=== PATIENT | female | born 1985 ===

== ENCOUNTER 2020-12-23 21:55 | Emergency (ER) | payer SELFPAY ==
[2020-12-23] MEDS ORDERED: Sodium Chloride 0.9% 10 ML Syringe FLUSH PRN (23:23)
[2020-12-23] MEDS ORDERED: Lactated Ringers 1,000 ML IV ONE (23:23)
[2020-12-23] MEDS ORDERED: Benzonatate 100 MG Cap PO ONE (23:23)
[2020-12-23] MEDS ORDERED: Ketorolac 15 MG/ML SDV IVPUSH ONE (23:23)
[2020-12-23] MEDS ORDERED: Ondansetron 4 MG/2 ML SDV IVPUSH ONE (23:24)
--- NOTE | 2020-12-23 23:30 | EDM.PDOC ---
ED HPI GENERAL MEDICAL PROBLEM - General Chief Complaint: Respiratory Problem Stated Complaint: COVID+/DIARRHEA/CHILLS/BODY ACHE/FEVER/DEHYDRATION Time Seen by Provider: 12/23/20 23:01 - History of Present Illness INITIAL COMMENTS - FREE TEXT/NARRATIVE: Patient arrived to ED by private vehicle Symptoms began 12/17/2020 with diagnosis of COVID-19 later that day Reports onset of nausea, vomiting, diarrhea, body aches, headaches, fever Developed cough on second or third day, for which she has been prescribed promethazine/codeine Cough has progressed despite use of that medication Endorses shortness of breath Past 2 days has developed vomiting Estimates "30" episodes of vomiting today Has not been able to tolerate oral intake Endorses persistence of other symptoms since onset Overall pain severity is rated 10/10 Abdomen Pain Score (Numeric/FACES): 10 - Related Data Allergies Allergy/AdvReac Type Severity Reaction Status Date / Time No Known Allergies Allergy Verified 12/23/20 22:44 Home Meds: Home Meds Codeine/Promethazine HCl [Promethazine-Codeine Syrup] 0 ml PO ASDIRECTED PRN 12/23/20 [History] Benzonatate 100 mg PO TID PRN #12 capsule 12/24/20 [Rx] ondansetron HCL [Ondansetron HCl] 4 mg PO Q6H PRN #15 tablet 12/24/20 [Rx] Past Medical History - Past Health History Medical/Surgical History: Denies Medical/Surgical History Social & Family History - Tobacco Use Tobacco Use Status *Q: Never Tobacco User ED ROS GENERAL - Review of Systems Review Of Systems: See Below Free Text/Narrative/Comment: Constitutional -; malaise/fatigue fever Eyes - no eye pain; no visual disturbance ENT - no rhinorrhea; no congestion; no epistaxis Cardiovascular - no chest pain Respiratory - shortness of breath; cough Gastrointestinal - abdominal pain; nausea; vomiting; diarrhea Genitourinary - no dysuria Musculoskeletal - no neck pain; no back pain; no extremity injury; myalgias Neurological - headache; no speech disturbance; no weakness ED EXAM, GENERAL - Physical Exam Exam: See Below Free Text/Narrative:: Constitutional - awake; alert; moderate pain in general distress Head - no facial swelling or weakness Eyes - extra ocular motion intact; conjunctiva normal ENT - no nasal deformity; no epistaxis; normal phonation Neck - no swelling Respiratory - normal respiratory effort; mild, bibasilar crackles; no wheezing; no stridor Cardiovascular - regular rhythm; tachycardia; S1; S2; grade 1/6 systolic murmur GI/Abdomen - normal bowel sounds; soft; mild tenderness right mid and lower abdomen; no rebound; no guarding; no mass Musculoskeletal - grossly normal strength and motion; no swelling or deformity Skin - warm; dry Neurologic - normal speech; no weakness Psychiatric - normal mood and affect; memory and attention normal Course - Vital Signs Text/Narrative:: . Considered etiologies included: COVID-19, pneumonia, dehydration, metabolic derangement Symptoms and examination were discussed Investigations were initiated Treatment was initiated with IV fluid infusion, benzonatate, ketorolac, and ondansetron At reevaluation there was improvement in nausea and discomfort and tachycardia There was no significant change in cough Results were discussed, with findings for pneumonia consistent with COVID-19 Pulse oximetry remained adequate Patient tolerated oral fluid intake without further vomiting Symptomatic treatment and self-isolation was reviewed Albuterol inhaler with spacer was provided for treatment of cough Patient was felt to be stable for outpatient follow-up Return precautions were provided Last Recorded V/S: Last Vital Signs Temp 36.4 C 12/23/20 22:45 Pulse 111 H 12/23/20 22:45 Resp 20 12/23/20 22:45 BP 90/59 L 12/23/20 22:45 Pulse Ox 95 12/24/20 01:34 - Orders/Labs/Meds Orders: Active Orders 24 hr Category Date Time Status Chest 1V Frontal [CR] Stat Exams 12/23/20 23:23 Taken Peripheral IV Insertion Adult [OM.PC] Stat Oth 12/23/20 23:23 Ordered Labs: Laboratory Tests 12/24/20 12/24/20 Range/Units 00:28 00:28 WBC 4.97 (3.98-10.04) K/mm3 RBC 5.29 H (3.98-5.22) M/mm3 Hgb 15.0 (11.2-15.7) gm/dl Hct 44.4 (34.1-44.9) % MCV 83.9 (79.4-94.8) fl MCH 28.4 (25.6-32.2) pg MCHC 33.8 (32.2-35.5) g/dl RDW Std Deviation 39.6 (36.4-46.3) fL Plt Count 174 L (182-369) K/mm3 MPV 9.9 (9.4-12.3) fl Neut % (Auto) 65.1 (34.0-71.1) % Lymph % (Auto) 25.2 (19.3-51.7) % [place] % (Auto) 9.1 (4.7-12.5) % Eos % (Auto) 0 L (0.7-5.8) Baso % (Auto) 0.4 (0.1-1.2) % Neut # (Auto) 3.24 (1.56-6.13) K/mm3 Lymph # (Auto) 1.25 (1.18-3.74) K/mm3 [place] # (Auto) 0.45 H (0.24-0.36) K/mm3 Eos # (Auto) 0.00 L (0.04-0.36) K/mm3 Baso # (Auto) 0.02 (0.01-0.08) K/mm3 Manual Slide Review Normal smear Sodium 135 L (136-145) mEq/L Potassium 3.9 (3.5-5.1) mEq/L Chloride 98 (98-107) mEq/L Carbon Dioxide 28 (21-32) mEq/L Anion Gap 12.9 (5-15) BUN 10 (7-18) mg/dL Creatinine 0.9 (0.55-1.02) mg/dL Est Cr Clr Drug Dosing 73.90 mL/min Estimated GFR (MDRD) > 60 (>60) mL/min BUN/Creatinine Ratio 11.1 L (14-18) Glucose 117 H (70-99) mg/dL Calcium 7.5 L (8.5-10.1) mg/dL Total Bilirubin 0.3 (0.2-1.0) mg/dL AST 48 H (15-37) U/L ALT 29 (14-59) U/L Alkaline Phosphatase 70 (46-116) U/L Total Protein 7.0 (6.4-8.2) g/dl Albumin 2.9 L (3.4-5.0) g/dl Globulin 4.1 gm/dL Albumin/Globulin Ratio 0.7 L (1-2) Meds: Medications Discontinued Medications Generic Name Dose Route Start Last Admin Trade Name Freq PRN Reason Stop Dose Admin Albuterol 0 gm 12/24/20 01:23 12/24/20 01:33 Albuterol 6.7 Gm Inhaler INH 2 inhalation Q4H PRN Administration Cough Benzonatate 200 mg 12/23/20 23:23 12/23/20 23:54 Benzonatate 100 Mg Cap PO 12/23/20 23:24 200 mg ONETIME ONE Administration Lactated Ringer's 1,000 mls @ 999 mls/hr 12/23/20 23:23 12/23/20 23:54 Ringers, Lactated IV 12/24/20 00:23 999 mls/hr .BOLUS ONE Administration Ketorolac Tromethamine 15 mg 12/23/20 23:23 12/23/20 23:53 Ketorolac 15 Mg/Ml Sdv IVPUSH 12/23/20 23:24 15 mg ONETIME ONE Administration Ondansetron HCl 4 mg 12/23/20 23:24 12/23/20 23:53 Ondansetron 4 Mg/2 Ml Sdv IVPUSH 12/23/20 23:25 4 mg ONETIME ONE Administration Sodium Chloride 10 ml 12/23/20 23:23 12/23/20 23:56 Sodium Chloride 0.9% 10 Ml Syringe FLUSH 10 ml ASDIRECTED PRN Administration Keep Vein Open - Radiology Interpretation Free Text/Narrative:: XR chest, AP portable, interpreted by press writer: Patchy bilateral infiltrates including left perihilar and bibasilar Departure - Departure Time of Disposition: 01:30 Disposition: Home, Self-Care 01 Clinical Impression: COVID-19 virus infection, Pneumonia due to COVID-19 virus, Gastroenteritis - Discharge Information *PRESCRIPTION DRUG MONITORING PROGRAM REVIEWED*: Not Applicable *COPY OF PRESCRIPTION DRUG MONITORING REPORT IN PATIENT CARMELA: Not Applicable Prescriptions: Benzonatate 100 mg PO TID PRN #12 capsule PRN Reason: Cough ondansetron HCL [Ondansetron HCl] 4 mg PO Q6H PRN #15 tablet PRN Reason: Nausea/Vomiting Instructions: COVID-19: What to Do if You Are Sick - [facility] (05/02/2020) Referrals: PCP,None [Primary Care Provider] - Forms: ED Department Discharge Additional Instructions: Your evaluation in the emergency department showed findings for pneumonia due to COVID-19 Continue self-isolation in accordance with CDC guidelines for COVID-19 Isolation can be discontinued when: - there has been improvement in symptoms and - there has been no fever for 24 to 48 hours and - at least 10 days have passed since symptoms began Return if condition worsens May resume general activity and light diet as tolerated If vomiting occurs, stop oral intake for 30-60 minutes, then resume clear liquid sips, 2-3 every 10-15 minutes, and advance slowly as tolerated May use LOPERAMIDE (Imodium) as needed for diarrhea, per product instructions May take ONDANSETRON as prescribed, as needed for nausea/vomiting May take BENZONATATE as prescribed, as needed for cough Use ALBUTEROL inhaler via spacer, 2 puffs every 4 hours as needed, for cough or shortness of breath Continue usual medications Follow-up with primary care provider is recommended Sepsis Event Note (ED) - Evaluation Sepsis Screening Result: No Definite Risk - Focused Exam Vital Signs: Vital Signs Temp Pulse Resp BP Pulse Ox Pulse Ox 12/24/20 01:34 95 12/23/20 22:45 36.4 C 111 H 20 90/59 L 95 - My Orders Last 24 Hours: My Active Orders 12/23/20 23:23 Chest 1V Frontal [CR] Stat Peripheral IV Insertion Adult [OM.PC] Stat - Assessment/Plan Last 24 Hours: My Active Orders 12/23/20 23:23 Chest 1V Frontal [CR] Stat Peripheral IV Insertion Adult [OM.PC] Stat
[2020-12-24] MEDS ORDERED: Albuterol 6.7 GM Inhaler INH PRN (01:23)
--- NOTE | 2020-12-24 06:57 | CR ---
Chest: Frontal view of the chest was obtained. Comparison: No prior chest imaging is available. Patchy area of increased density are seen within both mid and lower lungs. Heart size and mediastinum are normal. Bony structures are unremarkable. Impression: 1. Increased density within the mid and lower lungs. Findings most likely represent COVID pneumonia. Diagnostic code #3
== END 2020-12-24 02:00 | disposition home or self-care (01) ==
LOC: JD.ED 21:55
DX: U07.1 COVID-19 (principal); J12.82 Pneumonia due to coronavirus disease 2019; K52.9 Noninfective gastroenteritis and colitis, unspecified
CPT/HCPCS: 36415; 71045; 71045-26; 80053; 85025; 94640; 96374; 96375; 99284; 99284-25; A9270-GY; J1885; J2405; J7120

== ENCOUNTER 2020-12-25 16:19 | Inpatient (IN) | payer SELFPAY ==
[2020-12-25] MEDS ORDERED: Metoclopramide 10 MG/2 ML SDV IVPUSH ONE (16:46)
[2020-12-25] MEDS ORDERED: REMDESIVIR 200 MG in Sodium Chloride 0.9% 250 ML IV ONE (16:51)
[2020-12-25] MEDS ORDERED: Dexamethasone 4 MG/ML 5 ML MDV IV ONE (16:54)
--- NOTE | 2020-12-25 16:56 | EDM.PDOC ---
ED HPI GENERAL MEDICAL PROBLEM - General Chief Complaint: Respiratory Problem Stated Complaint: COVID+ SOB Time Seen by Provider: 12/25/20 16:31 Source of Information: Reports: Patient History Limitations: Reports: No Limitations - History of Present Illness INITIAL COMMENTS - FREE TEXT/NARRATIVE: 35-year-old female presents to the ED with dyspnea and worsening symptoms of COVID-19 pneumonia. She reports that pulse oximeter at home is as low as 84 to 88%. She is dyspneic on minimal exertion such as walking from the bedroom to the bathroom. Continues to have a paroxysmal mildly productive cough. When seen through the ED 2 days ago she had bilateral pneumonia in the lower lobes. She believes her initial onset of illness was December 17 making her on day 8 of current illness. Continues to have low-grade fever and chills. Continues to have nausea and vomiting and diarrhea. She states she has a loose yellow stool almost every hour worsened by coughing. She has not been able to retain any significant amount of fluids or solids for 5 days. Feels very weak and dizzy upon standing. She lives alone . She believes she contracted the virus from one of her friends. She is normally not on any medications. She was placed on codeine with Phenergan cough syrup and benzatonate cough tablets and Zofran sublingual [address] Meehan through the ED. She states for the most part she has been bed ridden since going home. Onset: Sudden Onset Date: 12/17/20 (Onset of fever chills body aches and headache.) Duration: Day(s):, Constant, Getting Worse Location: Reports: Chest (Paroxysmal productive sounding cough at times.), Other (Continued nausea and vomiting and diarrhea with inability eat or drink. Continued low-grade fever.) Quality: Reports: Ache (Neurolyse myalgia and persistent headache) Severity: Severe Improves with: Reports: None Worsens with: Reports: Other (Is worse when she stands up and has to get to the bathroom.) Context: Denies: Activity, Exercise, Lifting, Sick Contact, Trauma, Other Associated Symptoms: Reports: Chest Pain, Cough, cough w sputum, Diaphoresis, Fever/Chills (With initial onset of illness.), Headaches ( More so at the initial onset of illness.), Loss of Appetite ( Headaches persist.), Malaise, Nausea/Vomiting, Shortness of Breath, Weakness, Other (Persistent diarrhea with 1 small yellow stool per hour almost. This would be considered starvation stools.). Denies: No Other Symptoms (Upper central chest pain from coughing.), Confusion, Rash, Seizure, Syncope Generalized Pain Score (Numeric/FACES): 6 - Related Data Allergies Allergy/AdvReac Type Severity Reaction Status Date / Time No Known Allergies Allergy Verified 12/25/20 16:29 Home Meds: Home Meds Codeine/Promethazine HCl [Promethazine-Codeine Syrup] 0 ml PO ASDIRECTED PRN 12/23/20 [History] Benzonatate 100 mg PO TID PRN #12 capsule 12/24/20 [Rx] ondansetron HCL [Ondansetron HCl] 4 mg PO Q6H PRN #15 tablet 12/24/20 [Rx] Past Medical History - Past Health History Medical/Surgical History: Denies Medical/Surgical History HEENT History: Reports: Impaired Vision Cardiovascular History: Reports: None Respiratory History: Reports: None Gastrointestinal History: Reports: None Genitourinary History: Reports: None 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 Musculoskeletal History: Reports: None Neurological History: Reports: None Psychiatric History: Reports: None Endocrine/Metabolic History: Reports: None Hematologic History: Reports: None Immunologic History: Reports: None Oncologic (Cancer) History: Reports: None Dermatologic History: Reports: None - Infectious Disease History Infectious Disease History: Reports: Chicken Pox, Novel Coronavirus - Past Surgical History HEENT Surgical History: Reports: None Social & Family History - Family History Family Medical History: No Pertinent Family History - Tobacco Use Tobacco Use Status *Q: Never Tobacco User - Caffeine Use Caffeine Use: Reports: Energy Drinks - Recreational Drug Use Recreational Drug Use: No - Living Situation & Occupation Living situation: Reports: Single, Alone Occupation: Employed ED ROS GENERAL - Review of Systems Review Of Systems: See Below Constitutional: Reports: Fever, Chills, Malaise, Weakness, Fatigue, Decreased Appetite, Weight Loss HEENT: Reports: Throat Pain (Mild sore throat.), Other (Nasal congestion. Associated loss of sense of taste and smell.) Respiratory: Reports: Shortness of Breath, Cough, Sputum. Denies: Wheezing, Pleuritic Chest Pain, Hemoptysis, Other Cardiovascular: Reports: Chest Pain (Upper central chest pain from coughing.), Dyspnea on Exertion, Lightheadedness (Lightheaded and dizzy upon standing.). Denies: Blood Pressure Problem, Claudication, Edema, Orthopnea, Palpitations Endocrine: Reports: Fatigue GI/Abdominal: Reports: Diarrhea, Nausea (Small quantity yellow loose stool almost every hour.), Vomiting (Persistent nausea and vomiting. Emesis is bilious.) : Reports: Other (Urine is dark ruba in color.) Musculoskeletal: Reports: Muscle Pain Skin: Reports: No Symptoms (Generalized myalgia) Neurological: Reports: Dizziness, Headache, Difficulty Walking (Due to weakness and dyspnea.), Weakness. Denies: Numbness, Syncope, Tingling Psychiatric: Reports: No Symptoms Hematologic/Lymphatic: Reports: No Symptoms Immunologic: Reports: No Symptoms ED EXAM, GENERAL - Physical Exam Exam: See Below Exam Limited By: No Limitations General Appearance: Alert, WD/WN, Mild Distress, Other (Appears ill. She does feel warm palpation. Nurses recorded temperature is 36.3 degrees. Heart rate at the bedside was 118 and sinus. Respiratory is 24 with O2 sats of 92% room air. It wavers between 86 to 92%. Blood pressure 123/79.) Eye Exam: Bilateral Eye: Normal Inspection, PERRL (No scleral icterus or blepharal pallor.) Ears: Normal TMs Throat/Mouth: Normal Inspection, Normal Lips, Normal Oropharynx, Other (Tongue is very dry and coated white. Oropharynx shows no erythema or exudate.) Head: Atraumatic, Normocephalic Neck: Normal Inspection, Supple, Non-Tender, Full Range of Motion. No: Carotid Bruit, Lymphadenopathy (L), Lymphadenopathy (R) Respiratory/Chest: Lungs Clear, No Accessory Muscle Use, Respiratory Distress, Rhonchi (Rhonchi throughout all posterior lung casey slightly worse on the left as compared to the right.), Wheezing (Very rare expiratory wheeze.) Cardiovascular: Normal Peripheral Pulses (Tachypnea at rest with hypoxemia.), Regular Rate, Rhythm, No Edema, No Gallop, No Murmur, No Rub Peripheral Pulses: 3+: Carotid (L), Carotid (R), Posterior Tibial (L), Posterior Tibial (R), Dorsalis Pedis (L), Dorsalis Pedis (R) GI/Abdominal: Normal Bowel Sounds, Soft, Non-Tender, No Organomegaly, No Distention, No Abnormal Bruit Back Exam: Normal Inspection, Full Range of Motion. No: CVA Tenderness (L), CVA Tenderness (R) Extremities: Normal Inspection, Normal Range of Motion, Non-Tender, No Pedal Edema Neurological: Alert, Oriented, CN II-XII Intact, Normal Cognition Psychiatric: Normal Affect, Normal Mood Skin Exam: Warm, Dry, Intact, Normal Color, No Rash #1 Interpretation EKG Date: 12/25/20 Time: 17:01 Rhythm: Other (Sinus tachycardia) Rate (Beats/Min): 102 [place]: Normal P-Wave: Present QRS: Other (RSR prime wave leads V1 and V2 consider normal variant.) ST-T: Other (T wave flattening V1 to V2 leads III and aVF. Consider metabolic abnormality) QT: Normal EKG Interpretation Comments: Abnormal ECG Course - Vital Signs Last Recorded V/S: Last Vital Signs Temp 36.2 C 12/25/20 16:57 Pulse 99 12/25/20 17:55 Resp 16 12/25/20 17:55 BP 106/74 12/25/20 17:55 Pulse Ox 91 L 12/25/20 17:55 - Orders/Labs/Meds Orders: Active Orders 24 hr Category Date Time Status Chest 1V Frontal [CR] Stat Exams 12/25/20 16:47 Taken URINALYSIS W/MICROSCOPIC [UA W/MICROSCOPIC] [URIN] Stat Lab 12/25/20 16:49 Ordered Codeine/Promethazine [Phenergan with Codeine] Med 12/25/20 17:40 Active 5 ml PO ASDIRECTED PRN Dextrose 5%-Lactated Ringers 1,000 ml Med 12/25/20 17:00 Active IV ASDIRECTED Medication Orders Acetaminophen (Acetaminophen 325 Mg Tab) 650 mg PO Q4H PRN PRN Reason: Pain (Mild 1-3)/fever Albuterol/Ipratropium (Albuterol/Ipratropium 3.0-0.5 Mg/3 Ml Neb Soln) 3 ml NEB Q4H PRN PRN Reason: Shortness Of Breath/wheezing Dexamethasone (Dexamethasone 4 Mg Tab) 6 mg PO DAILY MIRIAM Docusate Sodium (Docusate Sodium 100 Mg Cap) 100 mg PO BID PRN PRN Reason: Constipation Enoxaparin Sodium (Enoxaparin 40 Mg/0.4 Ml Syringe) 40 mg SUBCUT DAILY [facility] Dextrose/Lactated Ringer's (Dextrose 5%-Lactated Ringers) 1,000 mls @ 250 mls/hr IV ASDIRECTED [facility] Last Admin: 12/25/20 17:44 Dose: 250 mls/hr Documented by: JESSICA Sodium Chloride (Normal Saline) 1,000 mls @ 125 mls/hr IV ASDIRECTED [facility] Remdesivir 100 mg/ Sodium (Chloride) 100 mls @ 100 mls/hr IV Q24H [facility] Stop: 12/29/20 12:59 Ondansetron HCl (Ondansetron 4 Mg Tab.Dis) 4 mg PO Q4H PRN PRN Reason: nausea, able to take PO Ondansetron HCl (Ondansetron 4 Mg/2 Ml Sdv) 4 mg IV Q4H PRN PRN Reason: Nausea/Vomiting Oxycodone HCl (Oxycodone 5 Mg Tab) 5 mg PO Q4H PRN PRN Reason: Pain (moderate 4-6) Promethazine HCl/Codeine (Codeine/Promethazine 10-6.25 Mg/5 Ml Syrup 5 Ml Ud Cup) 5 ml PO ASDIRECTED PRN PRN Reason: Cough Temazepam (Temazepam 15 Mg Cap) 15 mg PO BEDTIME PRN PRN Reason: Sleep Labs: Laboratory Tests 12/25/20 Range/Units 16:50 Puncture Site Rt radial ABG pH 7.45 (7.35-7.45) ABG pCO2 41.1 (35.0-45.0) mmHg ABG pO2 47.0 L (80.0-100.0) mmHg ABG HCO3 28.4 H (22.0-26.0) meq/L ABG O2 Saturation 81.4 L (96.0-97.0) % ABG Base Excess 4.5 H (-2-2.0) Mike Test Positive O2 Delivery Device Room air Meds: Medications Generic Name Dose Route Start Last Admin Trade Name Freq PRN Reason Stop Dose Admin Acetaminophen 650 mg 12/25/20 17:43 Acetaminophen 325 Mg Tab PO Q4H PRN Pain (Mild 1-3)/fever Albuterol/Ipratropium 3 ml 12/25/20 17:43 Albuterol/Ipratropium 3.0-0.5 Mg/3 Ml Neb Soln NEB Q4H PRN Shortness Of Breath/wheezing Dexamethasone 6 mg 12/26/20 09:00 Dexamethasone 4 Mg Tab PO DAILY MIRIAM Docusate Sodium 100 mg 12/25/20 17:43 Docusate Sodium 100 Mg Cap PO BID PRN Constipation Enoxaparin Sodium 40 mg 12/26/20 09:00 Enoxaparin 40 Mg/0.4 Ml Syringe SUBCUT DAILY MIRIAM Dextrose/Lactated Ringer's 1,000 mls @ 250 mls/hr 12/25/20 17:00 12/25/20 17:44 Dextrose 5%-Lactated Ringers IV 250 mls/hr ASDIRECTED MIRIAM Administration Sodium Chloride 1,000 mls @ 125 mls/hr 12/25/20 17:45 Normal Saline IV ASDIRECTED MIRIAM Remdesivir 100 mg/ Sodium 100 mls @ 100 mls/hr 12/26/20 12:00 Chloride IV 12/29/20 12:59 Q24H [facility] Ondansetron HCl 4 mg 12/25/20 17:43 Ondansetron 4 Mg Tab.Dis PO Q4H PRN nausea, able to take PO Ondansetron HCl 4 mg 12/25/20 17:43 Ondansetron 4 Mg/2 Ml Sdv IV Q4H PRN Nausea/Vomiting Oxycodone HCl 5 mg 12/25/20 17:43 Oxycodone 5 Mg Tab PO Q4H PRN Pain (moderate 4-6) Promethazine HCl/Codeine 5 ml 12/25/20 17:40 Codeine/Promethazine 10-6.25 Mg/5 Ml Syrup 5 Ml Ud Cup PO ASDIRECTED PRN Cough Temazepam 15 mg 12/25/20 17:43 Temazepam 15 Mg Cap PO BEDTIME PRN Sleep Discontinued Medications Generic Name Dose Route Start Last Admin Trade Name Freq PRN Reason Stop Dose Admin Dexamethasone 6 mg 12/25/20 16:54 12/25/20 17:43 Dexamethasone 4 Mg/Ml 5 Ml Mdv IV 12/25/20 16:55 Not Given ONETIME ONE Remdesivir 200 mg/ Sodium 250 mls @ 250 mls/hr 12/25/20 16:51 12/25/20 17:47 Chloride IV 12/25/20 16:52 250 mls/hr ONETIME ONE Administration Remdesivir Confirm 12/25/20 17:14 Remdesivir Administered 12/25/20 17:15 Dose 100 mls @ as directed .ROUTE .STK-MED ONE Metoclopramide HCl 7.5 mg 12/25/20 16:46 12/25/20 17:45 Metoclopramide 10 Mg/2 Ml Sdv IVPUSH 12/25/20 16:47 Not Given ONETIME ONE Ondansetron HCl 4 mg 12/25/20 18:08 12/25/20 18:17 Ondansetron 4 Mg/2 Ml Sdv IVPUSH 12/25/20 18:09 4 mg ONETIME ONE Administration - Radiology Interpretation Free Text/Narrative:: 35-year-old female whom is known to be COVID-19 positive diagnosed 2 days ago and seen through the ED presents to the ED due to worsening symptoms of par oxysmal cough persistent nausea vomiting and minimal diarrhea with inability to eat or drink. Associated headache low-grade fever and severe paroxysmal cough. O2 sats at home are anywhere between 84 and 88%. In the ED she has been between 84 and 92% on room air she clinically has rhonchi throughout all lung casey posteriorly. On chest x-ray done 2 days ago she had viral pneumonia involving both lower lobes of her lung and lingula on the left side. Plan she will have ABGs completed. She will then be started on oxygen 2 L/min by nasal cannula. She is dehydrated. She will start D5 Ringer's lactate at 250 mils per hour. Routine labs to be ordered including serum ferritin and LDH in preparation for admission to the hospital. She will receive remdesivir 200 mg IV and dexamethasone 6 mg IV. - Re-Assessments/Exams Free Text/Narrative Re-Assessment/Exam: 12/25/20 18:01 chest x-ray done portable when compared to x-ray of the chest done 2 days ago reveals advancement of pneumonia to include all 5 lobes of her lungs. There is poor inspirational phase. Heart and mediastinum are normal.ABGs revealed a pH of 7.45 with a PCO2 of 41.1 and a PO2 of 47.0 on room air compatible with respiratory failure. Bicarb is 28.4 O2 saturations 81.4% on room air. No other labs are yet available. Apparently they have been drawn. 12/25/20 18:50 White count is normal at 5.82. The differential is 71.7% neutrophils. Hemoglobin is 15.1 with hematocrit of 45.2. Platelet count is 238,000. PT is 9.7 with an INR of less than 0.93. PTT is 27.1. D-dimer is 0.41 in the normal range. Sodium is 136 potassium is low at 3.0. Chloride 98 with a bicarb of 30. Anion gap is 11.0. BUN is 9 with a creatinine of 0.8 and a GFR greater than 60. Glucose is 131. Calcium slightly low at 7.9 from not eating. Magnesium is 2.3. Serum ferritin is elevated at 892. Liver function is normal. LDH elevated at 424 compatible with COVID-19 illness. Troponin I is less than 0.017. C-reactive protein is elevated at 7.4. BNP is 25. Total protein 7.6 with an albumin fraction low at 2.9 [address] from not eating. Dr. Omid Anderson on-call hospitalist is seen the patient in the ED an hour ago and admission orders have been written. Patient be transferred to the med surgery floor as soon as a bed is available. Departure - Departure Time of Disposition: 18:50 Disposition: Admitted As Inpatient 64 Condition: Serious Clinical Impression: 2019 novel coronavirus-infected pneumonia (NCIP), Volume depletion, Pneumonia due to COVID-19 virus Respiratory failure with hypoxia Qualifiers: Chronicity: acute Qualified Code(s): J96.01 - Acute respiratory failure with hypoxia - Discharge Information *PRESCRIPTION DRUG MONITORING PROGRAM REVIEWED*: Not Applicable *COPY OF PRESCRIPTION DRUG MONITORING REPORT IN PATIENT CARMELA: Not Applicable Sepsis Event Note (ED) - Evaluation Sepsis Screening Result: No Definite Risk - Focused Exam Vital Signs: Vital Signs Temp Pulse Resp BP Pulse Ox 12/25/20 16:57 36.2 C 108 H 24 H 113/77 92 L 12/25/20 16:35 36.3 C 108 H 24 H 123/79 92 L - My Orders Last 24 Hours: My Active Orders 12/25/20 16:47 Chest 1V Frontal [CR] Stat 12/25/20 16:49 URINALYSIS W/MICROSCOPIC [UA W/MICROSCOPIC] [URIN] Stat 12/25/20 17:00 Dextrose 5%-Lactated Ringers 1,000 ml IV ASDIRECTED - Assessment/Plan Last 24 Hours: My Active Orders 12/25/20 16:47 Chest 1V Frontal [CR] Stat 12/25/20 16:49 URINALYSIS W/MICROSCOPIC [UA W/MICROSCOPIC] [URIN] Stat 12/25/20 17:00 Dextrose 5%-Lactated Ringers 1,000 ml IV ASDIRECTED
[2020-12-25] MEDS ORDERED: Dextrose 5%-Lactated Ringers 1,000 ML IV SCH (17:00)
[2020-12-25] MEDS ORDERED: REMDESIVIR 100 MG ONE (17:14)
--- NOTE | 2020-12-25 17:39 | PCM.HP.2 ---
H&P History of Present Illness - General Date of Service: 12/25/20 Admit Problem/Dx: COVID-19 pneumonia with gastroenteritis Source of Information: Patient History Limitations: Reports: No Limitations - History of Present Illness Initial Comments - Free Text/Narative: The patient is a 35-year-old lady who had presented to the emergency department complaining of shortness of breath and worsening symptoms of COVID-19 pneumonia. The patient reports that she had been diagnosed with COVID-19 2 days prior to presentation. Initially, she had been placed on Phenergan with codeine as well as Tessalon Perles and oral Zofran. The patient reports that she has had nausea and vomiting along with diarrhea. She also reports that she has had fever and chills. The patient currently lives alone and she feels like she is just not getting any better. The patient does have a cough which is exacerbated by deep breathing. The patient also reports that she has been feeling weak and dizzy. The patient is not taking any medications and she has no significant health history. Onset of Symptoms: Reports: Gradual Duration of Symptoms: Reports: Day(s):, Getting Worse Location: Reports: Chest, Abdomen Quality: Reports: Ache Severity: Moderate Improves with: Reports: Medication, Rest Worsens with: Reports: Breathing, Movement Context: Denies: Sick Contact Associated Symptoms: Reports: cough w sputum, Diaphoresis, Fever/Chills, Nausea/Vomiting, Shortness of Breath, Other (Loss of sense of taste and smell) Generalized Pain Score (Numeric/FACES): 6 - Related Data Allergies/Adverse Reactions: Allergies Allergy/AdvReac Type Severity Reaction Status Date / Time No Known Allergies Allergy Verified 12/25/20 21:23 Home Medications: Home Meds Codeine/Promethazine HCl [Promethazine-Codeine Syrup] 0 ml PO ASDIRECTED PRN 12/23/20 [History] Benzonatate 100 mg PO TID PRN #12 capsule 12/24/20 [Rx] ondansetron HCL [Ondansetron HCl] 4 mg PO Q6H PRN #15 tablet 12/24/20 [Rx] Past Medical History - Past Health History Medical/Surgical History: Denies Medical/Surgical History HEENT History: Reports: Impaired Vision Cardiovascular History: Reports: None Respiratory History: Reports: None Gastrointestinal History: Reports: None Genitourinary History: Reports: None 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 Musculoskeletal History: Reports: None Neurological History: Reports: None Psychiatric History: Reports: None Endocrine/Metabolic History: Reports: None Hematologic History: Reports: None Immunologic History: Reports: None Oncologic (Cancer) History: Reports: None Dermatologic History: Reports: None - Infectious Disease History Infectious Disease History: Reports: Chicken Pox, Novel Coronavirus - Past Surgical History HEENT Surgical History: Reports: None Social & Family History - Family History Family Medical History: No Pertinent Family History - Tobacco Use Tobacco Use Status *Q: Never Tobacco User - Caffeine Use Caffeine Use: Reports: Energy Drinks - Recreational Drug Use Recreational Drug Use: No - Living Situation & Occupation Living situation: Reports: Single, Alone Occupation: Employed H&P Review of Systems - Review of Systems: Review Of Systems: See Below General: Reports: Fever, Chills, Weakness, Fatigue, Decreased Appetite HEENT: Reports: No Symptoms Pulmonary: Reports: Shortness of Breath, Wheezing, Cough, Sputum Cardiovascular: Reports: No Symptoms Gastrointestinal: Reports: Diarrhea, Nausea, Vomiting Genitourinary: Reports: No Symptoms Musculoskeletal: Reports: No Symptoms Skin: Reports: No Symptoms Psychiatric: Reports: No Symptoms Neurological: Reports: No Symptoms Hematologic/Lymphatic: Reports: No Symptoms Immunologic: Reports: No Symptoms Exam - Exam Exam: See Below - Vital Signs Vital Signs: Last Vital Signs Temp 36.2 C 12/25/20 16:57 Pulse 108 H 12/25/20 16:57 Resp 24 H 12/25/20 16:57 BP 113/77 12/25/20 16:57 Pulse Ox 92 L 12/25/20 16:57 Weight: 86.273 kg - Exam Quality Assessment: No: Supplemental Oxygen, DVT Prophylaxis General: Alert, Oriented, Cooperative, Mild Distress HEENT: Conjunctiva Clear, EACs Clear, EOMI, Hearing Intact, PERRLA. No: Mucosa Moist & Sunburst (Dry) Neck: Supple, Trachea Midline Lungs: Decreased Breath Sounds, Crackles, Rales Cardiovascular: Regular Rhythm, Tachycardia GI/Abdominal Exam: Normal Bowel Sounds, Soft, Non-Tender, No Distention. No: Guarding, Rigid, Rebound (Female) Exam: Deferred Rectal (Female) Exam: Deferred Back Exam: Normal Inspection, Full Range of Motion Extremities: Normal Inspection, No Pedal Edema Skin: Warm, Dry, Intact Neurological: Cranial Nerves Intact, Normal Speech, Normal Tone Psychiatric: Alert, Normal Affect, Normal Mood - Patient Data Result Diagrams: 12/26/20 05:00 12/26/20 05:00 Sepsis Event Note - Evaluation Sepsis Screening Result: No Definite Risk - Focused Exam Vital Signs: Vital Signs Temp Pulse Resp BP Pulse Ox 12/25/20 16:57 36.2 C 108 H 24 H 113/77 92 L 12/25/20 16:35 36.3 C 108 H 24 H 123/79 92 L - Problem List (1) Pneumonia due to COVID-19 virus SNOMED Code(s): 929698003184956739 ICD Code: U07.1 - COVID-19; J12.82 - PNEUMONIA DUE TO CORONAVIRUS DISEASE 2019 Status: Acute Priority: High Current Visit: Yes (2) Respiratory failure with hypoxia SNOMED Code(s): 05498553906454426 ICD Code: J96.91 - RESPIRATORY FAILURE, UNSPECIFIED WITH HYPOXIA Status: Acute Priority: High Current Visit: Yes Qualifiers: Chronicity: acute Qualified Code(s): J96.01 - Acute respiratory failure with hypoxia (3) Volume depletion SNOMED Code(s): 816684895 ICD Code: E86.9 - VOLUME DEPLETION, UNSPECIFIED Status: Acute Priority: High Current Visit: Yes (4) Gastroenteritis SNOMED Code(s): 34635547 ICD Code: K52.9 - NONINFECTIVE GASTROENTERITIS AND COLITIS, UNSPECIFIED Status: Acute Priority: High Current Visit: Yes Problem List Initiated/Reviewed/Updated: Yes Orders Last 24hrs: Active Orders 24 hr Category Date Time Status EKG Documentation Completion [RC] STAT Care 12/25/20 16:47 Active Oxygen Therapy [RC] ASDIRECTED Care 12/25/20 16:48 Active Chest 1V Frontal [CR] Stat Exams 12/25/20 16:47 Taken ABG [BLOOD GAS ARTERIAL] [BG] Stat Lab 12/25/20 16:50 Ordered C-REACTIVE PROTEIN [CHEM] Stat Lab 12/25/20 16:47 Ordered CBC WITH AUTO DIFF [HEME] Stat Lab 12/25/20 16:47 Ordered COMPREHENSIVE METABOLIC PN,CMP [CHEM] Stat Lab 12/25/20 16:47 Ordered DD [D-DIMER QUANTITATIVE] [COAG] Stat Lab 12/25/20 16:47 Ordered FERRITIN [CHEM] Stat Lab 12/25/20 16:49 Ordered INR,PT,PROTHROMBIN TIME [COAG] Stat Lab 12/25/20 16:47 Ordered LACTATE DEHYDROGENASE,LDH [CHEM] Stat Lab 12/25/20 16:47 Ordered MAGNESIUM [CHEM] Stat Lab 12/25/20 16:47 Ordered PRO B-TYPE NATRIUR PEPT,BNPPRO [CHEM] Stat Lab 12/25/20 16:49 Ordered PTT,PARTIAL THROMBOPLSTIN TIME [COAG] Stat Lab 12/25/20 16:47 Ordered TROPONIN I [CHEM] Stat Lab 12/25/20 16:47 Ordered URINALYSIS W/MICROSCOPIC [UA W/MICROSCOPIC] [URIN] Stat Lab 12/25/20 16:49 Ordered Dextrose 5%-Lactated Ringers 1,000 ml Med 12/25/20 17:00 Active IV ASDIRECTED Medication Orders Dextrose/Lactated Ringer's (Dextrose 5%-Lactated Ringers) 1,000 mls @ 250 mls/hr IV ASDIRECTED MIRIAM Assessment/Plan Comment:: The patient is a 35-year-old lady who had been under treatment for COVID-19 symptoms and had continued to decline. The patient has been admitted as an inpatient. She has been started on remdesivir 100 mg IV starting December 26, 2020 and she has also been placed on dexamethasone. The dexamethasone 6 mg p.o. daily will start tomorrow. The patient also has been ordered to have p.o. Zofran if tolerated or IV Zofran if needed. The patient also has been kept on her home Phenergan and codeine cough syrup. The patient's oxygen saturations will be kept around 92% and the oxygen will be titrated. Repeat laboratory studies have been ordered for the morning. The patient will have regular diet as tolerated. The patient has been encouraged to ambulate. She will have DVT prophylaxis with the use of Lovenox 40 mg subcutaneously daily. The patient should be appropriate for discharge once discontinuation of remdesivir. - Mortality Measure Prognosis:: Good
[2020-12-25] MEDS ORDERED: oxyCODONE 5 MG Tab PO PRN (17:43)
[2020-12-25] MEDS ORDERED: Ondansetron 4 MG Tab.DIS PO PRN (17:43)
[2020-12-25] MEDS ORDERED: Docusate Sodium 100 MG Cap PO PRN (17:43)
[2020-12-25] MEDS ORDERED: Ondansetron 4 MG/2 ML SDV IVPUSH ONE (18:08)
[2020-12-25] MEDS: Potassium Chloride 10 MEQ in Premix Bag 1 BAG IV SCH ×3 (20:17→23:07)
[2020-12-25] MEDS: Temazepam 15 MG Cap PO PRN (20:44)
[2020-12-25] MEDS: Codeine/Promethazine 10-6.25 MG/5 ML Syrup 5 ML UD Cup PO PRN (20:44)
--- NOTE | 2020-12-25 20:45 | CR ---
Chest: Frontal view of the chest was obtained. Comparison: Prior chest x-ray of 12/23/20. Patchy areas of increased density are seen on both sides of the chest. Findings have minimally worsened from prior exam. Heart size and mediastinum are normal. Bony structures are unremarkable. Impression: 1. Patchy areas of increased density on both sides of the chest. Findings have minimally worsened from previous exam. Findings are presumably representing continuing COVID pneumonia. 2. Other portions of the chest appear within normal limits. Diagnostic code #3
[2020-12-25] MEDS: Albuterol/Ipratropium 3.0-0.5 MG/3 ML Neb Soln NEB PRN (20:47)
[2020-12-25] MEDS: Sodium Chloride 0.9% 1,000 ML IV SCH (21:37)
[2020-12-26] MEDS: Potassium Chloride 10 MEQ in Premix Bag 1 BAG IV SCH (00:33)
[2020-12-26] MEDS: Albuterol/Ipratropium 3.0-0.5 MG/3 ML Neb Soln NEB PRN ×2 (01:06→05:20)
[2020-12-26] MEDS: Sodium Chloride 0.9% 1,000 ML IV SCH (05:03)
[2020-12-26] MEDS: Codeine/Promethazine 10-6.25 MG/5 ML Syrup 5 ML UD Cup PO PRN ×3 (05:03→20:18)
--- NOTE | 2020-12-26 08:00 | PCM.PN ---
<Nathaniel Bella - Last Filed: 12/26/20 11:05> - General Info Date of Service: 12/26/20 Admission Dx/Problem (Free Text): COVID-19 pneumonia with gastroenteritis Functional Status: Reports: Pain Controlled, Tolerating Diet, Ambulating (minimal ), Urinating, Incentive Spirometry, Other (acapella ). Denies: New Symptoms - Review of Systems General: Reports: Weakness, Fatigue, Malaise. Denies: Fever, Chills HEENT: Reports: No Symptoms. Denies: Headaches, Sore Throat Pulmonary: Reports: Shortness of Breath, Cough, Sputum. Denies: Pleuritic Chest Pain, Wheezing Cardiovascular: Reports: Dyspnea on Exertion. Denies: Chest Pain, Palpitations, Edema, Lightheadedness Gastrointestinal: Reports: Decreased Appetite, Diarrhea. Denies: Abdominal Pain, Constipation, Nausea, Vomiting Genitourinary: Reports: Pain Musculoskeletal: Reports: No Symptoms Skin: Reports: No Symptoms. Denies: Cyanosis Neurological: Reports: No Symptoms, Difficulty Walking, Weakness, Gait Disturbance. Denies: Confusion, Headache, Numbness, Pre-Existing Deficit, Seizure, Syncope, Tingling Psychiatric: Reports: No Symptoms - Patient Data Vitals - Most Recent: Last Vital Signs Temp 98.1 F 12/26/20 05:02 Pulse 77 12/26/20 05:02 Resp 18 12/26/20 05:02 BP 116/85 12/26/20 05:02 Pulse Ox 94 L 12/26/20 05:21 Weight - Most Recent: 84.912 kg I&O - Last 24 Hours: Intake & Output 12/25/20 12/26/20 12/26/20 22:59 06:59 14:59 Intake Total 2228 Output Total 800 Balance 1428 Lab Results Last 24 Hours: Laboratory Results - last 24 hr 12/25/20 12/25/20 12/25/20 Range/Units 16:50 17:50 17:50 WBC 5.82 (3.98-10.04) K/mm3 RBC 5.34 H (3.98-5.22) M/mm3 Hgb 15.1 (11.2-15.7) gm/dl Hct 45.2 H (34.1-44.9) % MCV 84.6 (79.4-94.8) fl MCH 28.3 (25.6-32.2) pg MCHC 33.4 (32.2-35.5) g/dl RDW Std Deviation 40.9 (36.4-46.3) fL Plt Count 238 (182-369) K/mm3 MPV 9.7 (9.4-12.3) fl Neut % (Auto) 71.7 H (34.0-71.1) % Lymph % (Auto) 21.1 (19.3-51.7) % Rock % (Auto) 6.7 (4.7-12.5) % Eos % (Auto) 0 L (0.7-5.8) Baso % (Auto) 0.2 (0.1-1.2) % Neut # (Auto) 4.17 (1.56-6.13) K/mm3 Lymph # (Auto) 1.23 (1.18-3.74) K/mm3 Rock # (Auto) 0.39 H (0.24-0.36) K/mm3 Eos # (Auto) 0.00 L (0.04-0.36) K/mm3 Baso # (Auto) 0.01 (0.01-0.08) K/mm3 Manual Slide Review PT 9.7 (9.7-12.0) SECONDS INR < 0.93 APTT 27.1 (21.7-31.4) SECONDS D-Dimer, Quantitative 0.41 (0.19-0.50) mg/L Puncture Site Rt radial ABG pH 7.45 (7.35-7.45) ABG pCO2 41.1 (35.0-45.0) mmHg ABG pO2 47.0 L (80.0-100.0) mmHg ABG HCO3 28.4 H (22.0-26.0) meq/L ABG O2 Saturation 81.4 L (96.0-97.0) % ABG Base Excess 4.5 H (-2-2.0) Mike Test Positive O2 Delivery Device Room air Sodium (136-145) mEq/L Potassium (3.5-5.1) mEq/L Chloride (98-107) mEq/L Carbon Dioxide (21-32) mEq/L Anion Gap (5-15) BUN (7-18) mg/dL Creatinine (0.55-1.02) mg/dL Est Cr Clr Drug Dosing mL/min Estimated GFR (MDRD) (>60) mL/min BUN/Creatinine Ratio (14-18) Glucose (70-99) mg/dL Calcium (8.5-10.1) mg/dL Magnesium (1.8-2.4) mg/dL Ferritin (8-252) ng/ml Total Bilirubin (0.2-1.0) mg/dL AST (15-37) U/L ALT (14-59) U/L Alkaline Phosphatase (46-116) U/L Lactate Dehydrogenase (81-234) U/L Troponin I (0.00-0.056) ng/mL C-Reactive Protein (<1.0) mg/dL NT-Pro-B Natriuret Pep (0-125) pg/mL Total Protein (6.4-8.2) g/dl Albumin (3.4-5.0) g/dl Globulin gm/dL Albumin/Globulin Ratio (1-2) Urine Color (Yellow) Urine Appearance (Clear) Urine pH (5.0-8.0) Ur Specific [place] (1.005-1.030) Urine Protein (Negative) Urine Glucose (UA) (Negative) Urine Ketones (Negative) Urine Occult Blood (Negative) Urine Nitrite (Negative) Urine Bilirubin (Negative) Urine Urobilinogen (0.2-1.0) Ur Leukocyte Esterase (Negative) Urine RBC (0-5) /hpf Urine WBC (0-5) /hpf Ur Epithelial Cells (0-5) /hpf Urine Bacteria (FEW) /hpf Urine Mucus (FEW) /hpf 12/25/20 12/25/20 12/25/20 Range/Units 17:50 17:50 17:50 WBC (3.98-10.04) K/mm3 RBC (3.98-5.22) M/mm3 Hgb (11.2-15.7) gm/dl Hct (34.1-44.9) % MCV (79.4-94.8) fl MCH (25.6-32.2) pg MCHC (32.2-35.5) g/dl RDW Std Deviation (36.4-46.3) fL Plt Count (182-369) K/mm3 MPV (9.4-12.3) fl Neut % (Auto) (34.0-71.1) % Lymph % (Auto) (19.3-51.7) % Rock % (Auto) (4.7-12.5) % Eos % (Auto) (0.7-5.8) Baso % (Auto) (0.1-1.2) % Neut # (Auto) (1.56-6.13) K/mm3 Lymph # (Auto) (1.18-3.74) K/mm3 Rock # (Auto) (0.24-0.36) K/mm3 Eos # (Auto) (0.04-0.36) K/mm3 Baso # (Auto) (0.01-0.08) K/mm3 Manual Slide Review PT (9.7-12.0) SECONDS INR APTT (21.7-31.4) SECONDS D-Dimer, Quantitative (0.19-0.50) mg/L Puncture Site ABG pH (7.35-7.45) ABG pCO2 (35.0-45.0) mmHg ABG pO2 (80.0-100.0) mmHg ABG HCO3 (22.0-26.0) meq/L ABG O2 Saturation (96.0-97.0) % ABG Base Excess (-2-2.0) Mike Test O2 Delivery Device Sodium 136 (136-145) mEq/L Potassium 3.0 L (3.5-5.1) mEq/L Chloride 98 (98-107) mEq/L Carbon Dioxide 30 (21-32) mEq/L Anion Gap 11.0 (5-15) BUN 9 (7-18) mg/dL Creatinine 0.8 (0.55-1.02) mg/dL Est Cr Clr Drug Dosing 83.14 mL/min Estimated GFR (MDRD) > 60 (>60) mL/min BUN/Creatinine Ratio 11.3 L (14-18) Glucose 131 H (70-99) mg/dL Calcium 7.9 L (8.5-10.1) mg/dL Magnesium 2.3 (1.8-2.4) mg/dL Ferritin 892 H (8-252) ng/ml Total Bilirubin 0.3 (0.2-1.0) mg/dL AST 49 H (15-37) U/L ALT 24 (14-59) U/L Alkaline Phosphatase 75 (46-116) U/L Lactate Dehydrogenase 424 H (81-234) U/L Troponin I < 0.017 (0.00-0.056) ng/mL C-Reactive Protein 7.4 H* (<1.0) mg/dL NT-Pro-B Natriuret Pep 25 (0-125) pg/mL Total Protein 7.6 (6.4-8.2) g/dl Albumin 2.9 L (3.4-5.0) g/dl Globulin 4.7 gm/dL Albumin/Globulin Ratio 0.6 L (1-2) Urine Color (Yellow) Urine Appearance (Clear) Urine pH (5.0-8.0) Ur Specific [place] (1.005-1.030) Urine Protein (Negative) Urine Glucose (UA) (Negative) Urine Ketones (Negative) Urine Occult Blood (Negative) Urine Nitrite (Negative) Urine Bilirubin (Negative) Urine Urobilinogen (0.2-1.0) Ur Leukocyte Esterase (Negative) Urine RBC (0-5) /hpf Urine WBC (0-5) /hpf Ur Epithelial Cells (0-5) /hpf Urine Bacteria (FEW) /hpf Urine Mucus (FEW) /hpf 12/25/20 12/26/20 12/26/20 Range/Units 23:50 05:00 05:00 WBC 6.01 (3.98-10.04) K/mm3 RBC 5.04 (3.98-5.22) M/mm3 Hgb 14.3 (11.2-15.7) gm/dl Hct 43.5 (34.1-44.9) % MCV 86.3 (79.4-94.8) fl MCH 28.4 (25.6-32.2) pg MCHC 32.9 (32.2-35.5) g/dl RDW Std Deviation 41.4 (36.4-46.3) fL Plt Count 263 (182-369) K/mm3 MPV 9.9 (9.4-12.3) fl Neut % (Auto) 78.6 H (34.0-71.1) % Lymph % (Auto) 15.8 L (19.3-51.7) % Rock % (Auto) 5.2 (4.7-12.5) % Eos % (Auto) 0 L (0.7-5.8) Baso % (Auto) 0.2 (0.1-1.2) % Neut # (Auto) 4.73 (1.56-6.13) K/mm3 Lymph # (Auto) 0.95 L (1.18-3.74) K/mm3 Rock # (Auto) 0.31 (0.24-0.36) K/mm3 Eos # (Auto) 0.00 L (0.04-0.36) K/mm3 Baso # (Auto) 0.01 (0.01-0.08) K/mm3 Manual Slide Review Normal smear PT (9.7-12.0) SECONDS INR APTT (21.7-31.4) SECONDS D-Dimer, Quantitative (0.19-0.50) mg/L Puncture Site ABG pH (7.35-7.45) ABG pCO2 (35.0-45.0) mmHg ABG pO2 (80.0-100.0) mmHg ABG HCO3 (22.0-26.0) meq/L ABG O2 Saturation (96.0-97.0) % ABG Base Excess (-2-2.0) Mike Test O2 Delivery Device Sodium 140 (136-145) mEq/L Potassium 4.0 (3.5-5.1) mEq/L Chloride 102 (98-107) mEq/L Carbon Dioxide 29 (21-32) mEq/L Anion Gap 13.0 (5-15) BUN 8 (7-18) mg/dL Creatinine 0.7 (0.55-1.02) mg/dL Est Cr Clr Drug Dosing 95.02 mL/min Estimated GFR (MDRD) > 60 (>60) mL/min BUN/Creatinine Ratio 11.4 L (14-18) Glucose 132 H (70-99) mg/dL Calcium 7.8 L (8.5-10.1) mg/dL Magnesium 2.2 (1.8-2.4) mg/dL Ferritin (8-252) ng/ml Total Bilirubin 0.2 (0.2-1.0) mg/dL AST 43 H (15-37) U/L ALT 23 (14-59) U/L Alkaline Phosphatase 68 (46-116) U/L Lactate Dehydrogenase (81-234) U/L Troponin I (0.00-0.056) ng/mL C-Reactive Protein 8.0 H* (<1.0) mg/dL NT-Pro-B Natriuret Pep (0-125) pg/mL Total Protein 7.2 (6.4-8.2) g/dl Albumin 2.6 L (3.4-5.0) g/dl Globulin 4.6 gm/dL Albumin/Globulin Ratio 0.6 L (1-2) Urine Color Light yellow (Yellow) Urine Appearance Clear (Clear) Urine pH 7.0 (5.0-8.0) Ur Specific [place] 1.020 (1.005-1.030) Urine Protein 1+ H (Negative) Urine Glucose (UA) Negative (Negative) Urine Ketones Negative (Negative) Urine Occult Blood 2+ H (Negative) Urine Nitrite Negative (Negative) Urine Bilirubin Negative (Negative) Urine Urobilinogen 0.2 (0.2-1.0) Ur Leukocyte Esterase Negative (Negative) Urine RBC 20-30 H (0-5) /hpf Urine WBC 0-5 (0-5) /hpf Ur Epithelial Cells 0-5 (0-5) /hpf Urine Bacteria Moderate H (FEW) /hpf Urine Mucus Rare (FEW) /hpf Med Orders - Current: Current Medications Acetaminophen (Acetaminophen 325 Mg Tab) 650 mg PO Q4H PRN PRN Reason: Pain (Mild 1-3)/fever Albuterol/Ipratropium (Albuterol/Ipratropium 3.0-0.5 Mg/3 Ml Neb Soln) 3 ml NEB Q4H PRN PRN Reason: Shortness Of Breath/wheezing Last Admin: 12/26/20 05:20 Dose: 3 ml Documented by: Dexamethasone (Dexamethasone 4 Mg Tab) 6 mg PO DAILY [facility] Docusate Sodium (Docusate Sodium 100 Mg Cap) 100 mg PO BID PRN PRN Reason: Constipation Enoxaparin Sodium (Enoxaparin 40 Mg/0.4 Ml Syringe) 40 mg SUBCUT DAILY [facility] Dextrose/Lactated Ringer's (Dextrose 5%-Lactated Ringers) 1,000 mls @ 250 mls/h r IV ASDIRECTED [facility] Last Admin: 12/25/20 17:44 Dose: 250 mls/hr Documented by: Sodium Chloride (Normal Saline) 1,000 mls @ 125 mls/hr IV ASDIRECTED MIRIAM Last Admin: 12/26/20 05:03 Dose: 125 mls/hr Documented by: Remdesivir 100 mg/ Sodium (Chloride) 100 mls @ 100 mls/hr IV Q24H [facility] Stop: 12/29/20 18:29 Ondansetron HCl (Ondansetron 4 Mg Tab.Dis) 4 mg PO Q4H PRN PRN Reason: nausea, able to take PO Ondansetron HCl (Ondansetron 4 Mg/2 Ml Sdv) 4 mg IV Q4H PRN PRN Reason: Nausea/Vomiting Oxycodone HCl (Oxycodone 5 Mg Tab) 5 mg PO Q4H PRN PRN Reason: Pain (moderate 4-6) Promethazine HCl/Codeine (Codeine/Promethazine 10-6.25 Mg/5 Ml Syrup 5 Ml Ud Cup) 5 ml PO ASDIRECTED PRN PRN Reason: Cough Last Admin: 12/26/20 05:03 Dose: 5 ml Documented by: Temazepam (Temazepam 15 Mg Cap) 15 mg PO BEDTIME PRN PRN Reason: Sleep Last Admin: 12/25/20 20:44 Dose: 15 mg Documented by: Discontinued Medications Dexamethasone (Dexamethasone 4 Mg/Ml 5 Ml Mdv) 6 mg IV ONETIME ONE Stop: 12/25/20 16:55 Last Admin: 12/25/20 17:43 Dose: Not Given Documented by: Remdesivir 200 mg/ Sodium (Chloride) 250 mls @ 250 mls/hr IV ONETIME ONE Stop: 12/25/20 16:52 Last Admin: 12/25/20 17:47 Dose: 250 mls/hr Documented by: Remdesivir (Remdesivir) Confirm Administered Dose 100 mls @ as directed .ROUTE .STK-MED ONE Stop: 12/25/20 17:15 Last Admin: 12/25/20 19:24 Dose: Not Given Documented by: Potassium Chloride 10 meq/ (Premix) 100 mls @ 100 mls/hr IV Q1H [facility] Stop: 12/25/20 22:59 Last Admin: 12/26/20 00:33 Dose: 100 mls/hr Documented by: Metoclopramide HCl (Metoclopramide 10 Mg/2 Ml Sdv) 7.5 mg IVPUSH ONETIME ONE Stop: 12/25/20 16:47 Last Admin: 12/25/20 17:45 Dose: Not Given Documented by: Ondansetron HCl (Ondansetron 4 Mg/2 Ml Sdv) 4 mg IVPUSH ONETIME ONE Stop: 12/25/20 18:09 Last Admin: 12/25/20 18:17 Dose: 4 mg Documented by: - Exam Quality Assessment: DVT Prophylaxis (lovenox). No: Supplemental Oxygen, Urine Catheter General: Alert, Oriented, Cooperative, Mild Distress (looks uncomfortable ) HEENT: Pupils Equal, Pupils Reactive, Mucous Membr. Moist/Index Neck: Supple, Trachea Midline Lungs: Normal Respiratory Effort, Decreased Breath Sounds Cardiovascular: Regular Rate, Regular Rhythm GI/Abdominal Exam: Normal Bowel Sounds, Soft, Non-Tender, No Distention (Female) Exam: Deferred Back Exam: Normal Inspection, Full Range of Motion Extremities: Normal Inspection, Normal Range of Motion, Non-Tender, No Pedal Edema, Normal Capillary Refill Peripheral Pulses: 3+: Radial (L), Radial (R), Dorsalis Pedis (L), Dorsalis Pedis (R) Skin: Warm, Dry, Intact Neurological: No New Focal Deficit Psy/Mental Status: Alert, Anxious - Patient Data Lab Results Last 24 hrs: Laboratory Results - last 24 hr 12/25/20 12/25/20 12/25/20 Range/Units 16:50 17:50 17:50 WBC 5.82 (3.98-10.04) K/mm3 RBC 5.34 H (3.98-5.22) M/mm3 Hgb 15.1 (11.2-15.7) gm/dl Hct 45.2 H (34.1-44.9) % MCV 84.6 (79.4-94.8) fl MCH 28.3 (25.6-32.2) pg MCHC 33.4 (32.2-35.5) g/dl RDW Std Deviation 40.9 (36.4-46.3) fL Plt Count 238 (182-369) K/mm3 MPV 9.7 (9.4-12.3) fl Neut % (Auto) 71.7 H (34.0-71.1) % Lymph % (Auto) 21.1 (19.3-51.7) % Rock % (Auto) 6.7 (4.7-12.5) % Eos % (Auto) 0 L (0.7-5.8) Baso % (Auto) 0.2 (0.1-1.2) % Neut # (Auto) 4.17 (1.56-6.13) K/mm3 Lymph # (Auto) 1.23 (1.18-3.74) K/mm3 Rock # (Auto) 0.39 H (0.24-0.36) K/mm3 Eos # (Auto) 0.00 L (0.04-0.36) K/mm3 Baso # (Auto) 0.01 (0.01-0.08) K/mm3 Manual Slide Review PT 9.7 (9.7-12.0) SECONDS INR < 0.93 APTT 27.1 (21.7-31.4) SECONDS D-Dimer, Quantitative 0.41 (0.19-0.50) mg/L Puncture Site Rt radial ABG pH 7.45 (7.35-7.45) ABG pCO2 41.1 (35.0-45.0) mmHg ABG pO2 47.0 L (80.0-100.0) mmHg ABG HCO3 28.4 H (22.0-26.0) meq/L ABG O2 Saturation 81.4 L (96.0-97.0) % ABG Base Excess 4.5 H (-2-2.0) Mike Test Positive O2 Delivery Device Room air Sodium (136-145) mEq/L Potassium (3.5-5.1) mEq/L Chloride (98-107) mEq/L Carbon Dioxide (21-32) mEq/L Anion Gap (5-15) BUN (7-18) mg/dL Creatinine (0.55-1.02) mg/dL Est Cr Clr Drug Dosing mL/min Estimated GFR (MDRD) (>60) mL/min BUN/Creatinine Ratio (14-18) Glucose (70-99) mg/dL Calcium (8.5-10.1) mg/dL Magnesium (1.8-2.4) mg/dL Ferritin (8-252) ng/ml Total Bilirubin (0.2-1.0) mg/dL AST (15-37) U/L ALT (14-59) U/L Alkaline Phosphatase (46-116) U/L Lactate Dehydrogenase (81-234) U/L Troponin I (0.00-0.056) ng/mL C-Reactive Protein (<1.0) mg/dL NT-Pro-B Natriuret Pep (0-125) pg/mL Total Protein (6.4-8.2) g/dl Albumin (3.4-5.0) g/dl Globulin gm/dL Albumin/Globulin Ratio (1-2) Urine Color (Yellow) Urine Appearance (Clear) Urine pH (5.0-8.0) Ur Specific [place] (1.005-1.030) Urine Protein (Negative) Urine Glucose (UA) (Negative) Urine Ketones (Negative) Urine Occult Blood (Negative) Urine Nitrite (Negative) Urine Bilirubin (Negative) Urine Urobilinogen (0.2-1.0) Ur Leukocyte Esterase (Negative) Urine RBC (0-5) /hpf Urine WBC (0-5) /hpf Ur Epithelial Cells (0-5) /hpf Urine Bacteria (FEW) /hpf Urine Mucus (FEW) /hpf 12/25/20 12/25/20 12/25/20 Range/Units 17:50 17:50 17:50 WBC (3.98-10.04) K/mm3 RBC (3.98-5.22) M/mm3 Hgb (11.2-15.7) gm/dl Hct (34.1-44.9) % MCV (79.4-94.8) fl MCH (25.6-32.2) pg MCHC (32.2-35.5) g/dl RDW Std Deviation (36.4-46.3) fL Plt Count (182-369) K/mm3 MPV (9.4-12.3) fl Neut % (Auto) (34.0-71.1) % Lymph % (Auto) (19.3-51.7) % Rock % (Auto) (4.7-12.5) % Eos % (Auto) (0.7-5.8) Baso % (Auto) (0.1-1.2) % Neut # (Auto) (1.56-6.13) K/mm3 Lymph # (Auto) (1.18-3.74) K/mm3 Rock # (Auto) (0.24-0.36) K/mm3 Eos # (Auto) (0.04-0.36) K/mm3 Baso # (Auto) (0.01-0.08) K/mm3 Manual Slide Review PT (9.7-12.0) SECONDS INR APTT (21.7-31.4) SECONDS D-Dimer, Quantitative (0.19-0.50) mg/L Puncture Site ABG pH (7.35-7.45) ABG pCO2 (35.0-45.0) mmHg ABG pO2 (80.0-100.0) mmHg ABG HCO3 (22.0-26.0) meq/L ABG O2 Saturation (96.0-97.0) % ABG Base Excess (-2-2.0) Mike Test O2 Delivery Device Sodium 136 (136-145) mEq/L Potassium 3.0 L (3.5-5.1) mEq/L Chloride 98 (98-107) mEq/L Carbon Dioxide 30 (21-32) mEq/L Anion Gap 11.0 (5-15) BUN 9 (7-18) mg/dL Creatinine 0.8 (0.55-1.02) mg/dL Est Cr Clr Drug Dosing 83.14 mL/min Estimated GFR (MDRD) > 60 (>60) mL/min BUN/Creatinine Ratio 11.3 L (14-18) Glucose 131 H (70-99) mg/dL Calcium 7.9 L (8.5-10.1) mg/dL Magnesium 2.3 (1.8-2.4) mg/dL Ferritin 892 H (8-252) ng/ml Total Bilirubin 0.3 (0.2-1.0) mg/dL AST 49 H (15-37) U/L ALT 24 (14-59) U/L Alkaline Phosphatase 75 (46-116) U/L Lactate Dehydrogenase 424 H (81-234) U/L Troponin I < 0.017 (0.00-0.056) ng/mL C-Reactive Protein 7.4 H* (<1.0) mg/dL NT-Pro-B Natriuret Pep 25 (0-125) pg/mL Total Protein 7.6 (6.4-8.2) g/dl Albumin 2.9 L (3.4-5.0) g/dl Globulin 4.7 gm/dL Albumin/Globulin Ratio 0.6 L (1-2) Urine Color (Yellow) Urine Appearance (Clear) Urine pH (5.0-8.0) Ur Specific [place] (1.005-1.030) Urine Protein (Negative) Urine Glucose (UA) (Negative) Urine Ketones (Negative) Urine Occult Blood (Negative) Urine Nitrite (Negative) Urine Bilirubin (Negative) Urine Urobilinogen (0.2-1.0) Ur Leukocyte Esterase (Negative) Urine RBC (0-5) /hpf Urine WBC (0-5) /hpf Ur Epithelial Cells (0-5) /hpf Urine Bacteria (FEW) /hpf Urine Mucus (FEW) /hpf 12/25/20 12/26/20 12/26/20 Range/Units 23:50 05:00 05:00 WBC 6.01 (3.98-10.04) K/mm3 RBC 5.04 (3.98-5.22) M/mm3 Hgb 14.3 (11.2-15.7) gm/dl Hct 43.5 (34.1-44.9) % MCV 86.3 (79.4-94.8) fl MCH 28.4 (25.6-32.2) pg MCHC 32.9 (32.2-35.5) g/dl RDW Std Deviation 41.4 (36.4-46.3) fL Plt Count 263 (182-369) K/mm3 MPV 9.9 (9.4-12.3) fl Neut % (Auto) 78.6 H (34.0-71.1) % Lymph % (Auto) 15.8 L (19.3-51.7) % Rock % (Auto) 5.2 (4.7-12.5) % Eos % (Auto) 0 L (0.7-5.8) Baso % (Auto) 0.2 (0.1-1.2) % Neut # (Auto) 4.73 (1.56-6.13) K/mm3 Lymph # (Auto) 0.95 L (1.18-3.74) K/mm3 Rock # (Auto) 0.31 (0.24-0.36) K/mm3 Eos # (Auto) 0.00 L (0.04-0.36) K/mm3 Baso # (Auto) 0.01 (0.01-0.08) K/mm3 Manual Slide Review Normal smear PT (9.7-12.0) SECONDS INR APTT (21.7-31.4) SECONDS D-Dimer, Quantitative (0.19-0.50) mg/L Puncture Site ABG pH (7.35-7.45) ABG pCO2 (35.0-45.0) mmHg ABG pO2 (80.0-100.0) mmHg ABG HCO3 (22.0-26.0) meq/L ABG O2 Saturation (96.0-97.0) % ABG Base Excess (-2-2.0) Mike Test O2 Delivery Device Sodium 140 (136-145) mEq/L Potassium 4.0 (3.5-5.1) mEq/L Chloride 102 (98-107) mEq/L Carbon Dioxide 29 (21-32) mEq/L Anion Gap 13.0 (5-15) BUN 8 (7-18) mg/dL Creatinine 0.7 (0.55-1.02) mg/dL Est Cr Clr Drug Dosing 95.02 mL/min Estimated GFR (MDRD) > 60 (>60) mL/min BUN/Creatinine Ratio 11.4 L (14-18) Glucose 132 H (70-99) mg/dL Calcium 7.8 L (8.5-10.1) mg/dL Magnesium 2.2 (1.8-2.4) mg/dL Ferritin (8-252) ng/ml Total Bilirubin 0.2 (0.2-1.0) mg/dL AST 43 H (15-37) U/L ALT 23 (14-59) U/L Alkaline Phosphatase 68 (46-116) U/L Lactate Dehydrogenase (81-234) U/L Troponin I (0.00-0.056) ng/mL C-Reactive Protein 8.0 H* (<1.0) mg/dL NT-Pro-B Natriuret Pep (0-125) pg/mL Total Protein 7.2 (6.4-8.2) g/dl Albumin 2.6 L (3.4-5.0) g/dl Globulin 4.6 gm/dL Albumin/Globulin Ratio 0.6 L (1-2) Urine Color Light yellow (Yellow) Urine Appearance Clear (Clear) Urine pH 7.0 (5.0-8.0) Ur Specific [place] 1.020 (1.005-1.030) Urine Protein 1+ H (Negative) Urine Glucose (UA) Negative (Negative) Urine Ketones Negative (Negative) Urine Occult Blood 2+ H (Negative) Urine Nitrite Negative (Negative) Urine Bilirubin Negative (Negative) Urine Urobilinogen 0.2 (0.2-1.0) Ur Leukocyte Esterase Negative (Negative) Urine RBC 20-30 H (0-5) /hpf Urine WBC 0-5 (0-5) /hpf Ur Epithelial Cells 0-5 (0-5) /hpf Urine Bacteria Moderate H (FEW) /hpf Urine Mucus Rare (FEW) /hpf Result Diagrams: 12/26/20 05:00 12/26/20 05:00 Sepsis Event Note - Evaluation Sepsis Screening Result: No Definite Risk - Focused Exam Vital Signs: Vital Signs Temp Pulse Resp BP Pulse Ox Pulse Ox Pulse Ox 12/26/20 05:21 94 L 12/26/20 05:02 98.1 F 77 18 116/85 95 12/26/20 01:06 96 12/25/20 23:08 99.1 F 88 18 110/69 93 L 12/25/20 20:47 94 L 12/25/20 20:13 98.8 F 96 18 138/70 93 L 12/25/20 20:05 94 L - Problem List & Annotations (1) Gastroenteritis SNOMED Code(s): 98786347 Code(s): K52.9 - NONINFECTIVE GASTROENTERITIS AND COLITIS, UNSPECIFIED Status: Acute Priority: High Current Visit: Yes (2) Pneumonia due to COVID-19 virus SNOMED Code(s): 438759577188111512 Code(s): U07.1 - COVID-19; J12.82 - PNEUMONIA DUE TO CORONAVIRUS DISEASE 2019 Status: Acute Priority: High Current Visit: Yes (3) Respiratory failure with hypoxia SNOMED Code(s): 95419723443478604 Code(s): J96.91 - RESPIRATORY FAILURE, UNSPECIFIED WITH HYPOXIA Status: Acute Priority: High Current Visit: Yes Qualifiers: Chronicity: acute Qualified Code(s): J96.01 - Acute respiratory failure with hypoxia (4) Volume depletion SNOMED Code(s): 678454909 Code(s): E86.9 - VOLUME DEPLETION, UNSPECIFIED Status: Resolved Priority: High Current Visit: Yes (5) Diarrhea SNOMED Code(s): 48031837 Code(s): R19.7 - DIARRHEA, UNSPECIFIED Status: Acute Priority: High Cu rrent Visit: Yes Qualifiers: Diarrhea type: unspecified type Qualified Code(s): R19.7 - Diarrhea, unspecified (6) Nausea and vomiting SNOMED Code(s): 72128405 Code(s): R11.2 - NAUSEA WITH VOMITING, UNSPECIFIED Status: Resolved Priority: High Current Visit: Yes Qualifiers: Vomiting type: unspecified Vomiting Intractability: unspecified Qualified Code(s): R11.2 - Nausea with vomiting, unspecified (7) Anxiety SNOMED Code(s): 69791515 Code(s): F41.9 - ANXIETY DISORDER, UNSPECIFIED Status: Acute Priority: High Current Visit: Yes (8) Dysuria SNOMED Code(s): 28270136 Code(s): R30.0 - DYSURIA Status: Acute Priority: Medium Current Visit: Yes (9) Hypokalemia SNOMED Code(s): 39234151 Code(s): E87.6 - HYPOKALEMIA Status: Resolved Priority: High Current Visit: Yes - Problem List Review Problem List Initiated/Reviewed/Updated: Yes - Assessment Assessment:: Assessment - day of admission 12/25/2020 The patient is a 35-year-old lady who had been under treatment for COVID-19 symptoms and had continued to decline. The patient has been admitted as an inpatient. She has been started on remdesivir 100 mg IV starting December 26, 2020 and she has also been placed on dexamethasone. The dexamethasone 6 mg p.o. daily will start tomorrow. The patient also has been ordered to have p.o. Zofran if tolerated or IV Zofran if needed. The patient also has been kept on her home Phenergan and codeine cough syrup. The patient's oxygen saturations will be kept around 92% and the oxygen will be titrated. Repeat laboratory studies have been ordered for the morning. The patient will have regular diet as tolerated. The patient has been encouraged to ambulate. She will have DVT prophylaxis with the use of Lovenox 40 mg subcutaneously daily. The patient should be appropriate for discharge once discontinuation of remdesivir. 12/26/2020 35-year-old female who has known COVID-19 pneumonia presented to ED on 12/25/2020 with worsening symptoms, weakness, and essentially being bedridden. She was admitted and started on remdesivir and dexamethasone. She is also had nausea, vomiting, and diarrhea. Her nausea and vomiting have resolved since admission. She continues to have diarrhea. She is on her home Phenergan and codeine cough syrup. Incentive spirometry and Acapella have been added. Respiratory therapy is consulted. She states she is still very weak. She did show some clinical signs of dehydration and was placed on IV fluids. She has improved and these will be discontinued today. Zinc supplementation has been added. She is complaining of dysuria and UA was obtained and was essentially negative. He was noted to have 1+ protein, 2+ occult blood, 20-30 RBCs and moderate bacteria. hCG was checked and was negative. She has been encouraged to prone whenever able. She is currently off of oxygen with saturations in the very low 90s. Vital signs other flores remain good. For remain hospitalized for continued COVID-19 treatment. Will ordered urine culture and scheduled pyridium for dysuria. - Plan Plan:: Gastroenteritis Pneumonia due to COVID-19 virus Respiratory failure with hypoxia Volume depletion, Resolved Diarrhea Nausea and vomiting, Resolved * Airborne/contact isolation * Dexamethasone day 06/12 * Remdesivir day 2 * IS/Acapella * RT consult * O2 as needed to keep saturations 88-95% * Continue home Phenergan/codeine cough syrup * Continuous pulse oximetry * Telemetry * Discontinue IV fluids today * Monitor daily labs * Re-check D-dimer tomorrow * PRN albuterol MDI * PRN Duonebs * Prone whenever able * No need for PT/OT at this time * Zinc supplementation * Vitamin D WNL * Antiemetics as ordered * Pain medications as ordered Hypokalemia, resolved * Supplemented * Monitor labs Anxiety * Situational * Offer encouragement * Consider Ativan PRN Dysuria * UA obtained and negative * Urine culture ordered * Daily azo scheduled TID for now Code status: Full Code PCP: None DVT prophylaxis: Lovenox Disposition: Patient mated to the medical floor on telemetry for management of COVID-19 symptoms. Likely discharge after 4 to 5 days of treatment. <Omid Anderson - Last Filed: 12/26/20 17:13> - Patient Data Vitals - Most Recent: Last Vital Signs Temp 36.7 C 12/26/20 15:48 Pulse 87 12/26/20 15:48 Resp 18 12/26/20 15:48 BP 122/68 12/26/20 15:48 Pulse Ox 93 L 12/26/20 15:48 I&O - Last 24 Hours: Intake & Output 12/26/20 12/26/20 12/26/20 06:59 14:59 22:59 Intake Total 2228 1000 Output Total 800 400 Balance 1428 600 Lab Results Last 24 Hours: Laboratory Results - last 24 hr 12/25/20 12/25/20 12/25/20 Range/Units 16:50 17:50 17:50 WBC 5.82 (3.98-10.04) K/mm3 RBC 5.34 H (3.98-5.22) M/mm3 Hgb 15.1 (11.2-15.7) gm/dl Hct 45.2 H (34.1-44.9) % MCV 84.6 (79.4-94.8) fl MCH 28.3 (25.6-32.2) pg MCHC 33.4 (32.2-35.5) g/dl RDW Std Deviation 40.9 (36.4-46.3) fL Plt Count 238 (182-369) K/mm3 MPV 9.7 (9.4-12.3) fl Neut % (Auto) 71.7 H (34.0-71.1) % Lymph % (Auto) 21.1 (19.3-51.7) % Rock % (Auto) 6.7 (4.7-12.5) % Eos % (Auto) 0 L (0.7-5.8) Baso % (Auto) 0.2 (0.1-1.2) % Neut # (Auto) 4.17 (1.56-6.13) K/mm3 Lymph # (Auto) 1.23 (1.18-3.74) K/mm3 Rock # (Auto) 0.39 H (0.24-0.36) K/mm3 Eos # (Auto) 0.00 L (0.04-0.36) K/mm3 Baso # (Auto) 0.01 (0.01-0.08) K/mm3 Manual Slide Review PT 9.7 (9.7-12.0) SECONDS INR < 0.93 APTT 27.1 (21.7-31.4) SECONDS D-Dimer, Quantitative 0.41 (0.19-0.50) mg/L Puncture Site Rt radial ABG pH 7.45 (7.35-7.45) ABG pCO2 41.1 (35.0-45.0) mmHg ABG pO2 47.0 L (80.0-100.0) mmHg ABG HCO3 28.4 H (22.0-26.0) meq/L ABG O2 Saturation 81.4 L (96.0-97.0) % ABG Base Excess 4.5 H (-2-2.0) Mike Test Positive O2 Delivery Device Room air Sodium (136-145) mEq/L Potassium (3.5-5.1) mEq/L Chloride (98-107) mEq/L Carbon Dioxide (21-32) mEq/L Anion Gap (5-15) BUN (7-18) mg/dL Creatinine (0.55-1.02) mg/dL Est Cr Clr Drug Dosing mL/min Estimated GFR (MDRD) (>60) mL/min BUN/Creatinine Ratio (14-18) Glucose (70-99) mg/dL Calcium (8.5-10.1) mg/dL Magnesium (1.8-2.4) mg/dL Ferritin (8-252) ng/ml Total Bilirubin (0.2-1.0) mg/dL AST (15-37) U/L ALT (14-59) U/L Alkaline Phosphatase (46-116) U/L Lactate Dehydrogenase (81-234) U/L Troponin I (0.00-0.056) ng/mL C-Reactive Protein (<1.0) mg/dL NT-Pro-B Natriuret Pep (0-125) pg/mL Total Protein (6.4-8.2) g/dl Albumin (3.4-5.0) g/dl Globulin gm/dL Albumin/Globulin Ratio (1-2) Vitamin D 25-Hydroxy (30.0-100.0) ng/ml Urine Color (Yellow) Urine Appearance (Clear) Urine pH (5.0-8.0) Ur Specific [place] (1.005-1.030) Urine Protein (Negative) Urine Glucose (UA) (Negative) Urine Ketones (Negative) Urine Occult Blood (Negative) Urine Nitrite (Negative) Urine Bilirubin (Negative) Urine Urobilinogen (0.2-1.0) Ur Leukocyte Esterase (Negative) Urine RBC (0-5) /hpf Urine WBC (0-5) /hpf Ur Epithelial Cells (0-5) /hpf Urine Bacteria (FEW) /hpf Urine Mucus (FEW) /hpf Urine HCG, Qual (NEGATIVE) 12/25/20 12/25/20 12/25/20 Range/Units 17:50 17:50 17:50 WBC (3.98-10.04) K/mm3 RBC (3.98-5.22) M/mm3 Hgb (11.2-15.7) gm/dl Hct (34.1-44.9) % MCV (79.4-94.8) fl MCH (25.6-32.2) pg MCHC (32.2-35.5) g/dl RDW Std Deviation (36.4-46.3) fL Plt Count (182-369) K/mm3 MPV (9.4-12.3) fl Neut % (Auto) (34.0-71.1) % Lymph % (Auto) (19.3-51.7) % Rock % (Auto) (4.7-12.5) % Eos % (Auto) (0.7-5.8) Baso % (Auto) (0.1-1.2) % Neut # (Auto) (1.56-6.13) K/mm3 Lymph # (Auto) (1.18-3.74) K/mm3 Rock # (Auto) (0.24-0.36) K/mm3 Eos # (Auto) (0.04-0.36) K/mm3 Baso # (Auto) (0.01-0.08) K/mm3 Manual Slide Review PT (9.7-12.0) SECONDS INR APTT (21.7-31.4) SECONDS D-Dimer, Quantitative (0.19-0.50) mg/L Puncture Site ABG pH (7.35-7.45) ABG pCO2 (35.0-45.0) mmHg ABG pO2 (80.0-100.0) mmHg ABG HCO3 (22.0-26.0) meq/L ABG O2 Saturation (96.0-97.0) % ABG Base Excess (-2-2.0) Mike Test O2 Delivery Device Sodium 136 (136-145) mEq/L Potassium 3.0 L (3.5-5.1) mEq/L Chloride 98 (98-107) mEq/L Carbon Dioxide 30 (21-32) mEq/L Anion Gap 11.0 (5-15) BUN 9 (7-18) mg/dL Creatinine 0.8 (0.55-1.02) mg/dL Est Cr Clr Drug Dosing 83.14 mL/min Estimated GFR (MDRD) > 60 (>60) mL/min BUN/Creatinine Ratio 11.3 L (14-18) Glucose 131 H (70-99) mg/dL Calcium 7.9 L (8.5-10.1) mg/dL Magnesium 2.3 (1.8-2.4) mg/dL Ferritin 892 H (8-252) ng/ml Total Bilirubin 0.3 (0.2-1.0) mg/dL AST 49 H (15-37) U/L ALT 24 (14-59) U/L Alkaline Phosphatase 75 (46-116) U/L Lactate Dehydrogenase 424 H (81-234) U/L Troponin I < 0.017 (0.00-0.056) ng/mL C-Reactive Protein 7.4 H* (<1.0) mg/dL NT-Pro-B Natriuret Pep 25 (0-125) pg/mL Total Protein 7.6 (6.4-8.2) g/dl Albumin 2.9 L (3.4-5.0) g/dl Globulin 4.7 gm/dL Albumin/Globulin Ratio 0.6 L (1-2) Vitamin D 25-Hydroxy (30.0-100.0) ng/ml Urine Color (Yellow) Urine Appearance (Clear) Urine pH (5.0-8.0) Ur Specific [place] (1.005-1.030) Urine Protein (Negative) Urine Glucose (UA) (Negative) Urine Ketones (Negative) Urine Occult Blood (Negative) Urine Nitrite (Negative) Urine Bilirubin (Negative) Urine Urobilinogen (0.2-1.0) Ur Leukocyte Esterase (Negative) Urine RBC (0-5) /hpf Urine WBC (0-5) /hpf Ur Epithelial Cells (0-5) /hpf Urine Bacteria (FEW) /hpf Urine Mucus (FEW) /hpf Urine HCG, Qual (NEGATIVE) 12/25/20 12/25/20 12/26/20 Range/Units 23:50 23:50 05:00 WBC 6.01 (3.98-10.04) K/mm3 RBC 5.04 (3.98-5.22) M/mm3 Hgb 14.3 (11.2-15.7) gm/dl Hct 43.5 (34.1-44.9) % MCV 86.3 (79.4-94.8) fl MCH 28.4 (25.6-32.2) pg MCHC 32.9 (32.2-35.5) g/dl RDW Std Deviation 41.4 (36.4-46.3) fL Plt Count 263 (182-369) K/mm3 MPV 9.9 (9.4-12.3) fl Neut % (Auto) 78.6 H (34.0-71.1) % Lymph % (Auto) 15.8 L (19.3-51.7) % Rock % (Auto) 5.2 (4.7-12.5) % Eos % (Auto) 0 L (0.7-5.8) Baso % (Auto) 0.2 (0.1-1.2) % Neut # (Auto) 4.73 (1.56-6.13) K/mm3 Lymph # (Auto) 0.95 L (1.18-3.74) K/mm3 Rock # (Auto) 0.31 (0.24-0.36) K/mm3 Eos # (Auto) 0.00 L (0.04-0.36) K/mm3 Baso # (Auto) 0.01 (0.01-0.08) K/mm3 Manual Slide Review Normal smear PT (9.7-12.0) SECONDS INR APTT (21.7-31.4) SECONDS D-Dimer, Quantitative (0.19-0.50) mg/L Puncture Site ABG pH (7.35-7.45) ABG pCO2 (35.0-45.0) mmHg ABG pO2 (80.0-100.0) mmHg ABG HCO3 (22.0-26.0) meq/L ABG O2 Saturation (96.0-97.0) % ABG Base Excess (-2-2.0) Mike Test O2 Delivery Device Sodium (136-145) mEq/L Potassium (3.5-5.1) mEq/L Chloride (98-107) mEq/L Carbon Dioxide (21-32) mEq/L Anion Gap (5-15) BUN (7-18) mg/dL Creatinine (0.55-1.02) mg/dL Est Cr Clr Drug Dosing mL/min Estimated GFR (MDRD) (>60) mL/min BUN/Creatinine Ratio (14-18) Glucose (70-99) mg/dL Calcium (8.5-10.1) mg/dL Magnesium (1.8-2.4) mg/dL Ferritin (8-252) ng/ml Total Bilirubin (0.2-1.0) mg/dL AST (15-37) U/L ALT (14-59) U/L Alkaline Phosphatase (46-116) U/L Lactate Dehydrogenase (81-234) U/L Troponin I (0.00-0.056) ng/mL C-Reactive Protein (<1.0) mg/dL NT-Pro-B Natriuret Pep (0-125) pg/mL Total Protein (6.4-8.2) g/dl Albumin (3.4-5.0) g/dl Globulin gm/dL Albumin/Globulin Ratio (1-2) Vitamin D 25-Hydroxy (30.0-100.0) ng/ml Urine Color Light yellow (Yellow) Urine Appearance Clear (Clear) Urine pH 7.0 (5.0-8.0) Ur Specific [place] 1.020 (1.005-1.030) Urine Protein 1+ H (Negative) Urine Glucose (UA) Negative (Negative) Urine Ketones Negative (Negative) Urine Occult Blood 2+ H (Negative) Urine Nitrite Negative (Negative) Urine Bilirubin Negative (Negative) Urine Urobilinogen 0.2 (0.2-1.0) Ur Leukocyte Esterase Negative (Negative) Urine RBC 20-30 H (0-5) /hpf Urine WBC 0-5 (0-5) /hpf Ur Epithelial Cells 0-5 (0-5) /hpf Urine Bacteria Moderate H (FEW) /hpf Urine Mucus Rare (FEW) /hpf Urine HCG, Qual Negative (NEGATIVE) 12/26/20 12/26/20 Range/Units 05:00 05:00 WBC (3.98-10.04) K/mm3 RBC (3.98-5.22) M/mm3 Hgb (11.2-15.7) gm/dl Hct (34.1-44.9) % MCV (79.4-94.8) fl MCH (25.6-32.2) pg MCHC (32.2-35.5) g/dl RDW Std Deviation (36.4-46.3) fL Plt Count (182-369) K/mm3 MPV (9.4-12.3) fl Neut % (Auto) (34.0-71.1) % Lymph % (Auto) (19.3-51.7) % Rock % (Auto) (4.7-12.5) % Eos % (Auto) (0.7-5.8) Baso % (Auto) (0.1-1.2) % Neut # (Auto) (1.56-6.13) K/mm3 Lymph # (Auto) (1.18-3.74) K/mm3 Rock # (Auto) (0.24-0.36) K/mm3 Eos # (Auto) (0.04-0.36) K/mm3 Baso # (Auto) (0.01-0.08) K/mm3 Manual Slide Review PT (9.7-12.0) SECONDS INR APTT (21.7-31.4) SECONDS D-Dimer, Quantitative (0.19-0.50) mg/L Puncture Site ABG pH (7.35-7.45) ABG pCO2 (35.0-45.0) mmHg ABG pO2 (80.0-100.0) mmHg ABG HCO3 (22.0-26.0) meq/L ABG O2 Saturation (96.0-97.0) % ABG Base Excess (-2-2.0) Mike Test O2 Delivery Device Sodium 140 (136-145) mEq/L Potassium 4.0 (3.5-5.1) mEq/L Chloride 102 (98-107) mEq/L Carbon Dioxide 29 (21-32) mEq/L Anion Gap 13.0 (5-15) BUN 8 (7-18) mg/dL Creatinine 0.7 (0.55-1.02) mg/dL Est Cr Clr Drug Dosing 95.02 mL/min Estimated GFR (MDRD) > 60 (>60) mL/min BUN/Creatinine Ratio 11.4 L (14-18) Glucose 132 H (70-99) mg/dL Calcium 7.8 L (8.5-10.1) mg/dL Magnesium 2.2 (1.8-2.4) mg/dL Ferritin (8-252) ng/ml Total Bilirubin 0.2 (0.2-1.0) mg/dL AST 43 H (15-37) U/L ALT 23 (14-59) U/L Alkaline Phosphatase 68 (46-116) U/L Lactate Dehydrogenase (81-234) U/L Troponin I (0.00-0.056) ng/mL C-Reactive Protein 8.0 H* (<1.0) mg/dL NT-Pro-B Natriuret Pep (0-125) pg/mL Total Protein 7.2 (6.4-8.2) g/dl Albumin 2.6 L (3.4-5.0) g/dl Globulin 4.6 gm/dL Albumin/Globulin Ratio 0.6 L (1-2) Vitamin D 25-Hydroxy 35.9 (30.0-100.0) ng/ml Urine Color (Yellow) Urine Appearance (Clear) Urine pH (5.0-8.0) Ur Specific [place] (1.005-1.030) Urine Protein (Negative) Urine Glucose (UA) (Negative) Urine Ketones (Negative) Urine Occult Blood (Negative) Urine Nitrite (Negative) Urine Bilirubin (Negative) Urine Urobilinogen (0.2-1.0) Ur Leukocyte Esterase (Negative) Urine RBC (0-5) /hpf Urine WBC (0-5) /hpf Ur Epithelial Cells (0-5) /hpf Urine Bacteria (FEW) /hpf Urine Mucus (FEW) /hpf Urine HCG, Qual (NEGATIVE) Med Orders - Current: Current Medications Acetaminophen (Acetaminophen 325 Mg Tab) 650 mg PO Q4H PRN PRN Reason: Pain (Mild 1-3)/fever Albuterol (Albuterol 6.7 Gm Inhaler) 0 gm INH Q4H PRN PRN Reason: sob/wheezing Last Admin: 12/26/20 12:45 Dose: 2 puff Documented by: Albuterol/Ipratropium (Albuterol/Ipratropium 3.0-0.5 Mg/3 Ml Neb Soln) 3 ml NEB Q4H PRN PRN Reason: Shortness Of Breath/wheezing Last Admin: 12/26/20 05:20 Dose: 3 ml Documented by: Dexamethasone (Dexamethasone 4 Mg Tab) 6 mg PO DAILY [facility] Last Admin: 12/26/20 08:09 Dose: 6 mg Documented by: Docusate Sodium (Docusate Sodium 100 Mg Cap) 100 mg PO BID PRN PRN Reason: Constipation Enoxaparin Sodium (Enoxaparin 40 Mg/0.4 Ml Syringe) 40 mg SUBCUT DAILY [facility] Last Admin: 12/26/20 08:10 Dose: 40 mg Documented by: Remdesivir 100 mg/ Sodium (Chloride) 100 mls @ 100 mls/hr IV Q24H [facility] Stop: 12/29/20 18:29 Ondansetron HCl (Ondansetron 4 Mg Tab.Dis) 4 mg PO Q4H PRN PRN Reason: nausea, able to take PO Ondansetron HCl (Ondansetron 4 Mg/2 Ml Sdv) 4 mg IV Q4H PRN PRN Reason: Nausea/Vomiting Oxycodone HCl (Oxycodone 5 Mg Tab) 5 mg PO Q4H PRN PRN Reason: Pain (moderate 4-6) Phenazopyridine HCl (Phenazopyridine 95 Mg Tab) 95 mg PO TIDPC [facility] Last Admin: 12/26/20 14:01 Dose: 95 mg Documented by: Promethazine HCl/Codeine (Codeine/Promethazine 10-6.25 Mg/5 Ml Syrup 5 Ml Ud Cup ) 5 ml PO Q4H PRN PRN Reason: Cough Temazepam (Temazepam 15 Mg Cap) 15 mg PO BEDTIME PRN PRN Reason: Sleep Last Admin: 12/25/20 20:44 Dose: 15 mg Documented by: Zinc Sulfate (Zinc Sulfate 220 Mg Cap) 220 mg PO DAILY [facility] Last Admin: 12/26/20 11:09 Dose: 220 mg Documented by: Discontinued Medications Albuterol (Albuterol 6.7 Gm Inhaler) Confirm Administered Dose 6.7 gm INH .STK- MED ONE Stop: 12/26/20 08:37 Last Admin: 12/26/20 08:41 Dose: Not Given Documented by: Dexamethasone (Dexamethasone 4 Mg/Ml 5 Ml Mdv) 6 mg IV ONETIME ONE Stop: 12/25/20 16:55 Last Admin: 12/25/20 17:43 Dose: Not Given Documented by: Dextrose/Lactated Ringer's (Dextrose 5%-Lactated Ringers) 1,000 mls @ 250 mls/hr IV ASDIRECTED [facility] Last Admin: 12/25/20 17:44 Dose: 250 mls/hr Documented by: Remdesivir 200 mg/ Sodium (Chloride) 250 mls @ 250 mls/hr IV ONETIME ONE Stop: 12/25/20 16:52 Last Admin: 12/25/20 17:47 Dose: 250 mls/hr Documented by: Remdesivir (Remdesivir) Confirm Administered Dose 100 mls @ as directed .ROUTE .STK-MED ONE Stop: 12/25/20 17:15 Last Admin: 12/25/20 19:24 Dose: Not Given Documented by: Sodium Chloride (Normal Saline) 1,000 mls @ 125 mls/hr IV ASDIRECTED [facility] Last Admin: 12/26/20 05:03 Dose: 125 mls/hr Documented by: Potassium Chloride 10 meq/ (Premix) 100 mls @ 100 mls/hr IV Q1H [facility] Stop: 12/25/20 22:59 Last Admin: 12/26/20 00:33 Dose: 100 mls/hr Documented by: Metoclopramide HCl (Metoclopramide 10 Mg/2 Ml Sdv) 7.5 mg IVPUSH ONETIME ONE Stop: 12/25/20 16:47 Last Admin: 12/25/20 17:45 Dose: Not Given Documented by: Ondansetron HCl (Ondansetron 4 Mg/2 Ml Sdv) 4 mg IVPUSH ONETIME ONE Stop: 12/25/20 18:09 Last Admin: 12/25/20 18:17 Dose: 4 mg Documented by: Promethazine HCl/Codeine (Codeine/Promethazine 10-6.25 Mg/5 Ml Syrup 5 Ml Ud Cup) 5 ml PO ASDIRECTED PRN PRN Reason: Cough Last Admin: 12/26/20 08:10 Dose: 5 ml Documented by: - Patient Data Lab Results Last 24 hrs: Laboratory Results - last 24 hr 12/25/20 12/25/20 12/25/20 Range/Units 16:50 17:50 17:50 WBC 5.82 (3.98-10.04) K/mm3 RBC 5.34 H (3.98-5.22) M/mm3 Hgb 15.1 (11.2-15.7) gm/dl Hct 45.2 H (34.1-44.9) % MCV 84.6 (79.4-94.8) fl MCH 28.3 (25.6-32.2) pg MCHC 33.4 (32.2-35.5) g/dl RDW Std Deviation 40.9 (36.4-46.3) fL Plt Count 238 (182-369) K/mm3 MPV 9.7 (9.4-12.3) fl Neut % (Auto) 71.7 H (34.0-71.1) % Lymph % (Auto) 21.1 (19.3-51.7) % Rock % (Auto) 6.7 (4.7-12.5) % Eos % (Auto) 0 L (0.7-5.8) Baso % (Auto) 0.2 (0.1-1.2) % Neut # (Auto) 4.17 (1.56-6.13) K/mm3 Lymph # (Auto) 1.23 (1.18-3.74) K/mm3 Rock # (Auto) 0.39 H (0.24-0.36) K/mm3 Eos # (Auto) 0.00 L (0.04-0.36) K/mm3 Baso # (Auto) 0.01 (0.01-0.08) K/mm3 Manual Slide Review PT 9.7 (9.7-12.0) SECONDS INR < 0.93 APTT 27.1 (21.7-31.4) SECONDS D-Dimer, Quantitative 0.41 (0.19-0.50) mg/L Puncture Site Rt radial ABG pH 7.45 (7.35-7.45) ABG pCO2 41.1 (35.0-45.0) mmHg ABG pO2 47.0 L (80.0-100.0) mmHg ABG HCO3 28.4 H (22.0-26.0) meq/L ABG O2 Saturation 81.4 L (96.0-97.0) % ABG Base Excess 4.5 H (-2-2.0) Mike Test Positive O2 Delivery Device Room air Sodium (136-145) mEq/L Potassium (3.5-5.1) mEq/L Chloride (98-107) mEq/L Carbon Dioxide (21-32) mEq/L Anion Gap (5-15) BUN (7-18) mg/dL Creatinine (0.55-1.02) mg/dL Est Cr Clr Drug Dosing mL/min Estimated GFR (MDRD) (>60) mL/min BUN/Creatinine Ratio (14-18) Glucose (70-99) mg/dL Calcium (8.5-10.1) mg/dL Magnesium (1.8-2.4) mg/dL Ferritin (8-252) ng/ml Total Bilirubin (0.2-1.0) mg/dL AST (15-37) U/L ALT (14-59) U/L Alkaline Phosphatase (46-116) U/L Lactate Dehydrogenase (81-234) U/L Troponin I (0.00-0.056) ng/mL C-Reactive Protein (<1.0) mg/dL NT-Pro-B Natriuret Pep (0-125) pg/mL Total Protein (6.4-8.2) g/dl Albumin (3.4-5.0) g/dl Globulin gm/dL Albumin/Globulin Ratio (1-2) Vitamin D 25-Hydroxy (30.0-100.0) ng/ml Urine Color (Yellow) Urine Appearance (Clear) Urine pH (5.0-8.0) Ur Specific [place] (1.005-1.030) Urine Protein (Negative) Urine Glucose (UA) (Negative) Urine Ketones (Negative) Urine Occult Blood (Negative) Urine Nitrite (Negative) Urine Bilirubin (Negative) Urine Urobilinogen (0.2-1.0) Ur Leukocyte Esterase (Negative) Urine RBC (0-5) /hpf Urine WBC (0-5) /hpf Ur Epithelial Cells (0-5) /hpf Urine Bacteria (FEW) /hpf Urine Mucus (FEW) /hpf Urine HCG, Qual (NEGATIVE) 12/25/20 12/25/20 12/25/20 Range/Units 17:50 17:50 17:50 WBC (3.98-10.04) K/mm3 RBC (3.98-5.22) M/mm3 Hgb (11.2-15.7) gm/dl Hct (34.1-44.9) % MCV (79.4-94.8) fl MCH (25.6-32.2) pg MCHC (32.2-35.5) g/dl RDW Std Deviation (36.4-46.3) fL Plt Count (182-369) K/mm3 MPV (9.4-12.3) fl Neut % (Auto) (34.0-71.1) % Lymph % (Auto) (19.3-51.7) % Rock % (Auto) (4.7-12.5) % Eos % (Auto) (0.7-5.8) Baso % (Auto) (0.1-1.2) % Neut # (Auto) (1.56-6.13) K/mm3 Lymph # (Auto) (1.18-3.74) K/mm3 Rock # (Auto) (0.24-0.36) K/mm3 Eos # (Auto) (0.04-0.36) K/mm3 Baso # (Auto) (0.01-0.08) K/mm3 Manual Slide Review PT (9.7-12.0) SECONDS INR APTT (21.7-31.4) SECONDS D-Dimer, Quantitative (0.19-0.50) mg/L Puncture Site ABG pH (7.35-7.45) ABG pCO2 (35.0-45.0) mmHg ABG pO2 (80.0-100.0) mmHg ABG HCO3 (22.0-26.0) meq/L ABG O2 Saturation (96.0-97.0) % ABG Base Excess (-2-2.0) Mike Test O2 Delivery Device Sodium 136 (136-145) mEq/L Potassium 3.0 L (3.5-5.1) mEq/L Chloride 98 (98-107) mEq/L Carbon Dioxide 30 (21-32) mEq/L Anion Gap 11.0 (5-15) BUN 9 (7-18) mg/dL Creatinine 0.8 (0.55-1.02) mg/dL Est Cr Clr Drug Dosing 83.14 mL/min Estimated GFR (MDRD) > 60 (>60) mL/min BUN/Creatinine Ratio 11.3 L (14-18) Glucose 131 H (70-99) mg/dL Calcium 7.9 L (8.5-10.1) mg/dL Magnesium 2.3 (1.8-2.4) mg/dL Ferritin 892 H (8-252) ng/ml Total Bilirubin 0.3 (0.2-1.0) mg/dL AST 49 H (15-37) U/L ALT 24 (14-59) U/L Alkaline Phosphatase 75 (46-116) U/L Lactate Dehydrogenase 424 H (81-234) U/L Troponin I < 0.017 (0.00-0.056) ng/mL C-Reactive Protein 7.4 H* (<1.0) mg/dL NT-Pro-B Natriuret Pep 25 (0-125) pg/mL Total Protein 7.6 (6.4-8.2) g/dl Albumin 2.9 L (3.4-5.0) g/dl Globulin 4.7 gm/dL Albumin/Globulin Ratio 0.6 L (1-2) Vitamin D 25-Hydroxy (30.0-100.0) ng/ml Urine Color (Yellow) Urine Appearance (Clear) Urine pH (5.0-8.0) Ur Specific [place] (1.005-1.030) Urine Protein (Negative) Urine Glucose (UA) (Negative) Urine Ketones (Negative) Urine Occult Blood (Negative) Urine Nitrite (Negative) Urine Bilirubin (Negative) Urine Urobilinogen (0.2-1.0) Ur Leukocyte Esterase (Negative) Urine RBC (0-5) /hpf Urine WBC (0-5) /hpf Ur Epithelial Cells (0-5) /hpf Urine Bacteria (FEW) /hpf Urine Mucus (FEW) /hpf Urine HCG, Qual (NEGATIVE) 12/25/20 12/25/20 12/26/20 Range/Units 23:50 23:50 05:00 WBC 6.01 (3.98-10.04) K/mm3 RBC 5.04 (3.98-5.22) M/mm3 Hgb 14.3 (11.2-15.7) gm/dl Hct 43.5 (34.1-44.9) % MCV 86.3 (79.4-94.8) fl MCH 28.4 (25.6-32.2) pg MCHC 32.9 (32.2-35.5) g/dl RDW Std Deviation 41.4 (36.4-46.3) fL Plt Count 263 (182-369) K/mm3 MPV 9.9 (9.4-12.3) fl Neut % (Auto) 78.6 H (34.0-71.1) % Lymph % (Auto) 15.8 L (19.3-51.7) % Rock % (Auto) 5.2 (4.7-12.5) % Eos % (Auto) 0 L (0.7-5.8) Baso % (Auto) 0.2 (0.1-1.2) % Neut # (Auto) 4.73 (1.56-6.13) K/mm3 Lymph # (Auto) 0.95 L (1.18-3.74) K/mm3 Rock # (Auto) 0.31 (0.24-0.36) K/mm3 Eos # (Auto) 0.00 L (0.04-0.36) K/mm3 Baso # (Auto) 0.01 (0.01-0.08) K/mm3 Manual Slide Review Normal smear PT (9.7-12.0) SECONDS INR APTT (21.7-31.4) SECONDS D-Dimer, Quantitative (0.19-0.50) mg/L Puncture Site ABG pH (7.35-7.45) ABG pCO2 (35.0-45.0) mmHg ABG pO2 (80.0-100.0) mmHg ABG HCO3 (22.0-26.0) meq/L ABG O2 Saturation (96.0-97.0) % ABG Base Excess (-2-2.0) Mike Test O2 Delivery Device Sodium (136-145) mEq/L Potassium (3.5-5.1) mEq/L Chloride (98-107) mEq/L Carbon Dioxide (21-32) mEq/L Anion Gap (5-15) BUN (7-18) mg/dL Creatinine (0.55-1.02) mg/dL Est Cr Clr Drug Dosing mL/min Estimated GFR (MDRD) (>60) mL/min BUN/Creatinine Ratio (14-18) Glucose (70-99) mg/dL Calcium (8.5-10.1) mg/dL Magnesium (1.8-2.4) mg/dL Ferritin (8-252) ng/ml Total Bilirubin (0.2-1.0) mg/dL AST (15-37) U/L ALT (14-59) U/L Alkaline Phosphatase (46-116) U/L Lactate Dehydrogenase (81-234) U/L Troponin I (0.00-0.056) ng/mL C-Reactive Protein (<1.0) mg/dL NT-Pro-B Natriuret Pep (0-125) pg/mL Total Protein (6.4-8.2) g/dl Albumin (3.4-5.0) g/dl Globulin gm/dL Albumin/Globulin Ratio (1-2) Vitamin D 25-Hydroxy (30.0-100.0) ng/ml Urine Color Light yellow (Yellow) Urine Appearance Clear (Clear) Urine pH 7.0 (5.0-8.0) Ur Specific [place] 1.020 (1.005-1.030) Urine Protein 1+ H (Negative) Urine Glucose (UA) Negative (Negative) Urine Ketones Negative (Negative) Urine Occult Blood 2+ H (Negative) Urine Nitrite Negative (Negative) Urine Bilirubin Negative (Negative) Urine Urobilinogen 0.2 (0.2-1.0) Ur Leukocyte Esterase Negative (Negative) Urine RBC 20-30 H (0-5) /hpf Urine WBC 0-5 (0-5) /hpf Ur Epithelial Cells 0-5 (0-5) /hpf Urine Bacteria Moderate H (FEW) /hpf Urine Mucus Rare (FEW) /hpf Urine HCG, Qual Negative (NEGATIVE) 12/26/20 12/26/20 Range/Units 05:00 05:00 WBC (3.98-10.04) K/mm3 RBC (3.98-5.22) M/mm3 Hgb (11.2-15.7) gm/dl Hct (34.1-44.9) % MCV (79.4-94.8) fl MCH (25.6-32.2) pg MCHC (32.2-35.5) g/dl RDW Std Deviation (36.4-46.3) fL Plt Count (182-369) K/mm3 MPV (9.4-12.3) fl Neut % (Auto) (34.0-71.1) % Lymph % (Auto) (19.3-51.7) % Rock % (Auto) (4.7-12.5) % Eos % (Auto) (0.7-5.8) Baso % (Auto) (0.1-1.2) % Neut # (Auto) (1.56-6.13) K/mm3 Lymph # (Auto) (1.18-3.74) K/mm3 Rock # (Auto) (0.24-0.36) K/mm3 Eos # (Auto) (0.04-0.36) K/mm3 Baso # (Auto) (0.01-0.08) K/mm3 Manual Slide Review PT (9.7-12.0) SECONDS INR APTT (21.7-31.4) SECONDS D-Dimer, Quantitative (0.19-0.50) mg/L Puncture Site ABG pH (7.35-7.45) ABG pCO2 (35.0-45.0) mmHg ABG pO2 (80.0-100.0) mmHg ABG HCO3 (22.0-26.0) meq/L ABG O2 Saturation (96.0-97.0) % ABG Base Excess (-2-2.0) Mike Test O2 Delivery Device Sodium 140 (136-145) mEq/L Potassium 4.0 (3.5-5.1) mEq/L Chloride 102 (98-107) mEq/L Carbon Dioxide 29 (21-32) mEq/L Anion Gap 13.0 (5-15) BUN 8 (7-18) mg/dL Creatinine 0.7 (0.55-1.02) mg/dL Est Cr Clr Drug Dosing 95.02 mL/min Estimated GFR (MDRD) > 60 (>60) mL/min BUN/Creatinine Ratio 11.4 L (14-18) Glucose 132 H (70-99) mg/dL Calcium 7.8 L (8.5-10.1) mg/dL Magnesium 2.2 (1.8-2.4) mg/dL Ferritin (8-252) ng/ml Total Bilirubin 0.2 (0.2-1.0) mg/dL AST 43 H (15-37) U/L ALT 23 (14-59) U/L Alkaline Phosphatase 68 (46-116) U/L Lactate Dehydrogenase (81-234) U/L Troponin I (0.00-0.056) ng/mL C-Reactive Protein 8.0 H* (<1.0) mg/dL NT-Pro-B Natriuret Pep (0-125) pg/mL Total Protein 7.2 (6.4-8.2) g/dl Albumin 2.6 L (3.4-5.0) g/dl Globulin 4.6 gm/dL Albumin/Globulin Ratio 0.6 L (1-2) Vitamin D 25-Hydroxy 35.9 (30.0-100.0) ng/ml Urine Color (Yellow) Urine Appearance (Clear) Urine pH (5.0-8.0) Ur Specific [place] (1.005-1.030) Urine Protein (Negative) Urine Glucose (UA) (Negative) Urine Ketones (Negative) Urine Occult Blood (Negative) Urine Nitrite (Negative) Urine Bilirubin (Negative) Urine Urobilinogen (0.2-1.0) Ur Leukocyte Esterase (Negative) Urine RBC (0-5) /hpf Urine WBC (0-5) /hpf Ur Epithelial Cells (0-5) /hpf Urine Bacteria (FEW) /hpf Urine Mucus (FEW) /hpf Urine HCG, Qual (NEGATIVE) Result Diagrams: 12/26/20 05:00 12/26/20 05:00 Sepsis Event Note - Focused Exam Vital Signs: Vital Signs Temp Pulse Resp BP Pulse Ox Pulse Ox Pulse Ox 12/26/20 15:48 36.7 C 87 18 122/68 93 L 12/26/20 12:46 93 L 12/26/20 11:46 36.8 C 81 16 117/71 94 L 12/26/20 08:41 93 L 12/26/20 07:50 36.7 C 90 18 122/63 94 L 12/26/20 05:21 94 L - Problem List & Annotations (1) Pneumonia due to COVID-19 virus SNOMED Code(s): 093855526960976435 Code(s): U07.1 - COVID-19; J12.82 - PNEUMONIA DUE TO CORONAVIRUS DISEASE 2019 Status: Acute Priority: High Current Visit: Yes (2) Respiratory failure with hypoxia SNOMED Code(s): 68417177265654349 Code(s): J96.91 - RESPIRATORY FAILURE, UNSPECIFIED WITH HYPOXIA Status: Acute Priority: High Current Visit: Yes Qualifiers: Chronicity: acute Qualified Code(s): J96.01 - Acute respiratory failure with hypoxia (3) Volume depletion SNOMED Code(s): 351464725 Code(s): E86.9 - VOLUME DEPLETION, UNSPECIFIED Status: Resolved Priority: High Current Visit: Yes (4) Gastroenteritis SNOMED Code(s): 61220977 Code(s): K52.9 - NONINFECTIVE GASTROENTERITIS AND COLITIS, UNSPECIFIED Status: Acute Priority: High Current Visit: Yes - My Orders Last 24 Hours: My Active Orders 12/25/20 17:43 Patient Status [ADT] Routine Oxygen Therapy [RC] PRN Up ad Katie [RC] BID VTE/DVT Education [RC] DAILY Vital Signs [RC] Q4HR Acetaminophen [TylenoL] 650 mg PO Q4H PRN Albuterol/Ipratropium [DuoNeb 3.0-0.5 MG/3 ML] 3 ml NEB Q4H PRN Docusate Sodium [Colace] 100 mg PO BID PRN Ondansetron [Zofran ODT] 4 mg PO Q4H PRN Ondansetron [Zofran] 4 mg IV Q4H PRN Temazepam [Restoril] 15 mg PO BEDTIME PRN oxyCODONE 5 mg PO Q4H PRN Resuscitation Status Routine 12/25/20 17:45 Cardiac Monitoring [RC] CONTINUOUS 12/25/20 17:48 RT Aerosol Therapy [RC] ASDIRECTED 12/26/20 08:32 Albuterol [Proventil HFA] See Dose Instructions INH Q4H PRN 12/26/20 09:00 Enoxaparin [Lovenox] 40 mg SUBCUT DAILY dexAMETHasone 6 mg PO DAILY 12/26/20 09:30 Codeine/Promethazine [Phenergan with Codeine] 5 ml PO Q4H PRN 12/26/20 Lunch Regular Diet [DIET] 12/26/20 17:30 Remdesivir 100 mg Sodium Chloride 0.9% [Normal Saline] 100 ml IV Q24H - Free Text/Narrative Note: I have seen and examined the patient independently of Nathaniel Bella PA-C and have discussed the case with him. I have reviewed and agree with the orders and plan of care outlined by him. Please see orders.
[2020-12-26] MEDS: Dexamethasone 4 MG Tab PO SCH (08:09)
[2020-12-26] MEDS: Enoxaparin 40 MG/0.4 ML Syringe SUBCUT SCH (08:10)
[2020-12-26] MEDS ORDERED: Albuterol 6.7 GM Inhaler INH ONE (08:36)
[2020-12-26] MEDS: Albuterol 6.7 GM Inhaler INH PRN ×2 (08:40→12:45)
[2020-12-26] MEDS: Zinc Sulfate 220 MG Cap PO SCH (11:09)
[2020-12-26] MEDS: Phenazopyridine 95 MG Tab PO SCH ×2 (14:01→18:02)
[2020-12-26] MEDS: REMDESIVIR 100 MG in Sodium Chloride 0.9% 100 ML IV SCH (18:02)
[2020-12-26] MEDS: Temazepam 15 MG Cap PO PRN (20:18)
--- NOTE | 2020-12-27 07:14 | PCM.PN ---
- Patient Data Vitals - Most Recent: Last Vital Signs Temp 36.6 C 12/27/20 03:48 Pulse 68 12/27/20 03:48 Resp 22 H 12/27/20 03:48 BP 128/63 12/27/20 03:48 Pulse Ox 93 L 12/27/20 03:48 Weight - Most Recent: 84.822 kg I&O - Last 24 Hours: Intake & Output 12/26/20 12/27/20 12/27/20 22:59 06:59 14:59 Intake Total 1000 Output Total 400 Balance 600 Lab Results Last 24 Hours: Laboratory Results - last 24 hr 12/25/20 12/26/20 12/26/20 Range/Units 23:50 05:00 05:00 Manual Slide Review Normal smear Vitamin D 25-Hydroxy 35.9 (30.0-100.0) ng/ml Urine HCG, Qual Negative (NEGATIVE) Med Orders - Current: Current Medications Acetaminophen (Acetaminophen 325 Mg Tab) 650 mg PO Q4H PRN PRN Reason: Pain (Mild 1-3)/fever Albuterol (Albuterol 6.7 Gm Inhaler) 0 gm INH Q4H PRN PRN Reason: sob/wheezing Last Admin: 12/26/20 12:45 Dose: 2 puff Documented by: Albuterol/Ipratropium (Albuterol/Ipratropium 3.0-0.5 Mg/3 Ml Neb Soln) 3 ml NEB Q4H PRN PRN Reason: Shortness Of Breath/wheezing Last Admin: 12/26/20 05:20 Dose: 3 ml Documented by: Dexamethasone (Dexamethasone 4 Mg Tab) 6 mg PO DAILY [facility] Last Admin: 12/26/20 08:09 Dose: 6 mg Documented by: Docusate Sodium (Docusate Sodium 100 Mg Cap) 100 mg PO BID PRN PRN Reason: Constipation Enoxaparin Sodium (Enoxaparin 40 Mg/0.4 Ml Syringe) 40 mg SUBCUT DAILY [facility] Last Admin: 12/26/20 08:10 Dose: 40 mg Documented by: Remdesivir 100 mg/ Sodium (Chloride) 100 mls @ 100 mls/hr IV Q24H [facility] Stop: 12/29/20 18:29 Last Admin: 12/26/20 18:02 Dose: 100 mls/hr Documented by: Ondansetron HCl (Ondansetron 4 Mg Tab.Dis) 4 mg PO Q4H PRN PRN Reason: nausea, able to take PO Last Admin: 12/27/20 06:33 Dose: 4 mg Documented by: Ondansetron HCl (Ondansetron 4 Mg/2 Ml Sdv) 4 mg IV Q4H PRN PRN Reason: Nausea/Vomiting Oxycodone HCl (Oxycodone 5 Mg Tab) 5 mg PO Q4H PRN PRN Reason: Pain (moderate 4-6) Phenazopyridine HCl (Phenazopyridine 95 Mg Tab) 95 mg PO TIDPC [facility] Last Admin: 12/26/20 18:02 Dose: 95 mg Documented by: Promethazine HCl/Codeine (Codeine/Promethazine 10-6.25 Mg/5 Ml Syrup 5 Ml Ud Cup) 5 ml PO Q4H PRN PRN Reason: Cough Last Admin: 12/26/20 20:18 Dose: 5 ml Documented by: Temazepam (Temazepam 15 Mg Cap) 15 mg PO BEDTIME PRN PRN Reason: Sleep Last Admin: 12/26/20 20:18 Dose: 15 mg Documented by: Zinc Sulfate (Zinc Sulfate 220 Mg Cap) 220 mg PO DAILY [facility] Last Admin: 12/26/20 11:09 Dose: 220 mg Documented by: Discontinued Medications Albuterol (Albuterol 6.7 Gm Inhaler) Confirm Administered Dose 6.7 gm INH .STK- MED ONE Stop: 12/26/20 08:37 Last Admin: 12/26/20 08:41 Dose: Not Given Documented by: Dexamethasone (Dexamethasone 4 Mg/Ml 5 Ml Mdv) 6 mg IV ONETIME ONE Stop: 12/25/20 16:55 Last Admin: 12/25/20 17:43 Dose: Not Given Documented by: Dextrose/Lactated Ringer's (Dextrose 5%-Lactated Ringers) 1,000 mls @ 250 mls/hr IV ASDIRECTED [facility] Last Admin: 12/25/20 17:44 Dose: 250 mls/hr Documented by: Remdesivir 200 mg/ Sodium (Chloride) 250 mls @ 250 mls/hr IV ONETIME ONE Stop: 12/25/20 16:52 Last Admin: 12/25/20 17:47 Dose: 250 mls/hr Documented by: Remdesivir (Remdesivir) Confirm Administered Dose 100 mls @ as directed .ROUTE .STK-MED ONE Stop: 12/25/20 17:15 Last Admin: 12/25/20 19:24 Dose: Not Given Documented by: Sodium Chloride (Normal Saline) 1,000 mls @ 125 mls/hr IV ASDIRECTED [facility] Last Admin: 12/26/20 05:03 Dose: 125 mls/hr Documented by: Potassium Chloride 10 meq/ (Premix) 100 mls @ 100 mls/hr IV Q1H [facility] Stop: 12/25/20 22:59 Last Admin: 12/26/20 00:33 Dose: 100 mls/hr Documented by: Metoclopramide HCl (Metoclopramide 10 Mg/2 Ml Sdv) 7.5 mg IVPUSH ONETIME ONE Stop: 12/25/20 16:47 Last Admin: 12/25/20 17:45 Dose: Not Given Documented by: Ondansetron HCl (Ondansetron 4 Mg/2 Ml Sdv) 4 mg IVPUSH ONETIME ONE Stop: 12/25/20 18:09 Last Admin: 12/25/20 18:17 Dose: 4 mg Documented by: Promethazine HCl/Codeine (Codeine/Promethazine 10-6.25 Mg/5 Ml Syrup 5 Ml Ud Cup) 5 ml PO ASDIRECTED PRN PRN Reason: Cough Last Admin: 12/26/20 08:10 Dose: 5 ml Documented by: - Patient Data Lab Results Last 24 hrs: Laboratory Results - last 24 hr 12/25/20 12/26/20 12/26/20 Range/Units 23:50 05:00 05:00 Manual Slide Review Normal smear Vitamin D 25-Hydroxy 35.9 (30.0-100.0) ng/ml Urine HCG, Qual Negative (NEGATIVE) Result Diagrams: 12/26/20 05:00 12/26/20 05:00 Sepsis Event Note - Evaluation Sepsis Screening Result: No Definite Risk - Focused Exam Vital Signs: Vital Signs Temp Pulse Resp BP Pulse Ox Pulse Ox 12/27/20 03:48 36.6 C 68 22 H 128/63 93 L 12/26/20 22:56 36.8 C 70 18 94/60 92 L 12/26/20 20:41 92 L 12/26/20 20:17 36.8 C 76 18 132/101 H 93 L - Problem List & Annotations (1) Pneumonia due to COVID-19 virus SNOMED Code(s): 094941088570446501 Code(s): U07.1 - COVID-19; J12.82 - PNEUMONIA DUE TO CORONAVIRUS DISEASE 2018 Status: Acute Priority: High Current Visit: Yes (2) Respiratory failure with hypoxia SNOMED Code(s): 22897045160080969 Code(s): J96.91 - RESPIRATORY FAILURE, UNSPECIFIED WITH HYPOXIA Status: Acute Priority: High Current Visit: Yes Qualifiers: Chronicity: acute Qualified Code(s): J96.01 - Acute respiratory failure with hypoxia (3) Volume depletion SNOMED Code(s): 366243344 Code(s): E86.9 - VOLUME DEPLETION, UNSPECIFIED Status: Resolved Priority: High Current Visit: Yes (4) Gastroenteritis SNOMED Code(s): 14035493 Code(s): K52.9 - NONINFECTIVE GASTROENTERITIS AND COLITIS, UNSPECIFIED Status: Acute Priority: High Current Visit: Yes - My Orders Last 24 Hours: My Active Orders 12/26/20 08:32 Albuterol [Proventil HFA] See Dose Instructions INH Q4H PRN 12/26/20 09:00 Enoxaparin [Lovenox] 40 mg SUBCUT DAILY dexAMETHasone 6 mg PO DAILY 12/26/20 09:30 Codeine/Promethazine [Phenergan with Codeine] 5 ml PO Q4H PRN 12/26/20 Lunch Regular Diet [DIET] 12/26/20 17:30 Remdesivir 100 mg Sodium Chloride 0.9% [Normal Saline] 100 ml IV Q24H - Assessment Assessment:: Assessment - day of admission 12/25/2020 The patient is a 35-year-old lady who had been under treatment for COVID-19 symptoms and had continued to decline. The patient has been admitted as an inpatient. She has been started on remdesivir 100 mg IV starting December 26, 2020 and she has also been placed on dexamethasone. The dexamethasone 6 mg p.o. daily will start tomorrow. The patient also has been ordered to have p.o. Zofran if tolerated or IV Zofran if needed. The patient also has been kept on her home Phenergan and codeine cough syrup. The patient's oxygen saturations will be kept around 92% and the oxygen will be titrated. Repeat laboratory studies have been ordered for the morning. The patient will have regular diet as tolerated. The patient has been encouraged to ambulate. She will have DVT prophylaxis with the use of Lovenox 40 mg subcutaneously daily. The patient should be appropriate for discharge once discontinuation of remdesivir. 12/26/2020 35-year-old female who has known COVID-19 pneumonia presented to ED on 12/25/2020 with worsening symptoms, weakness, and essentially being bedridden. She was admitted and started on remdesivir and dexamethasone. She is also had nausea, vomiting, and diarrhea. Her nausea and vomiting have resolved since admission. She continues to have diarrhea. She is on her home Phenergan and codeine cough syrup. Incentive spirometry and Acapella have been added. Respiratory therapy is consulted. She states she is still very weak. She did show some clinical signs of dehydration and was placed on IV fluids. She has improved and these will be discontinued today. Zinc supplementation has been added. She is complaining of dysuria and UA was obtained and was essentially negative. He was noted to have 1+ protein, 2+ occult blood, 20-30 RBCs and moderate bacteria. hCG was checked and was negative. She has been encouraged to prone whenever able. She is currently off of oxygen with saturations in the very low 90s. Vital signs other flores remain good. For remain hospitalized for continued COVID-19 treatment. Will ordered urine culture and scheduled pyridium for dysuria. - Plan Plan:: Gastroenteritis Pneumonia due to COVID-19 virus Respiratory failure with hypoxia Volume depletion, Resolved Diarrhea Nausea and vomiting, Resolved * Airborne/contact isolation * Dexamethasone day 06/12 * Remdesivir day 2 * IS/Acapella * RT consult * O2 as needed to keep saturations 88-95% * Continue home Phenergan/codeine cough syrup * Continuous pulse oximetry * Telemetry * Discontinue IV fluids today * Monitor daily labs * Re-check D-dimer tomorrow * PRN albuterol MDI * PRN Duonebs * Prone whenever able * No need for PT/OT at this time * Zinc supplementation * Vitamin D WNL * Antiemetics as ordered * Pain medications as ordered Hypokalemia, resolved * Supplemented * Monitor labs Anxiety * Situational * Offer encouragement * Consider Ativan PRN Dysuria * UA obtained and negative * Urine culture ordered * Daily azo scheduled TID for now Code status: Full Code PCP: None DVT prophylaxis: Lovenox Disposition: Patient mated to the medical floor on telemetry for management of COVID-19 symptoms. Likely discharge after 4 to 5 days of treatment.
[2020-12-27] MEDS: Albuterol 6.7 GM Inhaler INH PRN ×4 (07:49→21:16)
[2020-12-27] MEDS: Zinc Sulfate 220 MG Cap PO SCH (08:18)
[2020-12-27] MEDS: Phenazopyridine 95 MG Tab PO SCH ×3 (08:18→18:59)
[2020-12-27] MEDS: Codeine/Promethazine 10-6.25 MG/5 ML Syrup 5 ML UD Cup PO PRN ×2 (08:18→20:05)
[2020-12-27] MEDS: Acetaminophen 325 MG Tab PO PRN (08:19)
[2020-12-27] MEDS: Enoxaparin 40 MG/0.4 ML Syringe SUBCUT SCH (08:19)
[2020-12-27] MEDS: Dexamethasone 4 MG Tab PO SCH (08:20)
--- NOTE | 2020-12-27 10:00 | PCM.PN ---
<Nathaniel Bella - Last Filed: 12/27/20 11:21> - General Info Date of Service: 12/27/20 Admission Dx/Problem (Free Text): COVID-19 pneumonia with gastroenteritis Functional Status: Reports: Pain Controlled, Tolerating Diet, Ambulating, Urinating, Incentive Spirometry, Other (Acapella ). Denies: New Symptoms - Review of Systems General: Reports: No Symptoms, Weakness, Fatigue, Malaise. Denies: Fever, Chills HEENT: Reports: No Symptoms. Denies: Headaches, Sore Throat Pulmonary: Reports: Shortness of Breath, Pleuritic Chest Pain, Cough, Sputum. Denies: Wheezing Cardiovascular: Reports: Dyspnea on Exertion. Denies: Chest Pain, Palpitations, Edema Gastrointestinal: Reports: Abdominal Pain (upper quadrants at rib border, likely secondary to coughing fits.), Diarrhea. Denies: Constipation, Nausea, Vomiting Genitourinary: Reports: Dysuria. Denies: Frequency, Urgency, Incontinence Musculoskeletal: Reports: No Symptoms Skin: Reports: No Symptoms. Denies: Cyanosis Neurological: Reports: No Symptoms, Weakness. Denies: Confusion, Dizziness, Headache, Numbness, Pre-Existing Deficit, Seizure, Syncope, Tingling, Tremors, Trouble Speaking, Difficulty Walking, Change in Speech, Gait Disturbance Psychiatric: Reports: No Symptoms - Patient Data Vitals - Most Recent: Last Vital Signs Temp 98.1 F 12/27/20 08:05 Pulse 86 12/27/20 08:05 Resp 18 12/27/20 08:05 BP 106/58 L 12/27/20 08:05 Pulse Ox 92 L 12/27/20 08:05 Weight - Most Recent: 82.282 kg I&O - Last 24 Hours: Intake & Output 12/26/20 12/27/20 12/27/20 22:59 06:59 14:59 Intake Total 1000 Output Total 400 Balance 600 Lab Results Last 24 Hours: Laboratory Results - last 24 hr 12/26/20 12/27/20 12/27/20 Range/Units 05:00 06:53 06:53 WBC 8.50 (3.98-10.04) K/mm3 RBC 5.09 (3.98-5.22) M/mm3 Hgb 14.4 (11.2-15.7) gm/dl Hct 44.3 (34.1-44.9) % MCV 87.0 (79.4-94.8) fl MCH 28.3 (25.6-32.2) pg MCHC 32.5 (32.2-35.5) g/dl RDW Std Deviation 42.0 (36.4-46.3) fL Plt Count 349 D (182-369) K/mm3 MPV 9.6 (9.4-12.3) fl Neut % (Auto) 82.6 H (34.0-71.1) % Lymph % (Auto) 12.2 L (19.3-51.7) % [place] % (Auto) 4.6 L (4.7-12.5) % Eos % (Auto) 0 L (0.7-5.8) Baso % (Auto) 0.2 (0.1-1.2) % Neut # (Auto) 7.02 H (1.56-6.13) K/mm3 Lymph # (Auto) 1.04 L (1.18-3.74) K/mm3 [place] # (Auto) 0.39 H (0.24-0.36) K/mm3 Eos # (Auto) 0.00 L (0.04-0.36) K/mm3 Baso # (Auto) 0.02 (0.01-0.08) K/mm3 Manual Slide Review Abnormal smear D-Dimer, Quantitative 0.35 (0.19-0.50) mg/L Sodium (136-145) mEq/L Potassium (3.5-5.1) mEq/L Chloride (98-107) mEq/L Carbon Dioxide (21-32) mEq/L Anion Gap (5-15) BUN (7-18) mg/dL Creatinine (0.55-1.02) mg/dL Est Cr Clr Drug Dosing mL/min Estimated GFR (MDRD) (>60) mL/min BUN/Creatinine Ratio (14-18) Glucose (70-99) mg/dL Calcium (8.5-10.1) mg/dL Total Bilirubin (0.2-1.0) mg/dL AST (15-37) U/L ALT (14-59) U/L Alkaline Phosphatase (46-116) U/L C-Reactive Protein (<1.0) mg/dL Total Protein (6.4-8.2) g/dl Albumin (3.4-5.0) g/dl Globulin gm/dL Albumin/Globulin Ratio (1-2) Vitamin D 25-Hydroxy 35.9 (30.0-100.0) ng/ml 12/27/20 Range/Units 06:53 WBC (3.98-10.04) K/mm3 RBC (3.98-5.22) M/mm3 Hgb (11.2-15.7) gm/dl Hct (34.1-44.9) % MCV (79.4-94.8) fl MCH (25.6-32.2) pg MCHC (32.2-35.5) g/dl RDW Std Deviation (36.4-46.3) fL Plt Count (182-369) K/mm3 MPV (9.4-12.3) fl Neut % (Auto) (34.0-71.1) % Lymph % (Auto) (19.3-51.7) % [place] % (Auto) (4.7-12.5) % Eos % (Auto) (0.7-5.8) Baso % (Auto) (0.1-1.2) % Neut # (Auto) (1.56-6.13) K/mm3 Lymph # (Auto) (1.18-3.74) K/mm3 [place] # (Auto) (0.24-0.36) K/mm3 Eos # (Auto) (0.04-0.36) K/mm3 Baso # (Auto) (0.01-0.08) K/mm3 Manual Slide Review D-Dimer, Quantitative (0.19-0.50) mg/L Sodium 142 (136-145) mEq/L Potassium 3.3 L (3.5-5.1) mEq/L Chloride 104 (98-107) mEq/L Carbon Dioxide 29 (21-32) mEq/L Anion Gap 12.3 (5-15) BUN 12 (7-18) mg/dL Creatinine 0.7 (0.55-1.02) mg/dL Est Cr Clr Drug Dosing 95.02 mL/min Estimated GFR (MDRD) > 60 (>60) mL/min BUN/Creatinine Ratio 17.1 (14-18) Glucose 132 H (70-99) mg/dL Calcium 8.2 L (8.5-10.1) mg/dL Total Bilirubin 0.3 (0.2-1.0) mg/dL AST 33 (15-37) U/L ALT 20 (14-59) U/L Alkaline Phosphatase 66 (46-116) U/L C-Reactive Protein 4.7 H* (<1.0) mg/dL Total Protein 7.1 (6.4-8.2) g/dl Albumin 2.6 L (3.4-5.0) g/dl Globulin 4.5 gm/dL Albumin/Globulin Ratio 0.6 L (1-2) Vitamin D 25-Hydroxy (30.0-100.0) ng/ml Med Orders - Current: Current Medications Acetaminophen (Acetaminophen 325 Mg Tab) 650 mg PO Q4H PRN PRN Reason: Pain (Mild 1-3)/fever Last Admin: 12/27/20 08:19 Dose: 650 mg Documented by: Albuterol (Albuterol 6.7 Gm Inhaler) 0 gm INH Q4H PRN PRN Reason: sob/wheezing Last Admin: 12/27/20 07:49 Dose: 2 puff Documented by: Albuterol/Ipratropium (Albuterol/Ipratropium 3.0-0.5 Mg/3 Ml Neb Soln) 3 ml NEB Q4H PRN PRN Reason: Shortness Of Breath/wheezing Last Admin: 12/26/20 05:20 Dose: 3 ml Documented by: Dexamethasone (Dexamethasone 4 Mg Tab) 6 mg PO DAILY [facility] Last Admin: 12/27/20 08:20 Dose: 6 mg Documented by: Docusate Sodium (Docusate Sodium 100 Mg Cap) 100 mg PO BID PRN PRN Reason: Constipation Enoxaparin Sodium (Enoxaparin 40 Mg/0.4 Ml Syringe) 40 mg SUBCUT DAILY [facility] Last Admin: 12/27/20 08:19 Dose: 40 mg Documented by: Remdesivir 100 mg/ Sodium (Chloride) 100 mls @ 100 mls/hr IV Q24H [facility] Stop: 12/29/20 18:29 Last Admin: 12/26/20 18:02 Dose: 100 mls/hr Documented by: Ondansetron HCl (Ondansetron 4 Mg Tab.Dis) 4 mg PO Q4H PRN PRN Reason: nausea, able to take PO Last Admin: 12/27/20 06:33 Dose: 4 mg Documented by: Ondansetron HCl (Ondansetron 4 Mg/2 Ml Sdv) 4 mg IV Q4H PRN PRN Reason: Nausea/Vomiting Oxycodone HCl (Oxycodone 5 Mg Tab) 5 mg PO Q4H PRN PRN Reason: Pain (moderate 4-6) Phenazopyridine HCl (Phenazopyridine 95 Mg Tab) 95 mg PO TIDPC [facility] Last Admin: 12/27/20 08:18 Dose: 95 mg Documented by: Promethazine HCl/Codeine (Codeine/Promethazine 10-6.25 Mg/5 Ml Syrup 5 Ml Ud Cup) 5 ml PO Q4H PRN PRN Reason: Cough Last Admin: 12/27/20 08:18 Dose: 5 ml Documented by: Temazepam (Temazepam 15 Mg Cap) 15 mg PO BEDTIME PRN PRN Reason: Sleep Last Admin: 12/26/20 20:18 Dose: 15 mg Documented by: Zinc Sulfate (Zinc Sulfate 220 Mg Cap) 220 mg PO DAILY [facility] Last Admin: 12/27/20 08:18 Dose: 220 mg Documented by: Discontinued Medications Albuterol (Albuterol 6.7 Gm Inhaler) Confirm Administered Dose 6.7 gm INH .STK- MED ONE Stop: 12/26/20 08:37 Last Admin: 12/26/20 08:41 Dose: Not Given Documented by: Dexamethasone (Dexamethasone 4 Mg/Ml 5 Ml Mdv) 6 mg IV ONETIME ONE Stop: 12/25/20 16:55 Last Admin: 12/25/20 17:43 Dose: Not Given Documented by: Dextrose/Lactated Ringer's (Dextrose 5%-Lactated Ringers) 1,000 mls @ 250 mls/hr IV ASDIRECTED [facility] Last Admin: 12/25/20 17:44 Dose: 250 mls/hr Documented by: Remdesivir 200 mg/ Sodium (Chloride) 250 mls @ 250 mls/hr IV ONETIME ONE Stop: 12/25/20 16:52 Last Admin: 12/25/20 17:47 Dose: 250 mls/hr Documented by: Remdesivir (Remdesivir) Confirm Administered Dose 100 mls @ as directed .ROUTE .STK-MED ONE Stop: 12/25/20 17:15 Last Admin: 12/25/20 19:24 Dose: Not Given Documented by: Sodium Chloride (Normal Saline) 1,000 mls @ 125 mls/hr IV ASDIRECTED [facility]IRIAM Last Admin: 12/26/20 05:03 Dose: 125 mls/hr Documented by: Potassium Chloride 10 meq/ (Premix) 100 mls @ 100 mls/hr IV Q1H [facility] Stop: 12/25/20 22:59 Last Admin: 12/26/20 00:33 Dose: 100 mls/hr Documented by: Metoclopramide HCl (Metoclopramide 10 Mg/2 Ml Sdv) 7.5 mg IVPUSH ONETIME ONE Stop: 12/25/20 16:47 Last Admin: 12/25/20 17:45 Dose: Not Given Documented by: Ondansetron HCl (Ondansetron 4 Mg/2 Ml Sdv) 4 mg IVPUSH ONETIME ONE Stop: 12/25/20 18:09 Last Admin: 12/25/20 18:17 Dose: 4 mg Documented by: Promethazine HCl/Codeine (Codeine/Promethazine 10-6.25 Mg/5 Ml Syrup 5 Ml Ud Cup) 5 ml PO ASDIRECTED PRN PRN Reason: Cough Last Admin: 12/26/20 08:10 Dose: 5 ml Documented by: - Exam Quality Assessment: Supplemental Oxygen (1 L), DVT Prophylaxis. No: Urine Catheter General: Alert, Oriented, Cooperative, Mild Distress (Looks uncomfortable) HEENT: Pupils Equal, Pupils Reactive, Mucous Membr. Moist/[place] Neck: Supple, Trachea Midline Lungs: Normal Respiratory Effort, Decreased Breath Sounds. No: Crackles, Rhonc hi, Wheezing Cardiovascular: Regular Rate, Regular Rhythm GI/Abdominal Exam: Normal Bowel Sounds, Soft, Non-Tender, No Distention, No Abnormal Bruit (Female) Exam: Deferred Back Exam: Normal Inspection, Full Range of Motion Extremities: Normal Inspection, Normal Range of Motion, Non-Tender, No Pedal Edema, Normal Capillary Refill Peripheral Pulses: 2+: Radial (L), Radial (R), Dorsalis Pedis (L), Dorsalis Pedis (R) Skin: Warm, Dry, Intact Neurological: No New Focal Deficit Psy/Mental Status: Alert, Anxious, Depressed - Patient Data Lab Results Last 24 hrs: Laboratory Results - last 24 hr 12/26/20 12/27/20 12/27/20 Range/Units 05:00 06:53 06:53 WBC 8.50 (3.98-10.04) K/mm3 RBC 5.09 (3.98-5.22) M/mm3 Hgb 14.4 (11.2-15.7) gm/dl Hct 44.3 (34.1-44.9) % MCV 87.0 (79.4-94.8) fl MCH 28.3 (25.6-32.2) pg MCHC 32.5 (32.2-35.5) g/dl RDW Std Deviation 42.0 (36.4-46.3) fL Plt Count 349 D (182-369) K/mm3 MPV 9.6 (9.4-12.3) fl Neut % (Auto) 82.6 H (34.0-71.1) % Lymph % (Auto) 12.2 L (19.3-51.7) % [place] % (Auto) 4.6 L (4.7-12.5) % Eos % (Auto) 0 L (0.7-5.8) Baso % (Auto) 0.2 (0.1-1.2) % Neut # (Auto) 7.02 H (1.56-6.13) K/mm3 Lymph # (Auto) 1.04 L (1.18-3.74) K/mm3 [place] # (Auto) 0.39 H (0.24-0.36) K/mm3 Eos # (Auto) 0.00 L (0.04-0.36) K/mm3 Baso # (Auto) 0.02 (0.01-0.08) K/mm3 Manual Slide Review Abnormal smear D-Dimer, Quantitative 0.35 (0.19-0.50) mg/L Sodium (136-145) mEq/L Potassium (3.5-5.1) mEq/L Chloride (98-107) mEq/L Carbon Dioxide (21-32) mEq/L Anion Gap (5-15) BUN (7-18) mg/dL Creatinine (0.55-1.02) mg/dL Est Cr Clr Drug Dosing mL/min Estimated GFR (MDRD) (>60) mL/min BUN/Creatinine Ratio (14-18) Glucose (70-99) mg/dL Calcium (8.5-10.1) mg/dL Total Bilirubin (0.2-1.0) mg/dL AST (15-37) U/L ALT (14-59) U/L Alkaline Phosphatase (46-116) U/L C-Reactive Protein (<1.0) mg/dL Total Protein (6.4-8.2) g/dl Albumin (3.4-5.0) g/dl Globulin gm/dL Albumin/Globulin Ratio (1-2) Vitamin D 25-Hydroxy 35.9 (30.0-100.0) ng/ml 12/27/20 Range/Units 06:53 WBC (3.98-10.04) K/mm3 RBC (3.98-5.22) M/mm3 Hgb (11.2-15.7) gm/dl Hct (34.1-44.9) % MCV (79.4-94.8) fl MCH (25.6-32.2) pg MCHC (32.2-35.5) g/dl RDW Std Deviation (36.4-46.3) fL Plt Count (182-369) K/mm3 MPV (9.4-12.3) fl Neut % (Auto) (34.0-71.1) % Lymph % (Auto) (19.3-51.7) % [place] % (Auto) (4.7-12.5) % Eos % (Auto) (0.7-5.8) Baso % (Auto) (0.1-1.2) % Neut # (Auto) (1.56-6.13) K/mm3 Lymph # (Auto) (1.18-3.74) K/mm3 [place] # (Auto) (0.24-0.36) K/mm3 Eos # (Auto) (0.04-0.36) K/mm3 Baso # (Auto) (0.01-0.08) K/mm3 Manual Slide Review D-Dimer, Quantitative (0.19-0.50) mg/L Sodium 142 (136-145) mEq/L Potassium 3.3 L (3.5-5.1) mEq/L Chloride 104 (98-107) mEq/L Carbon Dioxide 29 (21-32) mEq/L Anion Gap 12.3 (5-15) BUN 12 (7-18) mg/dL Creatinine 0.7 (0.55-1.02) mg/dL Est Cr Clr Drug Dosing 95.02 mL/min Estimated GFR (MDRD) > 60 (>60) mL/min BUN/Creatinine Ratio 17.1 (14-18) Glucose 132 H (70-99) mg/dL Calcium 8.2 L (8.5-10.1) mg/dL Total Bilirubin 0.3 (0.2-1.0) mg/dL AST 33 (15-37) U/L ALT 20 (14-59) U/L Alkaline Phosphatase 66 (46-116) U/L C-Reactive Protein 4.7 H* (<1.0) mg/dL Total Protein 7.1 (6.4-8.2) g/dl Albumin 2.6 L (3.4-5.0) g/dl Globulin 4.5 gm/dL Albumin/Globulin Ratio 0.6 L (1-2) Vitamin D 25-Hydroxy (30.0-100.0) ng/ml Result Diagrams: 12/27/20 06:53 12/27/20 06:53 Sepsis Event Note - Evaluation Sepsis Screening Result: No Definite Risk - Focused Exam Vital Signs: Vital Signs Temp Pulse Resp BP Pulse Ox Pulse Ox 12/27/20 08:05 98.1 F 86 18 106/58 L 92 L 12/27/20 07:49 93 L 12/27/20 07:25 77 96 12/27/20 03:48 97.9 F 68 22 H 128/63 93 L 12/26/20 22:56 98.2 F 70 18 94/60 92 L - Problem List & Annotations (1) Gastroenteritis SNOMED Code(s): 71259477 Code(s): K52.9 - NONINFECTIVE GASTROENTERITIS AND COLITIS, UNSPECIFIED Status: Acute Priority: High Current Visit: Yes (2) Pneumonia due to COVID-19 virus SNOMED Code(s): 390670970042820888 Code(s): U07.1 - COVID-19; J12.82 - PNEUMONIA DUE TO CORONAVIRUS DISEASE 2019 Status: Acute Priority: High Current Visit: Yes (3) Respiratory failure with hypoxia SNOMED Code(s): 96377609418843893 Code(s): J96.91 - RESPIRATORY FAILURE, UNSPECIFIED WITH HYPOXIA Status: Acute Priority: High Current Visit: Yes Qualifiers: Chronicity: acute Qualified Code(s): J96.01 - Acute respiratory failure with hypoxia (4) Volume depletion SNOMED Code(s): 522104122 Code(s): E86.9 - VOLUME DEPLETION, UNSPECIFIED Status: Resolved Priority: High Current Visit: Yes (5) Diarrhea SNOMED Code(s): 06234802 Code(s): R19.7 - DIARRHEA, UNSPECIFIED Status: Acute Priority: High Current Visit: Yes Qualifiers: Diarrhea type: unspecified type Qualified Code(s): R19.7 - Diarrhea, unspecified (6) Nausea and vomiting SNOMED Code(s): 17666097 Code(s): R11.2 - NAUSEA WITH VOMITING, UNSPECIFIED Status: Resolved Priority: High Current Visit: Yes Qualifiers: Vomiting type: unspecified Vomiting Intractability: unspecified Qualified Code(s): R11.2 - Nausea with vomiting, unspecified (7) Anxiety SNOMED Code(s): 28857208 Code(s): F41.9 - ANXIETY DISORDER, UNSPECIFIED Status: Acute Priority: High Current Visit: Yes (8) Dysuria SNOMED Code(s): 65216957 Code(s): R30.0 - DYSURIA Status: Acute Priority: Medium Current Visit: Yes (9) Hypokalemia SNOMED Code(s): 84891736 Code(s): E87.6 - HYPOKALEMIA Status: Acute Priority: High Current Visit: Yes - Problem List Review Problem List Initiated/Reviewed/Updated: Yes - My Orders Last 24 Hours: My Active Orders 12/26/20 09:14 Nurse Communication: Isolation [RC] ASDIRECTED Positioning, Patient [RC] ASDIRECTED RT Incentive Spirometry [RC] ASDIRECTED Isolation [COMM] Stat RT Acapella [RESPCARE] Routine 12/26/20 09:15 Zinc Sulfate [Zincate] 220 mg PO DAILY 12/26/20 10:22 Consult to Respiratory Therapy [Respiratory Care Assess and Treatment] [CONS] Routine 12/26/20 11:04 CULTURE URINE [MREF] Routine 12/26/20 13:00 Phenazopyridine [Urinary Pain Relief] 95 mg PO TIDPC 12/28/20 05:11 CBC WITH AUTO DIFF [HEME] AM CMP [COMPREHENSIVE METABOLIC PN,CMP] [CHEM] AM CRP [C-REACTIVE PROTEIN] [CHEM] AM 12/29/20 05:11 CBC WITH AUTO DIFF [HEME] AM CMP [COMPREHENSIVE METABOLIC PN,CMP] [CHEM] AM CRP [C-REACTIVE PROTEIN] [CHEM] AM 12/30/20 05:11 CBC WITH AUTO DIFF [HEME] AM CRP [C-REACTIVE PROTEIN] [CHEM] AM - Assessment Assessment:: Assessment - day of admission 12/25/2020 The patient is a 35-year-old lady who had been under treatment for COVID-19 symptoms and had continued to decline. The patient has been admitted as an inpatient. She has been started on remdesivir 100 mg IV starting December 26, 2020 and she has also been placed on dexamethasone. The dexamethasone 6 mg p.o. daily will start tomorrow. The patient also has been ordered to have p.o. Zofran if tolerated or IV Zofran if needed. The patient also has been kept on her home Phenergan and codeine cough syrup. The patient's oxygen saturations will be kept around 92% and the oxygen will be titrated. Repeat laboratory studies have been ordered for the morning. The patient will have regular diet as tolerated. The patient has been encouraged to ambulate. She will have DVT prophylaxis with the use of Lovenox 40 mg subcutaneously daily. The patient should be appropriate for discharge once discontinuation of remdesivir. 12/26/2020 35-year-old female who has known COVID-19 pneumonia presented to ED on with worsening symptoms, weakness, and essentially being bedridden. She was admitted and started on remdesivir and dexamethasone. She is also had nausea, vomiting, and diarrhea. Her nausea and vomiting have resolved since admission. She continues to have diarrhea. She is on her home Phenergan and codeine cough syrup. Incentive spirometry and Acapella have been added. Respiratory therapy is consulted. She states she is still very weak. She did show some clinical signs of dehydration and was placed on IV fluids. She has improved and these will be discontinued today. Zinc supplementation has been added. She is complaining of dysuria and UA was obtained and was essentially ne gative. He was noted to have 1+ protein, 2+ occult blood, 20-30 RBCs and moderate bacteria. hCG was checked and was negative. She has been encouraged to prone whenever able. She is currently off of oxygen with saturations in the very low 90s. Vital signs other flores remain good. For remain hospitalized for continued COVID-19 treatment. Will ordered urine culture and scheduled pyridium for dysuria. 12/27/2020 This is a 35-year-old female admitted to the floor for COVID-19 pneumonia symptoms. She had failed outpatient treatment. Overall she remains stable is. She states she feels about the same as she has. She is been requiring 1 L today and we really discussed importance of Acapella, incentive spirometry, proning, and remaining active in the room. Labs today show WBC of 8.50. Hemoglobin 14.4. Platelet 349,000. Neutrophils are 82.6%. D-dimer was 0.35. Sodium was 142. Potassium today is 3.2 will be supplemented. Given her prior gastroenteritis symptoms we will utilize IV supplementation. Chloride 104. Carbon dioxide 29. Anion gap 12.3. BUN is 12. Creatinine 0.7. GFR greater than 60. Glucose 132. Calcium 8.2. Bilirubin 0.3. AST is 33, ALT 20, alkaline phosphatase 66. CRP is down to 4.7. Protein 7.1. Albumin remains 2.6 . Patient has been complaining of dysuria and UA reveals 1+ protein, 2+ occult blood, 20-30 RBCs, and moderate bacteria. Urine culture is ordered and pending. Patient was started on Pyridium yesterday. She continues to receive dexamethasone and remdesivir. We will continue this and work-up weaning her off of this oxygen. Length of stay likely 5 days total to complete remdesivir treatment. - Plan Plan:: Gastroenteritis Pneumonia due to COVID-19 virus Respiratory failure with hypoxia Volume depletion, Resolved Diarrhea Nausea and vomiting, Resolved * Airborne/contact isolation * Dexamethasone day 3 * Remdesivir day 3/5 * IS/Acapella * RT consult * O2 as needed to keep saturations 88-95% * Continue home Phenergan/codeine cough syrup * Continuous pulse oximetry * Telemetry * Monitor daily labs * PRN albuterol MDI * PRN Duonebs * Prone whenever able * No need for PT/OT at this time * Zinc supplementation * Vitamin D WNL * Antiemetics as ordered * Pain medications as ordered Hypokalemia * Supplement via IV supplementation given recent GI issues. * Monitor labs Anxiety * Situational * Offer encouragement * Consider Ativan PRN Dysuria * UA obtained and negative * Urine culture ordered * Daily azo scheduled TID for now Code status: Full Code PCP: None DVT prophylaxis: Lovenox Disposition: Patient mated to the medical floor on telemetry for management of COVID-19 symptoms. Likely discharge after 4 to 5 days of treatment. <Omid Anderson - Last Filed: 12/27/20 14:32> - Patient Data Vitals - Most Recent: Last Vital Signs Temp 36.6 C 12/27/20 11:43 Pulse 70 12/27/20 11:43 Resp 20 12/27/20 11:43 BP 100/78 12/27/20 11:43 Pulse Ox 93 L 12/27/20 12:54 I&O - Last 24 Hours: Intake & Output 12/26/20 12/27/20 12/27/20 22:59 06:59 14:59 Intake Total 1000 Output Total 400 Balance 600 Lab Results Last 24 Hours: Laboratory Results - last 24 hr 12/27/20 12/27/20 12/27/20 Range/Units 06:53 06:53 06:53 WBC 8.50 (3.98-10.04) K/mm3 RBC 5.09 (3.98-5.22) M/mm3 Hgb 14.4 (11.2-15.7) gm/dl Hct 44.3 (34.1-44.9) % MCV 87.0 (79.4-94.8) fl MCH 28.3 (25.6-32.2) pg MCHC 32.5 (32.2-35.5) g/dl RDW Std Deviation 42.0 (36.4-46.3) fL Plt Count 349 D (182-369) K/mm3 MPV 9.6 (9.4-12.3) fl Neut % (Auto) 82.6 H (34.0-71.1) % Lymph % (Auto) 12.2 L (19.3-51.7) % [place] % (Auto) 4.6 L (4.7-12.5) % Eos % (Auto) 0 L (0.7-5.8) Baso % (Auto) 0.2 (0.1-1.2) % Neut # (Auto) 7.02 H (1.56-6.13) K/mm3 Lymph # (Auto) 1.04 L (1.18-3.74) K/mm3 [place] # (Auto) 0.39 H (0.24-0.36) K/mm3 Eos # (Auto) 0.00 L (0.04-0.36) K/mm3 Baso # (Auto) 0.02 (0.01-0.08) K/mm3 Manual Slide Review Abnormal smear D-Dimer, Quantitative 0.35 (0.19-0.50) mg/L Sodium 142 (136-145) mEq/L Potassium 3.3 L (3.5-5.1) mEq/L Chloride 104 (98-107) mEq/L Carbon Dioxide 29 (21-32) mEq/L Anion Gap 12.3 (5-15) BUN 12 (7-18) mg/dL Creatinine 0.7 (0.55-1.02) mg/dL Est Cr Clr Drug Dosing 95.02 mL/min Estimated GFR (MDRD) > 60 (>60) mL/min BUN/Creatinine Ratio 17.1 (14-18) Glucose 132 H (70-99) mg/dL Calcium 8.2 L (8.5-10.1) mg/dL Total Bilirubin 0.3 (0.2-1.0) mg/dL AST 33 (15-37) U/L ALT 20 (14-59) U/L Alkaline Phosphatase 66 (46-116) U/L C-Reactive Protein 4.7 H* (<1.0) mg/dL Total Protein 7.1 (6.4-8.2) g/dl Albumin 2.6 L (3.4-5.0) g/dl Globulin 4.5 gm/dL Albumin/Globulin Ratio 0.6 L (1-2) Med Orders - Current: Current Medications Acetaminophen (Acetaminophen 325 Mg Tab) 650 mg PO Q4H PRN PRN Reason: Pain (Mild 1-3)/fever Last Admin: 12/27/20 08:19 Dose: 650 mg Documented by: Albuterol (Albuterol 6.7 Gm Inhaler) 0 gm INH Q4H PRN PRN Reason: sob/wheezing Last Admin: 12/27/20 12:53 Dose: 2 puff Documented by: Albuterol/Ipratropium (Albuterol/Ipratropium 3.0-0.5 Mg/3 Ml Neb Soln) 3 ml NEB Q4H PRN PRN Reason: Shortness Of Breath/wheezing Last Admin: 12/26/20 05:20 Dose: 3 ml Documented by: Dexamethasone (Dexamethasone 4 Mg Tab) 6 mg PO DAILY [facility] Last Admin: 12/27/20 08:20 Dose: 6 mg Documented by: Docusate Sodium (Docusate Sodium 100 Mg Cap) 100 mg PO BID PRN PRN Reason: Constipation Enoxaparin Sodium (Enoxaparin 40 Mg/0.4 Ml Syringe) 40 mg SUBCUT DAILY [facility] Last Admin: 12/27/20 08:19 Dose: 40 mg Documented by: Remdesivir 100 mg/ Sodium (Chloride) 100 mls @ 100 mls/hr IV Q24H [facility] Stop: 12/29/20 18:29 Last Admin: 12/26/20 18:02 Dose: 100 mls/hr Documented by: Sodium Chloride (Normal Saline) 1,000 mls @ 50 mls/hr IV ASDIRECTED [facility] Last Admin: 12/27/20 13:51 Dose: 50 mls/hr Documented by: Potassium Chloride 10 meq/ (Premix) 100 mls @ 25 mls/hr IV Q4H [facility] Stop: 12/28/20 05:59 Ondansetron HCl (Ondansetron 4 Mg Tab.Dis) 4 mg PO Q4H PRN PRN Reason: nausea, able to take PO Last Admin: 12/27/20 06:33 Dose: 4 mg Documented by: Ondansetron HCl (Ondansetron 4 Mg/2 Ml Sdv) 4 mg IV Q4H PRN PRN Reason: Nausea/Vomiting Oxycodone HCl (Oxycodone 5 Mg Tab) 5 mg PO Q4H PRN PRN Reason: Pain (moderate 4-6) Phenazopyridine HCl (Phenazopyridine 95 Mg Tab) 95 mg PO TIDPC [facility] Last Admin: 12/27/20 12:19 Dose: 95 mg Documented by: Promethazine HCl/Codeine (Codeine/Promethazine 10-6.25 Mg/5 Ml Syrup 5 Ml Ud Cup) 5 ml PO Q4H PRN PRN Reason: Cough Last Admin: 12/27/20 08:18 Dose: 5 ml Documented by: Temazepam (Temazepam 15 Mg Cap) 15 mg PO BEDTIME PRN PRN Reason: Sleep Last Admin: 12/26/20 20:18 Dose: 15 mg Documented by: Zinc Sulfate (Zinc Sulfate 220 Mg Cap) 220 mg PO DAILY [facility] Last Admin: 12/27/20 08:18 Dose: 220 mg Documented by: Discontinued Medications Albuterol (Albuterol 6.7 Gm Inhaler) Confirm Administered Dose 6.7 gm INH .STK- MED ONE Stop: 12/26/20 08:37 Last Admin: 12/26/20 08:41 Dose: Not Given Documented by: Dexamethasone (Dexamethasone 4 Mg/Ml 5 Ml Mdv) 6 mg IV ONETIME ONE Stop: 12/25/20 16:55 Last Admin: 12/25/20 17:43 Dose: Not Given Documented by: Dextrose/Lactated Ringer's (Dextrose 5%-Lactated Ringers) 1,000 mls @ 250 mls/hr IV ASDIRECTED [facility] Last Admin: 12/25/20 17:44 Dose: 250 mls/hr Documented by: Remdesivir 200 mg/ Sodium (Chloride) 250 mls @ 250 mls/hr IV ONETIME ONE Stop: 12/25/20 16:52 Last Admin: 12/25/20 17:47 Dose: 250 mls/hr Documented by: Remdesivir (Remdesivir) Confirm Administered Dose 100 mls @ as directed .ROUTE .STK-MED ONE Stop: 12/25/20 17:15 Last Admin: 12/25/20 19:24 Dose: Not Given Documented by: Sodium Chloride (Normal Saline) 1,000 mls @ 125 mls/hr IV ASDIRECTED [facility] Last Admin: 12/26/20 05:03 Dose: 125 mls/hr Documented by: Potassium Chloride 10 meq/ (Premix) 100 mls @ 100 mls/hr IV Q1H [facility] Stop: 12/25/20 22:59 Last Admin: 12/26/20 00:33 Dose: 100 mls/hr Documented by: Potassium Chloride 10 meq/ (Premix) 100 mls @ 100 mls/hr IV Q1H [facility] Stop: 12/27/20 14:29 Last Admin: 12/27/20 12:20 Dose: 100 mls/hr Documented by: Metoclopramide HCl (Metoclopramide 10 Mg/2 Ml Sdv) 7.5 mg IVPUSH ONETIME ONE Stop: 12/25/20 16:47 Last Admin: 12/25/20 17:45 Dose: Not Given Documented by: Ondansetron HCl (Ondansetron 4 Mg/2 Ml Sdv) 4 mg IVPUSH ONETIME ONE Stop: 12/25/20 18:09 Last Admin: 12/25/20 18:17 Dose: 4 mg Documented by: Promethazine HCl/Codeine (Codeine/Promethazine 10-6.25 Mg/5 Ml Syrup 5 Ml Ud Cup) 5 ml PO ASDIRECTED PRN PRN Reason: Cough Last Admin: 12/26/20 08:10 Dose: 5 ml Documented by: - Patient Data Lab Results Last 24 hrs: Laboratory Results - last 24 hr 12/27/20 12/27/20 12/27/20 Range/Units 06:53 06:53 06:53 WBC 8.50 (3.98-10.04) K/mm3 RBC 5.09 (3.98-5.22) M/mm3 Hgb 14.4 (11.2-15.7) gm/dl Hct 44.3 (34.1-44.9) % MCV 87.0 (79.4-94.8) fl MCH 28.3 (25.6-32.2) pg MCHC 32.5 (32.2-35.5) g/dl RDW Std Deviation 42.0 (36.4-46.3) fL Plt Count 349 D (182-369) K/mm3 MPV 9.6 (9.4-12.3) fl Neut % (Auto) 82.6 H (34.0-71.1) % Lymph % (Auto) 12.2 L (19.3-51.7) % [place] % (Auto) 4.6 L (4.7-12.5) % Eos % (Auto) 0 L (0.7-5.8) Baso % (Auto) 0.2 (0.1-1.2) % Neut # (Auto) 7.02 H (1.56-6.13) K/mm3 Lymph # (Auto) 1.04 L (1.18-3.74) K/mm3 [place] # (Auto) 0.39 H (0.24-0.36) K/mm3 Eos # (Auto) 0.00 L (0.04-0.36) K/mm3 Baso # (Auto) 0.02 (0.01-0.08) K/mm3 Manual Slide Review Abnormal smear D-Dimer, Quantitative 0.35 (0.19-0.50) mg/L Sodium 142 (136-145) mEq/L Potassium 3.3 L (3.5-5.1) mEq/L Chloride 104 (98-107) mEq/L Carbon Dioxide 29 (21-32) mEq/L Anion Gap 12.3 (5-15) BUN 12 (7-18) mg/dL Creatinine 0.7 (0.55-1.02) mg/dL Est Cr Clr Drug Dosing 95.02 mL/min Estimated GFR (MDRD) > 60 (>60) mL/min BUN/Creatinine Ratio 17.1 (14-18) Glucose 132 H (70-99) mg/dL Calcium 8.2 L (8.5-10.1) mg/dL Total Bilirubin 0.3 (0.2-1.0) mg/dL AST 33 (15-37) U/L ALT 20 (14-59) U/L Alkaline Phosphatase 66 (46-116) U/L C-Reactive Protein 4.7 H* (<1.0) mg/dL Total Protein 7.1 (6.4-8.2) g/dl Albumin 2.6 L (3.4-5.0) g/dl Globulin 4.5 gm/dL Albumin/Globulin Ratio 0.6 L (1-2) Result Diagrams: 12/27/20 06:53 12/27/20 06:53 Sepsis Event Note - Focused Exam Vital Signs: Vital Signs Temp Pulse Resp BP Pulse Ox Pulse Ox 12/27/20 12:54 93 L 12/27/20 11:43 36.6 C 70 20 100/78 93 L 12/27/20 08:05 36.7 C 86 18 106/58 L 92 L 12/27/20 07:49 93 L 12/27/20 07:25 77 96 12/27/20 03:48 36.6 C 68 22 H 128/63 93 L - Problem List & Annotations (1) Pneumonia due to COVID-19 virus SNOMED Code(s): 791360108468080653 Code(s): U07.1 - COVID-19; J12.82 - PNEUMONIA DUE TO CORONAVIRUS DISEASE 2019 Status: Acute Priority: High Current Visit: Yes (2) Respiratory failure with hypoxia SNOMED Code(s): 99122718265216734 Code(s): J96.91 - RESPIRATORY FAILURE, UNSPECIFIED WITH HYPOXIA Status: Acute Priority: High Current Visit: Yes Qualifiers: Chronicity: acute Qualified Code(s): J96.01 - Acute respiratory failure with hypoxia (3) Volume depletion SNOMED Code(s): 769524793 Code(s): E86.9 - VOLUME DEPLETION, UNSPECIFIED Status: Resolved Priority: High Current Visit: Yes (4) Gastroenteritis SNOMED Code(s): 67893136 Code(s): K52.9 - NONINFECTIVE GASTROENTERITIS AND COLITIS, UNSPECIFIED S tatus: Acute Priority: High Current Visit: Yes - My Orders Last 24 Hours: My Active Orders 12/26/20 17:30 Remdesivir 100 mg Sodium Chloride 0.9% [Normal Saline] 100 ml IV Q24H - Free Text/Narrative Note: I have seen and examined the patient independently of Nathaniel Bella PA-C and have discussed the case with him. I have reviewed and agree with the orders and plan of care outlined by him. Please see orders.
[2020-12-27] MEDS: Potassium Chloride 10 MEQ in Premix Bag 1 BAG IV SCH ×5 (12:20→21:07)
[2020-12-27] MEDS ORDERED: Sodium Chloride 0.9% 1,000 ML IV SCH (12:45)
[2020-12-27] MEDS: REMDESIVIR 100 MG in Sodium Chloride 0.9% 100 ML IV SCH (16:56)
[2020-12-27] MEDS: LORazepam 1 MG Tab PO PRN (19:30)
[2020-12-27] MEDS: Temazepam 15 MG Cap PO PRN (20:05)
[2020-12-28] MEDS: Codeine/Promethazine 10-6.25 MG/5 ML Syrup 5 ML UD Cup PO PRN ×4 (01:51→21:34)
[2020-12-28] MEDS: Potassium Chloride 10 MEQ in Premix Bag 1 BAG IV SCH (01:52)
--- NOTE | 2020-12-28 07:38 | PCM.PN ---
- General Info Date of Service: 12/28/20 Admission Dx/Problem (Free Text): COVID-19 pneumonia with gastroenteritis Subjective Update: The patient is a 35-year-old lady who was admitted to acute hospitalization on December 25, 2020 due to COVID-19 pneumonia. The patient was also found to have a urinary tract infection due to E. coli. The patient has been tolerating her antibiotics. She is denied any new pain. The patient also says that she has been eating well. Her nausea and vomiting has also improved. She is not as anxious as she had been. Functional Status: Reports: Pain Controlled, Tolerating Diet - Review of Systems General: Reports: No Symptoms HEENT: Reports: No Symptoms Pulmonary: Reports: Shortness of Breath, Cough Cardiovascular: Reports: No Symptoms Gastrointestinal: Reports: No Symptoms Genitourinary: Reports: No Symptoms Musculoskeletal: Reports: No Symptoms Skin: Reports: No Symptoms Neurological: Reports: No Symptoms Psychiatric: Reports: No Symptoms - Patient Data Vitals - Most Recent: Last Vital Signs Temp 36.6 C 12/28/20 05:16 Pulse 62 12/28/20 05:16 Resp 20 12/28/20 05:16 BP 93/67 12/28/20 05:16 Pulse Ox 96 12/28/20 06:20 Weight - Most Recent: 83.37 kg I&O - Last 24 Hours: Intake & Output 12/27/20 12/28/20 12/28/20 22:59 06:59 14:59 Intake Total 867 847 Balance 867 847 Lab Results Last 24 Hours: Laboratory Results - last 24 hr 12/27/20 12/27/20 12/27/20 Range/Units 06:53 06:53 06:53 WBC (3.98-10.04) K/mm3 RBC (3.98-5.22) M/mm3 Hgb (11.2-15.7) gm/dl Hct (34.1-44.9) % MCV (79.4-94.8) fl MCH (25.6-32.2) pg MCHC (32.2-35.5) g/dl RDW Std Deviation (36.4-46.3) fL Plt Count (182-369) K/mm3 MPV (9.4-12.3) fl Neut % (Auto) (34.0-71.1) % Lymph % (Auto) (19.3-51.7) % [place] % (Auto) (4.7-12.5) % Eos % (Auto) (0.7-5.8) Baso % (Auto) (0.1-1.2) % Neut # (Auto) (1.56-6.13) K/mm3 Lymph # (Auto) (1.18-3.74) K/mm3 [place] # (Auto) (0.24-0.36) K/mm3 Eos # (Auto) (0.04-0.36) K/mm3 Baso # (Auto) (0.01-0.08) K/mm3 Manual Slide Review Abnormal smear D-Dimer, Quantitative 0.35 (0.19-0.50) mg/L Sodium 142 (136-145) mEq/L Potassium 3.3 L (3.5-5.1) mEq/L Chloride 104 (98-107) mEq/L Carbon Dioxide 29 (21-32) mEq/L Anion Gap 12.3 (5-15) BUN 12 (7-18) mg/dL Creatinine 0.7 (0.55-1.02) mg/dL Est Cr Clr Drug Dosing 95.02 mL/min Estimated GFR (MDRD) > 60 (>60) mL/min BUN/Creatinine Ratio 17.1 (14-18) Glucose 132 H (70-99) mg/dL Calcium 8.2 L (8.5-10.1) mg/dL Total Bilirubin 0.3 (0.2-1.0) mg/dL AST 33 (15-37) U/L ALT 20 (14-59) U/L Alkaline Phosphatase 66 (46-116) U/L C-Reactive Protein 4.7 H* (<1.0) mg/dL Total Protein 7.1 (6.4-8.2) g/dl Albumin 2.6 L (3.4-5.0) g/dl Globulin 4.5 gm/dL Albumin/Globulin Ratio 0.6 L (1-2) 12/28/20 12/28/20 Range/Units 05:08 05:08 WBC 6.64 (3.98-10.04) K/mm3 RBC 4.70 (3.98-5.22) M/mm3 Hgb 13.5 (11.2-15.7) gm/dl Hct 41.0 (34.1-44.9) % MCV 87.2 (79.4-94.8) fl MCH 28.7 (25.6-32.2) pg MCHC 32.9 (32.2-35.5) g/dl RDW Std Deviation 41.2 (36.4-46.3) fL Plt Count 367 (182-369) K/mm3 MPV 9.6 (9.4-12.3) fl Neut % (Auto) 69.5 (34.0-71.1) % Lymph % (Auto) 20.6 (19.3-51.7) % [place] % (Auto) 9.3 (4.7-12.5) % Eos % (Auto) 0 L (0.7-5.8) Baso % (Auto) 0.3 (0.1-1.2) % Neut # (Auto) 4.61 (1.56-6.13) K/mm3 Lymph # (Auto) 1.37 (1.18-3.74) K/mm3 [place] # (Auto) 0.62 H (0.24-0.36) K/mm3 Eos # (Auto) 0.00 L (0.04-0.36) K/mm3 Baso # (Auto) 0.02 (0.01-0.08) K/mm3 Manual Slide Review Abnormal smear D-Dimer, Quantitative (0.19-0.50) mg/L Sodium 141 (136-145) mEq/L Potassium 3.7 (3.5-5.1) mEq/L Chloride 106 (98-107) mEq/L Carbon Dioxide 26 (21-32) mEq/L Anion Gap 12.7 (5-15) BUN 10 (7-18) mg/dL Creatinine 0.5 L (0.55-1.02) mg/dL Est Cr Clr Drug Dosing 133.03 mL/min Estimated GFR (MDRD) > 60 (>60) mL/min BUN/Creatinine Ratio 20.0 H (14-18) Glucose 131 H (70-99) mg/dL Calcium 7.6 L (8.5-10.1) mg/dL Total Bilirubin 0.3 (0.2-1.0) mg/dL AST 40 H (15-37) U/L ALT 29 (14-59) U/L Alkaline Phosphatase 65 (46-116) U/L C-Reactive Protein 3.1 H* (<1.0) mg/dL Total Protein 6.2 L (6.4-8.2) g/dl Albumin 2.4 L (3.4-5.0) g/dl Globulin 3.8 gm/dL Albumin/Globulin Ratio 0.6 L (1-2) Clive Results Last 24 Hours: Microbiology 12/25/20 23:50 Urine Culture - Preliminary Urine Escherichia Coli Med Orders - Current: Current Medications Acetaminophen (Acetaminophen 325 Mg Tab) 650 mg PO Q4H PRN PRN Reason: Pain (Mild 1-3)/fever Last Admin: 12/27/20 08:19 Dose: 650 mg Documented by: Albuterol (Albuterol 6.7 Gm Inhaler) 0 gm INH Q4H PRN PRN Reason: sob/wheezing Last Admin: 12/27/20 21:16 Dose: 2 puff Documented by: Albuterol/Ipratropium (Albuterol/Ipratropium 3.0-0.5 Mg/3 Ml Neb Soln) 3 ml NEB Q4H PRN PRN Reason: Shortness Of Breath/wheezing Last Admin: 12/26/20 05:20 Dose: 3 ml Documented by: Dexamethasone (Dexamethasone 4 Mg Tab) 6 mg PO DAILY [facility] Last Admin: 12/27/20 08:20 Dose: 6 mg Documented by: Docusate Sodium (Docusate Sodium 100 Mg Cap) 100 mg PO BID PRN PRN Reason: Constipation Enoxaparin Sodium (Enoxaparin 40 Mg/0.4 Ml Syringe) 40 mg SUBCUT DAILY [facility] Last Admin: 12/27/20 08:19 Dose: 40 mg Documented by: Remdesivir 100 mg/ Sodium (Chloride) 100 mls @ 100 mls/hr IV Q24H [facility] Stop: 12/29/20 18:29 Last Admin: 12/27/20 16:56 Dose: 100 mls/hr Documented by: Sodium Chloride (Normal Saline) 1,000 mls @ 50 mls/hr IV ASDIRECTED [facility] Last Admin: 12/27/20 13:51 Dose: 50 mls/hr Documented by: Ceftriaxone Sodium 2 gm/ (Sodium Chloride) 100 mls @ 200 mls/hr IV Q24H [facility] Lorazepam (Lorazepam 1 Mg Tab) 1 mg PO Q6H PRN PRN Reason: Anxiety Last Admin: 12/27/20 19:30 Dose: 1 mg Documented by: Ondansetron HCl (Ondansetron 4 Mg Tab.Dis) 4 mg PO Q4H PRN PRN Reason: nausea, able to take PO Last Admin: 12/27/20 06:33 Dose: 4 mg Documented by: Ondansetron HCl (Ondansetron 4 Mg/2 Ml Sdv) 4 mg IV Q4H PRN PRN Reason: Nausea/Vomiting Oxycodone HCl (Oxycodone 5 Mg Tab) 5 mg PO Q4H PRN PRN Reason: Pain (moderate 4-6) Phenazopyridine HCl (Phenazopyridine 95 Mg Tab) 95 mg PO TIDPC [facility] Last Admin: 12/27/20 18:59 Dose: 95 mg Documented by: Promethazine HCl/Codeine (Codeine/Promethazine 10-6.25 Mg/5 Ml Syrup 5 Ml Ud Cup) 5 ml PO Q4H PRN PRN Reason: Cough Last Admin: 12/28/20 01:51 Dose: 5 ml Documented by: Temazepam (Temazepam 15 Mg Cap) 15 mg PO BEDTIME PRN PRN Reason: Sleep Last Admin: 12/27/20 20:05 Dose: 15 mg Documented by: Zinc Sulfate (Zinc Sulfate 220 Mg Cap) 220 mg PO DAILY [facility] Last Admin: 12/27/20 08:18 Dose: 220 mg Documented by: Discontinued Medications Albuterol (Albuterol 6.7 Gm Inhaler) Confirm Administered Dose 6.7 gm INH .STK- MED ONE Stop: 12/26/20 08:37 Last Admin: 12/26/20 08:41 Dose: Not Given Documented by: Dexamethasone (Dexamethasone 4 Mg/Ml 5 Ml Mdv) 6 mg IV ONETIME ONE Stop: 12/25/20 16:55 Last Admin: 12/25/20 17:43 Dose: Not Given Documented by: Dextrose/Lactated Ringer's (Dextrose 5%-Lactated Ringers) 1,000 mls @ 250 mls/hr IV ASDIRECTED [facility] Last Admin: 12/25/20 17:44 Dose: 250 mls/hr Documented by: Remdesivir 200 mg/ Sodium (Chloride) 250 mls @ 250 mls/hr IV ONETIME ONE Stop: 12/25/20 16:52 Last Admin: 12/25/20 17:47 Dose: 250 mls/hr Documented by: Remdesivir (Remdesivir) Confirm Administered Dose 100 mls @ as directed .ROUTE .STK-MED ONE Stop: 12/25/20 17:15 Last Admin: 12/25/20 19:24 Dose: Not Given Documented by: Sodium Chloride (Normal Saline) 1,000 mls @ 125 mls/hr IV ASDIRECTED [facility] Last Admin: 12/26/20 05:03 Dose: 125 mls/hr Documented by: Potassium Chloride 10 meq/ (Premix) 100 mls @ 100 mls/hr IV Q1H [facility] Stop: 12/25/20 22:59 Last Admin: 12/26/20 00:33 Dose: 100 mls/hr Documented by: Potassium Chloride 10 meq/ (Premix) 100 mls @ 100 mls/hr IV Q1H [facility] Stop: 12/27/20 14:29 Last Admin: 12/27/20 14:53 Dose: Not Given Documented by: Potassium Chloride 10 meq/ (Premix) 100 mls @ 25 mls/hr IV Q4H [facility] Stop: 12/28/20 05:59 Last Admin: 12/28/20 01:52 Dose: 25 mls/hr Documented by: Metoclopramide HCl (Metoclopramide 10 Mg/2 Ml Sdv) 7.5 mg IVPUSH ONETIME ONE Stop: 12/25/20 16:47 Last Admin: 12/25/20 17:45 Dose: Not Given Documented by: Ondansetron HCl (Ondansetron 4 Mg/2 Ml Sdv) 4 mg IVPUSH ONETIME ONE Stop: 12/25/20 18:09 Last Admin: 12/25/20 18:17 Dose: 4 mg Documented by: Promethazine HCl/Codeine (Codeine/Promethazine 10-6.25 Mg/5 Ml Syrup 5 Ml Ud C up) 5 ml PO ASDIRECTED PRN PRN Reason: Cough Last Admin: 12/26/20 08:10 Dose: 5 ml Documented by: - Exam Quality Assessment: Supplemental Oxygen, DVT Prophylaxis General: Alert, Oriented, Cooperative, No Acute Distress HEENT: Pupils Equal, Pupils Reactive, EOMI, Mucous Membr. Moist/[place] Neck: Supple, Trachea Midline Lungs: Clear to Auscultation, Normal Respiratory Effort Cardiovascular: Regular Rate, Regular Rhythm GI/Abdominal Exam: Normal Bowel Sounds, Soft, Non-Tender, No Distention (Female) Exam: Deferred Back Exam: Normal Inspection, Full Range of Motion Extremities: Normal Inspection, No Pedal Edema Skin: Warm, Dry, Intact Neurological: No New Focal Deficit Psy/Mental Status: Alert, Normal Affect - Patient Data Lab Results Last 24 hrs: Laboratory Results - last 24 hr 12/27/20 12/27/20 12/27/20 Range/Units 06:53 06:53 06:53 WBC (3.98-10.04) K/mm3 RBC (3.98-5.22) M/mm3 Hgb (11.2-15.7) gm/dl Hct (34.1-44.9) % MCV (79.4-94.8) fl MCH (25.6-32.2) pg MCHC (32.2-35.5) g/dl RDW Std Deviation (36.4-46.3) fL Plt Count (182-369) K/mm3 MPV (9.4-12.3) fl Neut % (Auto) (34.0-71.1) % Lymph % (Auto) (19.3-51.7) % [place] % (Auto) (4.7-12.5) % Eos % (Auto) (0.7-5.8) Baso % (Auto) (0.1-1.2) % Neut # (Auto) (1.56-6.13) K/mm3 Lymph # (Auto) (1.18-3.74) K/mm3 [place] # (Auto) (0.24-0.36) K/mm3 Eos # (Auto) (0.04-0.36) K/mm3 Baso # (Auto) (0.01-0.08) K/mm3 Manual Slide Review Abnormal smear D-Dimer, Quantitative 0.35 (0.19-0.50) mg/L Sodium 142 (136-145) mEq/L Potassium 3.3 L (3.5-5.1) mEq/L Chloride 104 (98-107) mEq/L Carbon Dioxide 29 (21-32) mEq/L Anion Gap 12.3 (5-15) BUN 12 (7-18) mg/dL Creatinine 0.7 (0.55-1.02) mg/dL Est Cr Clr Drug Dosing 95.02 mL/min Estimated GFR (MDRD) > 60 (>60) mL/min BUN/Creatinine Ratio 17.1 (14-18) Glucose 132 H (70-99) mg/dL Calcium 8.2 L (8.5-10.1) mg/dL Total Bilirubin 0.3 (0.2-1.0) mg/dL AST 33 (15-37) U/L ALT 20 (14-59) U/L Alkaline Phosphatase 66 (46-116) U/L C-Reactive Protein 4.7 H* (<1.0) mg/dL Total Protein 7.1 (6.4-8.2) g/dl Albumin 2.6 L (3.4-5.0) g/dl Globulin 4.5 gm/dL Albumin/Globulin Ratio 0.6 L (1-2) 12/28/20 12/28/20 Range/Units 05:08 05:08 WBC 6.64 (3.98-10.04) K/mm3 RBC 4.70 (3.98-5.22) M/mm3 Hgb 13.5 (11.2-15.7) gm/dl Hct 41.0 (34.1-44.9) % MCV 87.2 (79.4-94.8) fl MCH 28.7 (25.6-32.2) pg MCHC 32.9 (32.2-35.5) g/dl RDW Std Deviation 41.2 (36.4-46.3) fL Plt Count 367 (182-369) K/mm3 MPV 9.6 (9.4-12.3) fl Neut % (Auto) 69.5 (34.0-71.1) % Lymph % (Auto) 20.6 (19.3-51.7) % [place] % (Auto) 9.3 (4.7-12.5) % Eos % (Auto) 0 L (0.7-5.8) Baso % (Auto) 0.3 (0.1-1.2) % Neut # (Auto) 4.61 (1.56-6.13) K/mm3 Lymph # (Auto) 1.37 (1.18-3.74) K/mm3 [place] # (Auto) 0.62 H (0.24-0.36) K/mm3 Eos # (Auto) 0.00 L (0.04-0.36) K/mm3 Baso # (Auto) 0.02 (0.01-0.08) K/mm3 Manual Slide Review Abnormal smear D-Dimer, Quantitative (0.19-0.50) mg/L Sodium 141 (136-145) mEq/L Potassium 3.7 (3.5-5.1) mEq/L Chloride 106 (98-107) mEq/L Carbon Dioxide 26 (21-32) mEq/L Anion Gap 12.7 (5-15) BUN 10 (7-18) mg/dL Creatinine 0.5 L (0.55-1.02) mg/dL Est Cr Clr Drug Dosing 133.03 mL/min Estimated GFR (MDRD) > 60 (>60) mL/min BUN/Creatinine Ratio 20.0 H (14-18) Glucose 131 H (70-99) mg/dL Calcium 7.6 L (8.5-10.1) mg/dL Total Bilirubin 0.3 (0.2-1.0) mg/dL AST 40 H (15-37) U/L ALT 29 (14-59) U/L Alkaline Phosphatase 65 (46-116) U/L C-Reactive Protein 3.1 H* (<1.0) mg/dL Total Protein 6.2 L (6.4-8.2) g/dl Albumin 2.4 L (3.4-5.0) g/dl Globulin 3.8 gm/dL Albumin/Globulin Ratio 0.6 L (1-2) Result Diagrams: 12/28/20 05:08 12/28/20 05:08 Clive Results Last 24 hrs: Microbiology 12/25/20 23:50 Urine Culture - Preliminary Urine Escherichia Coli Sepsis Event Note - Evaluation Sepsis Screening Result: No Definite Risk - Focused Exam Vital Signs: Vital Signs Temp Pulse Resp BP Pulse Ox Pulse Ox 12/28/20 06:20 96 12/28/20 05:16 36.6 C 62 20 93/67 96 12/28/20 01:54 36.8 C 68 20 122/94 H 96 12/27/20 21:16 93 L - Problem List & Annotations (1) Pneumonia due to COVID-19 virus SNOMED Code(s): 156912900878735154 Code(s): U07.1 - COVID-19; J12.82 - PNEUMONIA DUE TO CORONAVIRUS DISEASE 2018 Status: Acute Priority: High Current Visit: Yes (2) Respiratory failure with hypoxia SNOMED Code(s): 40735796686662384 Code(s): J96.91 - RESPIRATORY FAILURE, UNSPECIFIED WITH HYPOXIA Status: Acute Priority: High Current Visit: Yes Qualifiers: Chronicity: acute Qualified Code(s): J96.01 - Acute respiratory failure with hypoxia (3) Volume depletion SNOMED Code(s): 877620544 Code(s): E86.9 - VOLUME DEPLETION, UNSPECIFIED Status: Resolved Priority: High Current Visit: Yes (4) Gastroenteritis SNOMED Code(s): 84808621 Code(s): K52.9 - NONINFECTIVE GASTROENTERITIS AND COLITIS, UNSPECIFIED Status: Acute Priority: High Current Visit: Yes - Problem List Review Problem List Initiated/Reviewed/Updated: Yes - My Orders Last 24 Hours: My Active Orders 12/27/20 18:28 LORazepam [Ativan] 1 mg PO Q6H PRN 12/28/20 08:00 cefTRIAXone [Rocephin] 2 gm Sodium Chloride 0.9% [Normal Saline] 100 ml IV Q24H - Assessment Assessment:: Assessment - day of admission 12/25/2020 The patient is a 35-year-old lady who had been under treatment for COVID-19 symptoms and had continued to decline. The patient has been admitted as an inpatient. She has been started on remdesivir 100 mg IV starting December 26, 2020 and she has also been placed on dexamethasone. The dexamethasone 6 mg p.o. daily will start tomorrow. The patient also has been ordered to have p.o. Zofran if tolerated or IV Zofran if needed. The patient also has been kept on her home Phenergan and codeine cough syrup. The patient's oxygen saturations will be kept around 92% and the oxygen will be titrated. Repeat laboratory studies have been ordered for the morning. The patient will have regular diet as tolerated. The patient has been encouraged to ambulate. She will have DVT prophylaxis with the use of Lovenox 40 mg subcutaneously daily. The patient should be appropriate for discharge once discontinuation of remdesivir. 12/26/2020 35-year-old female who has known COVID-19 pneumonia presented to ED on 12/25/2020 with worsening symptoms, weakness, and essentially being bedridden. She was admitted and started on remdesivir and dexamethasone. She is also had nausea, vomiting, and diarrhea. Her nausea and vomiting have resolved since admission. She continues to have diarrhea. She is on her home Phenergan and codeine cough syrup. Incentive spirometry and Acapella have been added. Respiratory therapy is consulted. She states she is still very weak. She did show some clinical signs of dehydration and was placed on IV fluids. She has improved and these will be discontinued today. Zinc supplementation has been added. She is complaining of dysuria and UA was obtained and was essentially negative. He was noted to have 1+ protein, 2+ occult blood, 20-30 RBCs and moderate bacteria. hCG was checked and was negative. She has been encouraged to prone whenever able. She is currently off of oxygen with saturations in the very low 90s. Vital signs other flores remain good. For remain hospitalized for continued COVID-19 treatment. Will ordered urine culture and scheduled pyridium for dysuria. 12/27/2020 This is a 35-year-old female admitted to the floor for COVID-19 pneumonia symptoms. She had failed outpatient treatment. Overall she remains stable is. She states she feels about the same as she has. She is been requiring 1 L today and we really discussed importance of Acapella, incentive spirometry, proning, and remaining active in the room. Labs today show WBC of 8.50. Hemoglobin 14.4. Platelet 349,000. Neutrophils are 82.6%. D-dimer was 0.35. Sodium was 142. Potassium today is 3.2 will be supplemented. Given her prior gastroenteritis symptoms we will utilize IV supplementation. Chloride 104. C arbon dioxide 29. Anion gap 12.3. BUN is 12. Creatinine 0.7. GFR greater than 60. Glucose 132. Calcium 8.2. Bilirubin 0.3. AST is 33, ALT 20, alkaline phosphatase 66. CRP is down to 4.7. Protein 7.1. Albumin remains 2.6. Patient has been complaining of dysuria and UA reveals 1+ protein, 2+ occult blood, 20-30 RBCs, and moderate bacteria. Urine culture is ordered and pending. Patient was started on Pyridium yesterday. She continues to receive dexamethasone and remdesivir. We will continue this and work-up weaning her off of this oxygen. Length of stay likely 5 days total to complete remdesivir treatment. 12/28/2020 The patient is a 35-year-old lady who will continue on hospitalization secondary to COVID-19 pneumonia. The patient will have her oxygen titrated and her saturations will be kept around 92%. Her last dose of remdesivir should be for tomorrow. The patient likely will be appropriate for discharge after remdesivir completed. The patient also has E. coli urinary tract infection and sensitivities are currently pending. She is on ceftriaxone and this will be deescalated as necessary. DVT prophylaxis will continue with the use of Lovenox. She is to have her regular diet as tolerated. The patient has been encouraged and instructed in the use of incentive spirometer. Repeat laboratory studies have been ordered for the morning. It is expected that the patient should be appropriate for discharge tomorrow. - Plan Plan:: Gastroenteritis Pneumonia due to COVID-19 virus Respiratory failure with hypoxia Volume depletion, Resolved Diarrhea Nausea and vomiting, Resolved * Airborne/contact isolation * Dexamethasone day 07/10 * Remdesivir day 3/ * IS/Acapella * RT consult * O2 as needed to keep saturations 88-95% * Continue home Phenergan/codeine cough syrup * Continuous pulse oximetry * Telemetry * Monitor daily labs * PRN albuterol MDI * PRN Duonebs * Prone whenever able * No need for PT/OT at this time * Zinc supplementation * Vitamin D WNL * Antiemetics as ordered * Pain medications as ordered Hypokalemia * Supplement via IV supplementation given recent GI issues. * Monitor labs Anxiety * Situational * Offer encouragement * Consider Ativan PRN Dysuria * UA obtained and negative * Urine culture ordered * Daily azo scheduled TID for now Code status: Full Code PCP: None DVT prophylaxis: Lovenox Disposition: Patient mated to the medical floor on telemetry for management of COVID-19 symptoms. Likely discharge after 4 to 5 days of treatment.
[2020-12-28] MEDS: Albuterol 6.7 GM Inhaler INH PRN ×3 (08:14→20:43)
[2020-12-28] MEDS: cefTRIAXone 2 GM in Sodium Chloride 0.9% 100 ML IV SCH (09:30)
[2020-12-28] MEDS: Dexamethasone 4 MG Tab PO SCH (09:31)
[2020-12-28] MEDS: Phenazopyridine 95 MG Tab PO SCH ×3 (09:31→18:16)
[2020-12-28] MEDS: Enoxaparin 40 MG/0.4 ML Syringe SUBCUT SCH (09:31)
[2020-12-28] MEDS: Zinc Sulfate 220 MG Cap PO SCH (09:31)
[2020-12-28] MEDS: REMDESIVIR 100 MG in Sodium Chloride 0.9% 100 ML IV SCH (16:45)
[2020-12-28] MEDS: Temazepam 15 MG Cap PO PRN (21:34)
[2020-12-29] MEDS: Codeine/Promethazine 10-6.25 MG/5 ML Syrup 5 ML UD Cup PO PRN ×3 (05:08→19:56)
[2020-12-29] MEDS: Ondansetron 4 MG/2 ML SDV IV PRN ×2 (05:14→10:19)
[2020-12-29] MEDS: Zinc Sulfate 220 MG Cap PO SCH (08:38)
[2020-12-29] MEDS: Dexamethasone 4 MG Tab PO SCH (08:38)
[2020-12-29] MEDS: Phenazopyridine 95 MG Tab PO SCH ×3 (08:38→18:06)
[2020-12-29] MEDS: Enoxaparin 40 MG/0.4 ML Syringe SUBCUT SCH (08:39)
[2020-12-29] MEDS: cefTRIAXone 2 GM in Sodium Chloride 0.9% 100 ML IV SCH (08:39)
[2020-12-29] MEDS: Albuterol 6.7 GM Inhaler INH PRN ×2 (09:01→14:12)
--- NOTE | 2020-12-29 10:02 | PCM.DCSUM1 ---
<Nathaniel Bella - Last Filed: 12/30/20 12:50> Discharge Summary - Hospital Course HPI Initial Comments: The patient is a 35-year-old lady who had presented to the emergency department complaining of shortness of breath and worsening symptoms of COVID-19 pneumonia. The patient reports that she had been diagnosed with COVID-19 2 days prior to presentation. Initially, she had been placed on Phenergan with codeine as well as Tessalon Perles and oral Zofran. The patient reports that she has had nausea and vomiting along with diarrhea. She also reports that she has had fever and chills. The patient currently lives alone and she feels like she is just not getting any better. The patient does have a cough which is exacerbated by deep breathing. The patient also reports that she has been feeling weak and dizzy. The patient is not taking any medications and she has no significant health history. Diagnosis: Stroke: No - Discharge Data Discharge Date: 12/30/20 (Admit date: 12/25/2020) Discharge Disposition: Home, Self-Care 01 Condition: Good - Referral to Home Health Primary Care Physician: PCP None - Discharge Diagnosis/Problem(s) (1) Gastroenteritis SNOMED Code(s): 40685130 ICD Code: K52.9 - NONINFECTIVE GASTROENTERITIS AND COLITIS, UNSPECIFIED Status: Resolved Priority: High (2) Pneumonia due to COVID-19 virus SNOMED Code(s): 365608268516061359 ICD Code: U07.1 - COVID-19; J12.82 - PNEUMONIA DUE TO CORONAVIRUS DISEASE 2019 Status: Acute Priority: High (3) Respiratory failure with hypoxia SNOMED Code(s): 07555279670446127 ICD Code: J96.91 - RESPIRATORY FAILURE, UNSPECIFIED WITH HYPOXIA Status: Resolved Priority: High Qualifiers: Chronicity: acute Qualified Code(s): J96.01 - Acute respiratory failure with hypoxia (4) Volume depletion SNOMED Code(s): 888563000 ICD Code: E86.9 - VOLUME DEPLETION, UNSPECIFIED Status: Resolved Priority: High (5) Diarrhea SNOMED Code(s): 83588186 ICD Code: R19.7 - DIARRHEA, UNSPECIFIED Status: Acute Priority: High Qualifiers: Diarrhea type: unspecified type Qualified Code(s): R19.7 - Diarrhea, unspecified (6) Nausea and vomiting SNOMED Code(s): 41615327 ICD Code: R11.2 - NAUSEA WITH VOMITING, UNSPECIFIED Status: Resolved Priority: High Qualifiers: Vomiting type: unspecified Vomiting Intractability: unspecified Qualified Code(s): R11.2 - Nausea with vomiting, unspecified (7) Anxiety SNOMED Code(s): 31233650 ICD Code: F41.9 - ANXIETY DISORDER, UNSPECIFIED Status: Acute Priority: High (8) Dysuria SNOMED Code(s): 18078021 ICD Code: R30.0 - DYSURIA Status: Acute Priority: Medium (9) Hypokalemia SNOMED Code(s): 81128726 ICD Code: E87.6 - HYPOKALEMIA Status: Resolved Priority: High (10) UTI (urinary tract infection) SNOMED Code(s): 07240671 ICD Code: N39.0 - URINARY TRACT INFECTION, SITE NOT SPECIFIED Status: Acute Priority: High Qualifiers: Urinary tract infection type: acute cystitis Hematuria presence: with hematuria Qualified Code(s): N30.01 - Acute cystitis with hematuria - Patient Summary/Data Consults: Consultations 12/26/20 10:22 Consult to Respiratory Therapy [Respiratory Care Assess and Treatment] [CONS] Routine Labs Pending at D/C: None Recommended Follow-up Testing/Procedures: Follow-up with primary care provider within 7 to 10 days of discharge, sooner if needed. * Recommend recheck CBC, CMP, and magnesium at follow-up. * Patient discharged on 6 mg dexamethasone, zinc supplementation, and as needed albuterol inhaler for COVID-19 pneumonia. * Patient instructed to continue to quarantine/isolate for 20 days from symptom onset. * Patient diagnosed with urinary tract infection. Pansensitive E. coli. Placed on 250 mg Keflex every 6 hours. * All prior home medications continued at discharge. Hospital Course: This is a 33-year-old female who was seen in our ED on 12/23/2020 with diarrhea, chills, body aches, fever, and dehydration. She reports symptoms began on 12/17/2020 and she was diagnosed with Covid later in the day. She was having diarrhea and significant vomiting. Chest x-ray was obtained and showed bilateral infiltrates. She was discharged home on Imodium, Zofran, Tessalon Perles, and an albuterol inhaler, all as needed. Unfortunately she returned to our ER on the with similar symptoms. She reports she has been basically bedridden since discharge. Chest x-ray is obtained showing increased density on both sides of the chest which had minimally worsened from prior exam and were felt to be consistent with Covid pneumonia. IV rehydration was initiated she was started on remdesivir and dexamethasone, completing 5 days of each. She did briefly require up to 2.5 L of oxygen however she has been weaned off since. She does have desaturations when she has coughing episodes. Patient was complaining of dysuria shortly after admission and urine was checked which was positive for greater than 100,000 CFU's of pansensitive E. coli. She was started on Rocephin IV 2 g. She will be transitioned to Keflex 250 mg p.o. every 6 hours for 2 more days at discharge. She will given 4 more days of of Maxidone tablets, a 2 puffs every 2 hours as needed albuterol inhaler, and 220 mg p.o. daily zinc supplementation. Her prior p.o. cough medicines have been continued at discharge. She was instructed to continue to utilize her incentive spirometry and Acapella for 1 to 2 weeks or until symptoms resolve. She was instructed to return to the emergency room should symptoms return or worsen. She was discharged home today. She was instructed to continue to isolate/quarantine for a total of 20 days from symptom onset. Recommend follow- up with primary care provider within 7 to 10 days of discharge, sooner if needed. Recommend repeat CBC, CMP, and magnesium in follow-up. Consider repeat chest x-ray. - Patient Instructions Diet: Usual Diet as Tolerated Activity: As Tolerated Driving: Do Not Drive (Until feeling better ) Showering/Bathing: May Shower Notify Provider of: Fever, Increased Pain, Nausea and/or Vomiting Other/Special Instructions: Follow-up with primary care provider within 7 to 10 days of discharge, sooner if needed. Resume home medications as directed. You were found to have a urinary tract infection. You will be prescribed an antibiotic called Keflex. You should take this every 6 hours with your first dose tomorrow, 12/31/2020. Take this until complete even if feeling 100% better. You were Covid positive. You should continue to isolate/quarantine for 20 days from symptom onset. You will be prescribed and as needed albuterol inhaler. Take this as needed for shortness of breath. You were also given a zinc supplementation tablet. Some studies have shown this may help with Covid symptoms. Please take this and discuss continuation with primary care provider. You will be prescribed a 6 mg steroid dose. You should take this daily until complete. Continue to utilize your incentive spirometer (clear/blue device you inhale through) and Acapella (green tube you blow through) for 1 to 2 weeks or until symptoms resolve. Take it easy. Stay active but rest when needed. It will take quite some time until you feel better. Should symptoms return or worsen contact primary care provider or return to the emergency room. - Discharge Plan *PRESCRIPTION DRUG MONITORING PROGRAM REVIEWED*: No *COPY OF PRESCRIPTION DRUG MONITORING REPORT IN PATIENT CARMELA: No Prescriptions/Med Rec: dexAMETHasone [Dexamethasone] 6 mg PO DAILY #6 tablet cephALEXin [Keflex] 250 mg PO Q6H #8 cap Albuterol [Proventil HFA] 2 puff INH Q2H PRN #1 inhaler PRN Reason: sob/wheezing Zinc Sulfate [Zincate] 220 mg PO DAILY #20 cap Home Medications: Home Meds Codeine/Promethazine HCl [Promethazine-Codeine Syrup] 5 ml PO Q4H PRN 12/23/20 [History] Benzonatate 100 mg PO TID PRN #12 capsule 12/24/20 [Rx] ondansetron HCL [Ondansetron HCl] 4 mg PO Q6H PRN #15 tablet 12/24/20 [Rx] Albuterol [Proventil HFA] 2 puff INH Q2H PRN #1 inhaler 12/30/20 [Rx] Zinc Sulfate [Zincate] 220 mg PO DAILY #20 cap 12/30/20 [Rx] cephALEXin [Keflex] 250 mg PO Q6H #8 cap 12/30/20 [Rx] dexAMETHasone [Dexamethasone] 6 mg PO DAILY #6 tablet 12/30/20 [Rx] Oxygen Therapy Mode: Room Air Patient Handouts: COVID-19 Frequently Asked Questions, 10 Things You Can Do to Manage Your COVID-19 Symptoms at Home - CDC (11/01/2019), Community-Acquired Pneumonia, Adult, [id number], Sepsis, Self Care, Adult Forms: ED Department Discharge Referrals: Maryanne Leyva [employer] [Nurse Practitioner] - 01/07/21 9:30 am (Please arrive by 9:00 am to register and bring any insurance cards and photo ID) - Discharge Summary/Plan Comment DC Time >30 min.: Yes Total # of Minutes for Discharge Time: 45 - General Info Date of Service: 12/30/20 Admission Dx/Problem (Free Text: COVID-19 pneumonia with gastroenteritis Functional Status: Reports: Pain Controlled, Tolerating Diet, Ambulating, Urinating, Incentive Spirometry, Other (Acapella ). Denies: New Symptoms - Review of Systems General: Reports: Weakness (improving ), Fatigue (improving ). Denies: Fever, Malaise, Chills HEENT: Reports: No Symptoms. Denies: Headaches, Visual Changes Pulmonary: Reports: Shortness of Breath, Cough. Denies: Wheezing Cardiovascular: Reports: No Symptoms, Dyspnea on Exertion. Denies: Chest Pain, Palpitations, Edema Gastrointestinal: Reports: Diarrhea. Denies: Abdominal Pain, Constipation, Nausea, Vomiting Genitourinary: Reports: Dysuria (improving ) Musculoskeletal: Reports: No Symptoms Skin: Reports: No Symptoms. Denies: Cyanosis Neurological: Reports: No Symptoms. Denies: Confusion, Headache, Numbness, Pre- Existing Deficit, Syncope, Tingling, Difficulty Walking, Weakness, Gait Disturbance Psychiatric: Reports: No Symptoms - Patient Data Vitals - Most Recent: Last Vital Signs Temp 97.9 F 12/30/20 07:55 Pulse 62 12/30/20 07:55 Resp 18 12/30/20 07:55 BP 110/72 12/30/20 07:55 Pulse Ox 95 12/30/20 07:55 I&O - Last 24 hours: Intake & Output 12/29/20 12/30/20 12/30/20 22:59 06:59 14:59 Intake Total 550 400 Balance 550 400 Lab Results - Last 24 hrs: Laboratory Results - last 24 hr 12/30/20 12/30/20 Range/Units 05:24 05:24 WBC 6.09 (3.98-10.04) K/mm3 RBC 5.05 (3.98-5.22) M/mm3 Hgb 14.4 (11.2-15.7) gm/dl Hct 43.6 (34.1-44.9) % MCV 86.3 (79.4-94.8) fl MCH 28.5 (25.6-32.2) pg MCHC 33.0 (32.2-35.5) g/dl RDW Std Deviation 40.7 (36.4-46.3) fL Plt Count 519 H D (182-369) K/mm3 MPV 9.1 L (9.4-12.3) fl Neut % (Auto) 61.9 (34.0-71.1) % Lymph % (Auto) 25.5 (19.3-51.7) % [place] % (Auto) 11.0 (4.7-12.5) % Eos % (Auto) 0.3 L (0.7-5.8) Baso % (Auto) 0.8 (0.1-1.2) % Neut # (Auto) 3.77 (1.56-6.13) K/mm3 Lymph # (Auto) 1.55 (1.18-3.74) K/mm3 [place] # (Auto) 0.67 H (0.24-0.36) K/mm3 Eos # (Auto) 0.02 L (0.04-0.36) K/mm3 Baso # (Auto) 0.05 (0.01-0.08) K/mm3 Manual Slide Review Abnormal smear Sodium 143 (136-145) mEq/L Potassium 3.4 L (3.5-5.1) mEq/L Chloride 106 (98-107) mEq/L Carbon Dioxide 26 (21-32) mEq/L Anion Gap 14.4 (5-15) BUN 13 (7-18) mg/dL Creatinine 0.7 (0.55-1.02) mg/dL Est Cr Clr Drug Dosing 95.02 mL/min Estimated GFR (MDRD) > 60 (>60) mL/min BUN/Creatinine Ratio 18.6 H (14-18) Glucose 119 H (70-99) mg/dL Calcium 8.0 L (8.5-10.1) mg/dL Magnesium 2.1 (1.8-2.4) mg/dL C-Reactive Protein 3.3 H* (<1.0) mg/dL SHALINI Results - Last 24 hrs: Microbiology 12/25/20 23:50 Urine Culture - Final Urine Escherichia Coli Med Orders - Current: Current Medications Acetaminophen (Acetaminophen 325 Mg Tab) 650 mg PO Q4H PRN PRN Reason: Pain (Mild 1-3)/fever Last Admin: 12/30/20 03:04 Dose: 650 mg Documented by: Albuterol (Albuterol 6.7 Gm Inhaler) 0 gm INH Q4H PRN PRN Reason: sob/wheezing Last Admin: 12/29/20 14:12 Dose: 2 puff Documented by: Albuterol/Ipratropium (Albuterol/Ipratropium 3.0-0.5 Mg/3 Ml Neb Soln) 3 ml NEB Q4H PRN PRN Reason: Shortness Of Breath/wheezing Last Admin: 12/26/20 05:20 Dose: 3 ml Documented by: Dexamethasone (Dexamethasone 4 Mg Tab) 6 mg PO DAILY [facility] Last Admin: 12/29/20 08:38 Dose: 6 mg Documented by: Docusate Sodium (Docusate Sodium 100 Mg Cap) 100 mg PO BID PRN PRN Reason: Constipation Enoxaparin Sodium (Enoxaparin 40 Mg/0.4 Ml Syringe) 40 mg SUBCUT DAILY [facility] Last Admin: 12/29/20 08:39 Dose: 40 mg Documented by: Ceftriaxone Sodium 2 gm/ (Sodium Chloride) 100 mls @ 200 mls/hr IV Q24H [facility] Last Admin: 12/29/20 08:39 Dose: 200 mls/hr Documented by: Lorazepam (Lorazepam 1 Mg Tab) 1 mg PO Q6H PRN PRN Reason: Anxiety Last Admin: 12/29/20 10:22 Dose: 1 mg Documented by: Ondansetron HCl (Ondansetron 4 Mg Tab.Dis) 4 mg PO Q4H PRN PRN Reason: nausea, able to take PO Last Admin: 12/27/20 06:33 Dose: 4 mg Documented by: Ondansetron HCl (Ondansetron 4 Mg/2 Ml Sdv) 4 mg IV Q4H PRN PRN Reason: Nausea/Vomiting Last Admin: 12/29/20 10:19 Dose: 4 mg Documented by: Oxycodone HCl (Oxycodone 5 Mg Tab) 5 mg PO Q4H PRN PRN Reason: Pain (moderate 4-6) Phenazopyridine HCl (Phenazopyridine 95 Mg Tab) 95 mg PO TIDPC [facility] Last Admin: 12/29/20 18:06 Dose: 95 mg Documented by: Potassium Chloride (Potassium Chloride 20 Meq Tab.Er) 40 meq PO ONETIME ONE Stop: 12/30/20 09:01 Promethazine HCl/Codeine (Codeine/Promethazine 10-6.25 Mg/5 Ml Syrup 5 Ml Ud Cup) 5 ml PO Q4H PRN PRN Reason: Cough Last Admin: 12/30/20 03:06 Dose: 5 ml Documented by: Temazepam (Temazepam 15 Mg Cap) 15 mg PO BEDTIME PRN PRN Reason: Sleep Last Admin: 12/29/20 19:52 Dose: 15 mg Documented by: Zinc Sulfate (Zinc Sulfate 220 Mg Cap) 220 mg PO DAILY [facility] Last Admin: 12/29/20 08:38 Dose: 220 mg Documented by: Discontinued Medications Albuterol (Albuterol 6.7 Gm Inhaler) Confirm Administered Dose 6.7 gm INH .STK- MED ONE Stop: 12/26/20 08:37 Last Admin: 12/26/20 08:41 Dose: Not Given Documented by: Dexamethasone (Dexamethasone 4 Mg/Ml 5 Ml Mdv) 6 mg IV ONETIME ONE Stop: 12/25/20 16:55 Last Admin: 12/25/20 17:43 Dose: Not Given Documented by: Dextrose/Lactated Ringer's (Dextrose 5%-Lactated Ringers) 1,000 mls @ 250 mls/hr IV ASDIRECTED [facility] Last Admin: 12/25/20 17:44 Dose: 250 mls/hr Documented by: Remdesivir 200 mg/ Sodium (Chloride) 250 mls @ 250 mls/hr IV ONETIME ONE Stop: 12/25/20 16:52 Last Admin: 12/25/20 17:47 Dose: 250 mls/hr Documented by: Remdesivir (Remdesivir) Confirm Administered Dose 100 mls @ as directed .ROUTE .STK-MED ONE Stop: 12/25/20 17:15 Last Admin: 12/25/20 19:24 Dose: Not Given Documented by: Sodium Chloride (Normal Saline) 1,000 mls @ 125 mls/hr IV ASDIRECTED [facility] Last Admin: 12/26/20 05:03 Dose: 125 mls/hr Documented by: Remdesivir 100 mg/ Sodium (Chloride) 100 mls @ 100 mls/hr IV Q24H [facility] Stop: 12/29/20 18:29 Last Admin: 12/29/20 18:06 Dose: 100 mls/hr Documented by: Potassium Chloride 10 meq/ (Premix) 100 mls @ 100 mls/hr IV Q1H [facility] Stop: 12/25/20 22:59 Last Admin: 12/26/20 00:33 Dose: 100 mls/hr Documented by: Potassium Chloride 10 meq/ (Premix) 100 mls @ 100 mls/hr IV Q1H [facility] Stop: 12/27/20 14:29 Last Admin: 12/27/20 14:53 Dose: Not Given Documented by: Sodium Chloride (Normal Saline) 1,000 mls @ 50 mls/hr IV ASDIRECTED [facility] Last Admin: 12/27/20 13:51 Dose: 50 mls/hr Documented by: Potassium Chloride 10 meq/ (Premix) 100 mls @ 25 mls/hr IV Q4H [facility] Stop: 12/28/20 05:59 Last Admin: 12/28/20 01:52 Dose: 25 mls/hr Documented by: Metoclopramide HCl (Metoclopramide 10 Mg/2 Ml Sdv) 7.5 mg IVPUSH ONETIME ONE Stop: 12/25/20 16:47 Last Admin: 12/25/20 17:45 Dose: Not Given Documented by: Ondansetron HCl (Ondansetron 4 Mg/2 Ml Sdv) 4 mg IVPUSH ONETIME ONE Stop: 12/25/20 18:09 Last Admin: 12/25/20 18:17 Dose: 4 mg Documented by: Potassium Chloride (Potassium Chloride 20 Meq Tab.Er) 40 meq PO ONETIME ONE Stop: 12/29/20 10:34 Last Admin: 12/29/20 10:43 Dose: 40 meq Documented by: Promethazine HCl/Codeine (Codeine/Promethazine 10-6.25 Mg/5 Ml Syrup 5 Ml Ud Cup) 5 ml PO ASDIRECTED PRN PRN Reason: Cough Last Admin: 12/26/20 08:10 Dose: 5 ml Documented by: - Exam Quality Assessment: Reports: DVT Prophylaxis. Denies: Supplemental Oxygen General: Reports: Alert, Oriented, Cooperative, No Acute Distress, Other HEENT: Reports: Pupils Reactive, Mucous Membr. Moist/[place]ck: Reports: Supple, Trachea Midline Lungs: Reports: Normal Respiratory Effort, Decreased Breath Sounds, Crackles (bibasilar ). Denies: Rhonchi, Wheezing Cardiovascular: Reports: Regular Rate, Regular Rhythm GI/Abdominal Exam: No: Normal Bowel Sounds, Soft, Non-Tender, No Distention (Female) Exam: Deferred Rectal (Female) Exam: Deferred Back Exam: Reports: Normal Inspection, Full Range of Motion Extremities: Normal Inspection, Normal Range of Motion, Non-Tender, No Pedal Edema, Normal Capillary Refill Skin: Reports: Warm, Dry, Intact Neurological: Reports: No New Focal Deficit Psy/Mental Status: Reports: Alert, Normal Affect, Normal Mood <Omid Anderson - Last Filed: 12/30/20 18:13> Discharge Summary - Referral to Home Health Primary Care Physician: PCP None - Discharge Diagnosis/Problem(s) (1) Pneumonia due to COVID-19 virus SNOMED Code(s): 201827782864662936 ICD Code: U07.1 - COVID-19; J12.82 - PNEUMONIA DUE TO CORONAVIRUS DISEASE 2019 Status: Acute Priority: High (2) Respiratory failure with hypoxia SNOMED Code(s): 89296340228404688 ICD Code: J96.91 - RESPIRATORY FAILURE, UNSPECIFIED WITH HYPOXIA Status: Resolved Priority: High Qualifiers: Chronicity: acute Qualified Code(s): J96.01 - Acute respiratory failure with hypoxia (3) Volume depletion SNOMED Code(s): 043106923 ICD Code: E86.9 - VOLUME DEPLETION, UNSPECIFIED Status: Resolved Priority: High (4) Gastroenteritis SNOMED Code(s): 80966070 ICD Code: K52.9 - NONINFECTIVE GASTROENTERITIS AND COLITIS, UNSPECIFIED Status: Resolved Priority: High - Patient Summary/Data Consults: Consultations 12/26/20 10:22 Consult to Respiratory Therapy [Respiratory Care Assess and Treatment] [CONS] Routine - Discharge Plan *PRESCRIPTION DRUG MONITORING PROGRAM REVIEWED*: Not Applicable *COPY OF PRESCRIPTION DRUG MONITORING REPORT IN PATIENT CARMELA: Not Applicable - Patient Data Vitals - Most Recent: Last Vital Signs Temp 36.6 C 12/29/20 07:51 Pulse 71 12/29/20 07:51 Resp 20 12/29/20 07:51 BP 97/58 L 12/29/20 07:51 Pulse Ox 93 L 12/29/20 09:03 Weight - Most Recent: 83.189 kg I&O - Last 24 hours: Intake & Output 12/28/20 12/29/20 12/29/20 22:59 06:59 14:59 Intake Total 740 800 Balance 740 800 Lab Results - Last 24 hrs: Laboratory Results - last 24 hr 12/29/20 12/29/20 Range/Units 04:58 04:58 WBC 6.74 (3.98-10.04) K/mm3 RBC 5.30 H (3.98-5.22) M/mm3 Hgb 15.0 D (11.2-15.7) gm/dl Hct 45.8 H (34.1-44.9) % MCV 86.4 (79.4-94.8) fl MCH 28.3 (25.6-32.2) pg MCHC 32.8 (32.2-35.5) g/dl RDW Std Deviation 40.9 (36.4-46.3) fL Plt Count 422 H (182-369) K/mm3 MPV 9.1 L (9.4-12.3) fl Neut % (Auto) 63.9 (34.0-71.1) % Lymph % (Auto) 26.9 (19.3-51.7) % [place] % (Auto) 8.3 (4.7-12.5) % Eos % (Auto) 0.1 L (0.7-5.8) Baso % (Auto) 0.4 (0.1-1.2) % Neut # (Auto) 4.30 (1.56-6.13) K/mm3 Lymph # (Auto) 1.81 (1.18-3.74) K/mm3 [place] # (Auto) 0.56 H (0.24-0.36) K/mm3 Eos # (Auto) 0.01 L (0.04-0.36) K/mm3 Baso # (Auto) 0.03 (0.01-0.08) K/mm3 Manual Slide Review Abnormal smear Sodium 142 (136-145) mEq/L Potassium 3.3 L (3.5-5.1) mEq/L Chloride 104 (98-107) mEq/L Carbon Dioxide 30 (21-32) mEq/L Anion Gap 11.3 (5-15) BUN 13 (7-18) mg/dL Creatinine 0.6 (0.55-1.02) mg/dL Est Cr Clr Drug Dosing 110.86 mL/min Estimated GFR (MDRD) > 60 (>60) mL/min BUN/Creatinine Ratio 21.7 H (14-18) Glucose 100 H (70-99) mg/dL Calcium 8.1 L (8.5-10.1) mg/dL Total Bilirubin 0.4 (0.2-1.0) mg/dL AST 53 H (15-37) U/L ALT 44 (14-59) U/L Alkaline Phosphatase 74 (46-116) U/L C-Reactive Protein 2.0 H* (<1.0) mg/dL Total Protein 6.8 (6.4-8.2) g/dl Albumin 2.6 L (3.4-5.0) g/dl Globulin 4.2 gm/dL Albumin/Globulin Ratio 0.6 L (1-2) SHALINI Results - Last 24 hrs: Microbiology 12/25/20 23:50 Urine Culture - Preliminary Urine Escherichia Coli Med Orders - Current: Current Medications Acetaminophen (Acetaminophen 325 Mg Tab) 650 mg PO Q4H PRN PRN Reason: Pain (Mild 1-3)/fever Last Admin: 12/27/20 08:19 Dose: 650 mg Documented by: Albuterol (Albuterol 6.7 Gm Inhaler) 0 gm INH Q4H PRN PRN Reason: sob/wheezing Last Admin: 12/29/20 09:01 Dose: 2 puff Documented by: Albuterol/Ipratropium (Albuterol/Ipratropium 3.0-0.5 Mg/3 Ml Neb Soln) 3 ml NEB Q4H PRN PRN Reason: Shortness Of Breath/wheezing Last Admin: 12/26/20 05:20 Dose: 3 ml Documented by: Dexamethasone (Dexamethasone 4 Mg Tab) 6 mg PO DAILY [facility] Last Admin: 12/29/20 08:38 Dose: 6 mg Documented by: Docusate Sodium (Docusate Sodium 100 Mg Cap) 100 mg PO BID PRN PRN Reason: Constipation Enoxaparin Sodium (Enoxaparin 40 Mg/0.4 Ml Syringe) 40 mg SUBCUT DAILY [facility] Last Admin: 12/29/20 08:39 Dose: 40 mg Documented by: Remdesivir 100 mg/ Sodium (Chloride) 100 mls @ 100 mls/hr IV Q24H [facility] Stop: 12/29/20 18:29 Last Admin: 12/28/20 16:45 Dose: 100 mls/hr Documented by: Ceftriaxone Sodium 2 gm/ (Sodium Chloride) 100 mls @ 200 mls/hr IV Q24H [facility] Last Admin: 12/29/20 08:39 Dose: 200 mls/hr Documented by: Lorazepam (Lorazepam 1 Mg Tab) 1 mg PO Q6H PRN PRN Reason: Anxiety Last Admin: 12/27/20 19:30 Dose: 1 mg Documented by: Ondansetron HCl (Ondansetron 4 Mg Tab.Dis) 4 mg PO Q4H PRN PRN Reason: nausea, able to take PO Last Admin: 12/27/20 06:33 Dose: 4 mg Documented by: Ondansetron HCl (Ondansetron 4 Mg/2 Ml Sdv) 4 mg IV Q4H PRN PRN Reason: Nausea/Vomiting Last Admin: 12/29/20 05:14 Dose: 4 mg Documented by: Oxycodone HCl (Oxycodone 5 Mg Tab) 5 mg PO Q4H PRN PRN Reason: Pain (moderate 4-6) Phenazopyridine HCl (Phenazopyridine 95 Mg Tab) 95 mg PO TIDPC [facility] Last Admin: 12/29/20 08:38 Dose: 95 mg Documented by: Promethazine HCl/Codeine (Codeine/Promethazine 10-6.25 Mg/5 Ml Syrup 5 Ml Ud Cup) 5 ml PO Q4H PRN PRN Reason: Cough Last Admin: 12/29/20 08:39 Dose: 5 ml Documented by: Temazepam (Temazepam 15 Mg Cap) 15 mg PO BEDTIME PRN PRN Reason: Sleep Last Admin: 12/28/20 21:34 Dose: 15 mg Documented by: Zinc Sulfate (Zinc Sulfate 220 Mg Cap) 220 mg PO DAILY [facility] Last Admin: 12/29/20 08:38 Dose: 220 mg Documented by: Discontinued Medications Albuterol (Albuterol 6.7 Gm Inhaler) Confirm Administered Dose 6.7 gm INH .STK- MED ONE Stop: 12/26/20 08:37 Last Admin: 12/26/20 08:41 Dose: Not Given Documented by: Dexamethasone (Dexamethasone 4 Mg/Ml 5 Ml Mdv) 6 mg IV ONETIME ONE Stop: 12/25/20 16:55 Last Admin: 12/25/20 17:43 Dose: Not Given Documented by: Dextrose/Lactated Ringer's (Dextrose 5%-Lactated Ringers) 1,000 mls @ 250 mls/hr IV ASDIRECTED [facility] Last Admin: 12/25/20 17:44 Dose: 250 mls/hr Documented by: Remdesivir 200 mg/ Sodium (Chloride) 250 mls @ 250 mls/hr IV ONETIME ONE Stop: 12/25/20 16:52 Last Admin: 12/25/20 17:47 Dose: 250 mls/hr Documented by: Remdesivir (Remdesivir) Confirm Administered Dose 100 mls @ as directed .ROUTE .STK-MED ONE Stop: 12/25/20 17:15 Last Admin: 12/25/20 19:24 Dose: Not Given Documented by: Sodium Chloride (Normal Saline) 1,000 mls @ 125 mls/hr IV ASDIRECTED [facility] Last Admin: 12/26/20 05:03 Dose: 125 mls/hr Documented by: Potassium Chloride 10 meq/ (Premix) 100 mls @ 100 mls/hr IV Q1H [facility] Stop: 12/25/20 22:59 Last Admin: 12/26/20 00:33 Dose: 100 mls/hr Documented by: Potassium Chloride 10 meq/ (Premix) 100 mls @ 100 mls/hr IV Q1H [facility] Stop: 12/27/20 14:29 Last Admin: 12/27/20 14:53 Dose: Not Given Documented by: Sodium Chloride (Normal Saline) 1,000 mls @ 50 mls/hr IV ASDIRECTED [facility] Last Admin: 12/27/20 13:51 Dose: 50 mls/hr Documented by: Potassium Chloride 10 meq/ (Premix) 100 mls @ 25 mls/hr IV Q4H [facility] Stop: 12/28/20 05:59 Last Admin: 12/28/20 01:52 Dose: 25 mls/hr Documented by: Metoclopramide HCl (Metoclopramide 10 Mg/2 Ml Sdv) 7.5 mg IVPUSH ONETIME ONE Stop: 12/25/20 16:47 Last Admin: 12/25/20 17:45 Dose: Not Given Documented by: Ondansetron HCl (Ondansetron 4 Mg/2 Ml Sdv) 4 mg IVPUSH ONETIME ONE Stop: 12/25/20 18:09 Last Admin: 12/25/20 18:17 Dose: 4 mg Documented by: Promethazine HCl/Codeine (Codeine/Promethazine 10-6.25 Mg/5 Ml Syrup 5 Ml Ud Cup) 5 ml PO ASDIRECTED PRN PRN Reason: Cough Last Admin: 12/26/20 08:10 Dose: 5 ml Documented by: - Free Text/Narrative Note: I have seen and examined the patient independently of Nathaniel Bella PA-C and have discussed the case with him. I have reviewed and agree with the orders and plan of care outlined by him. Please see orders.
--- NOTE | 2020-12-29 10:12 | PCM.PN ---
- General Info Date of Service: 12/29/20 Admission Dx/Problem (Free Text): COVID-19 pneumonia with gastroenteritis Subjective Update: She is a 35-year-old lady who had been admitted as an inpatient to acute hospitalization due to COVID-19 pneumonia on December 25, 2020. The patient will complete her remdesivir this evening. The patient says that she has been feeling weak and fatigued. She has had some nausea. The patient also has been desaturating when off of oxygen and moving. No new pain. She has been tolerating her diet. It was anticipated that the patient may be able to go home today however tomorrow would be a better option. Functional Status: Reports: Pain Controlled, Tolerating Diet - Review of Systems General: Reports: Weakness, Fatigue HEENT: Reports: No Symptoms Pulmonary: Reports: Shortness of Breath, Cough Cardiovascular: Reports: No Symptoms Gastrointestinal: Reports: No Symptoms Genitourinary: Reports: No Symptoms Musculoskeletal: Reports: No Symptoms Skin: Reports: No Symptoms Neurological: Reports: No Symptoms Psychiatric: Reports: No Symptoms - Patient Data Vitals - Most Recent: Last Vital Signs Temp 36.6 C 12/29/20 07:51 Pulse 71 12/29/20 07:51 Resp 20 12/29/20 07:51 BP 97/58 L 12/29/20 07:51 Pulse Ox 93 L 12/29/20 09:03 Weight - Most Recent: 83.189 kg I&O - Last 24 Hours: Intake & Output 12/28/20 12/29/20 12/29/20 22:59 06:59 14:59 Intake Total 740 800 Balance 740 800 Lab Results Last 24 Hours: Laboratory Results - last 24 hr 12/29/20 12/29/20 Range/Units 04:58 04:58 WBC 6.74 (3.98-10.04) K/mm3 RBC 5.30 H (3.98-5.22) M/mm3 Hgb 15.0 D (11.2-15.7) gm/dl Hct 45.8 H (34.1-44.9) % MCV 86.4 (79.4-94.8) fl MCH 28.3 (25.6-32.2) pg MCHC 32.8 (32.2-35.5) g/dl RDW Std Deviation 40.9 (36.4-46.3) fL Plt Count 422 H (182-369) K/mm3 MPV 9.1 L (9.4-12.3) fl Neut % (Auto) 63.9 (34.0-71.1) % Lymph % (Auto) 26.9 (19.3-51.7) % [place] % (Auto) 8.3 (4.7-12.5) % Eos % (Auto) 0.1 L (0.7-5.8) Baso % (Auto) 0.4 (0.1-1.2) % Neut # (Auto) 4.30 (1.56-6.13) K/mm3 Lymph # (Auto) 1.81 (1.18-3.74) K/mm3 [place] # (Auto) 0.56 H (0.24-0.36) K/mm3 Eos # (Auto) 0.01 L (0.04-0.36) K/mm3 Baso # (Auto) 0.03 (0.01-0.08) K/mm3 Manual Slide Review Abnormal smear Sodium 142 (136-145) mEq/L Potassium 3.3 L (3.5-5.1) mEq/L Chloride 104 (98-107) mEq/L Carbon Dioxide 30 (21-32) mEq/L Anion Gap 11.3 (5-15) BUN 13 (7-18) mg/dL Creatinine 0.6 (0.55-1.02) mg/dL Est Cr Clr Drug Dosing 110.86 mL/min Estimated GFR (MDRD) > 60 (>60) mL/min BUN/Creatinine Ratio 21.7 H (14-18) Glucose 100 H (70-99) mg/dL Calcium 8.1 L (8.5-10.1) mg/dL Total Bilirubin 0.4 (0.2-1.0) mg/dL AST 53 H (15-37) U/L ALT 44 (14-59) U/L Alkaline Phosphatase 74 (46-116) U/L C-Reactive Protein 2.0 H* (<1.0) mg/dL Total Protein 6.8 (6.4-8.2) g/dl Albumin 2.6 L (3.4-5.0) g/dl Globulin 4.2 gm/dL Albumin/Globulin Ratio 0.6 L (1-2) Clive Results Last 24 Hours: Microbiology 12/25/20 23:50 Urine Culture - Preliminary Urine Escherichia Coli Med Orders - Current: Current Medications Acetaminophen (Acetaminophen 325 Mg Tab) 650 mg PO Q4H PRN PRN Reason: Pain (Mild 1-3)/fever Last Admin: 12/27/20 08:19 Dose: 650 mg Documented by: Albuterol (Albuterol 6.7 Gm Inhaler) 0 gm INH Q4H PRN PRN Reason: sob/wheezing Last Admin: 12/29/20 09:01 Dose: 2 puff Documented by: Albuterol/Ipratropium (Albuterol/Ipratropium 3.0-0.5 Mg/3 Ml Neb Soln) 3 ml NEB Q4H PRN PRN Reason: Shortness Of Breath/wheezing Last Admin: 12/26/20 05:20 Dose: 3 ml Documented by: Dexamethasone (Dexamethasone 4 Mg Tab) 6 mg PO DAILY [facility] Last Admin: 12/29/20 08:38 Dose: 6 mg Documented by: Docusate Sodium (Docusate Sodium 100 Mg Cap) 100 mg PO BID PRN PRN Reason: Constipation Enoxaparin Sodium (Enoxaparin 40 Mg/0.4 Ml Syringe) 40 mg SUBCUT DAILY [facility] Last Admin: 12/29/20 08:39 Dose: 40 mg Documented by: Remdesivir 100 mg/ Sodium (Chloride) 100 mls @ 100 mls/hr IV Q24H [facility] Stop: 12/29/20 18:29 Last Admin: 12/28/20 16:45 Dose: 100 mls/hr Documented by: Ceftriaxone Sodium 2 gm/ (Sodium Chloride) 100 mls @ 200 mls/hr IV Q24H [facility] Last Admin: 12/29/20 08:39 Dose: 200 mls/hr Documented by: Lorazepam (Lorazepam 1 Mg Tab) 1 mg PO Q6H PRN PRN Reason: Anxiety Last Admin: 12/27/20 19:30 Dose: 1 mg Documented by: Ondansetron HCl (Ondansetron 4 Mg Tab.Dis) 4 mg PO Q4H PRN PRN Reason: nausea, able to take PO Last Admin: 12/27/20 06:33 Dose: 4 mg Documented by: Ondansetron HCl (Ondansetron 4 Mg/2 Ml Sdv) 4 mg IV Q4H PRN PRN Reason: Nausea/Vomiting Last Admin: 12/29/20 05:14 Dose: 4 mg Documented by: Oxycodone HCl (Oxycodone 5 Mg Tab) 5 mg PO Q4H PRN PRN Reason: Pain (moderate 4-6) Phenazopyridine HCl (Phenazopyridine 95 Mg Tab) 95 mg PO TIDPC [facility] Last Admin: 12/29/20 08:38 Dose: 95 mg Documented by: Promethazine HCl/Codeine (Codeine/Promethazine 10-6.25 Mg/5 Ml Syrup 5 Ml Ud Cup) 5 ml PO Q4H PRN PRN Reason: Cough Last Admin: 12/29/20 08:39 Dose: 5 ml Documented by: Temazepam (Temazepam 15 Mg Cap) 15 mg PO BEDTIME PRN PRN Reason: Sleep Last Admin: 12/28/20 21:34 Dose: 15 mg Documented by: Zinc Sulfate (Zinc Sulfate 220 Mg Cap) 220 mg PO DAILY [facility] Last Admin: 12/29/20 08:38 Dose: 220 mg Documented by: Discontinued Medications Albuterol (Albuterol 6.7 Gm Inhaler) Confirm Administered Dose 6.7 gm INH .STK- MED ONE Stop: 12/26/20 08:37 Last Admin: 12/26/20 08:41 Dose: Not Given Documented by: Dexamethasone (Dexamethasone 4 Mg/Ml 5 Ml Mdv) 6 mg IV ONETIME ONE Stop: 12/25/20 16:55 Last Admin: 12/25/20 17:43 Dose: Not Given Documented by: Dextrose/Lactated Ringer's (Dextrose 5%-Lactated Ringers) 1,000 mls @ 250 mls/hr IV ASDIRECTED [facility] Last Admin: 12/25/20 17:44 Dose: 250 mls/hr Documented by: Remdesivir 200 mg/ Sodium (Chloride) 250 mls @ 250 mls/hr IV ONETIME ONE Stop: 12/25/20 16:52 Last Admin: 12/25/20 17:47 Dose: 250 mls/hr Documented by: Remdesivir (Remdesivir) Confirm Administered Dose 100 mls @ as directed .ROUTE .STK-MED ONE Stop: 12/25/20 17:15 Last Admin: 12/25/20 19:24 Dose: Not Given Documented by: Sodium Chloride (Normal Saline) 1,000 mls @ 125 mls/hr IV ASDIRECTED [facility] Last Admin: 12/26/20 05:03 Dose: 125 mls/hr Documented by: Potassium Chloride 10 meq/ (Premix) 100 mls @ 100 mls/hr IV Q1H [facility] Stop: 12/25/20 22:59 Last Admin: 12/26/20 00:33 Dose: 100 mls/hr Documented by: Potassium Chloride 10 meq/ (Premix) 100 mls @ 100 mls/hr IV Q1H [facility] Stop: 12/27/20 14:29 Last Admin: 12/27/20 14:53 Dose: Not Given Documented by: Sodium Chloride (Normal Saline) 1,000 mls @ 50 mls/hr IV ASDIRECTED [facility] Last Admin: 12/27/20 13:51 Dose: 50 mls/hr Documented by: Potassium Chloride 10 meq/ (Premix) 100 mls @ 25 mls/hr IV Q4H [facility] Stop: 12/28/20 05:59 Last Admin: 12/28/20 01:52 Dose: 25 mls/hr Documented by: Metoclopramide HCl (Metoclopramide 10 Mg/2 Ml Sdv) 7.5 mg IVPUSH ONETIME ONE Stop: 12/25/20 16:47 Last Admin: 12/25/20 17:45 Dose: Not Given Documented by: Ondansetron HCl (Ondansetron 4 Mg/2 Ml Sdv) 4 mg IVPUSH ONETIME ONE Stop: 12/25/20 18:09 Last Admin: 12/25/20 18:17 Dose: 4 mg Documented by: Promethazine HCl/Codeine (Codeine/Promethazine 10-6.25 Mg/5 Ml Syrup 5 Ml Ud Cup) 5 ml PO ASDIRECTED PRN PRN Reason: Cough Last Admin: 12/26/20 08:10 Dose: 5 ml Documented by: - Exam Quality Assessment: DVT Prophylaxis. No: Supplemental Oxygen General: Alert, Oriented, Cooperative, No Acute Distress HEENT: Pupils Equal, Pupils Reactive, EOMI, Mucous Membr. Moist/[place] Neck: Supple, Trachea Midline Lungs: Normal Respiratory Effort, Crackles (Bibasilar) Cardiovascular: Regular Rate, Regular Rhythm GI/Abdominal Exam: Normal Bowel Sounds, Soft, Non-Tender, No Distention (Female) Exam: Deferred Back Exam: Normal Inspection, Full Range of Motion Extremities: Normal Inspection, No Pedal Edema Skin: Warm, Dry, Intact Neurological: No New Focal Deficit, Normal Gait, Normal Speech, Normal Tone Psy/Mental Status: Alert, Normal Affect, Normal Mood - Patient Data Lab Results Last 24 hrs: Laboratory Results - last 24 hr 12/29/20 12/29/20 Range/Units 04:58 04:58 WBC 6.74 (3.98-10.04) K/mm3 RBC 5.30 H (3.98-5.22) M/mm3 Hgb 15.0 D (11.2-15.7) gm/dl Hct 45.8 H (34.1-44.9) % MCV 86.4 (79.4-94.8) fl MCH 28.3 (25.6-32.2) pg MCHC 32.8 (32.2-35.5) g/dl RDW Std Deviation 40.9 (36.4-46.3) fL Plt Count 422 H (182-369) K/mm3 MPV 9.1 L (9.4-12.3) fl Neut % (Auto) 63.9 (34.0-71.1) % Lymph % (Auto) 26.9 (19.3-51.7) % [place] % (Auto) 8.3 (4.7-12.5) % Eos % (Auto) 0.1 L (0.7-5.8) Baso % (Auto) 0.4 (0.1-1.2) % Neut # (Auto) 4.30 (1.56-6.13) K/mm3 Lymph # (Auto) 1.81 (1.18-3.74) K/mm3 [place] # (Auto) 0.56 H (0.24-0.36) K/mm3 Eos # (Auto) 0.01 L (0.04-0.36) K/mm3 Baso # (Auto) 0.03 (0.01-0.08) K/mm3 Manual Slide Review Abnormal smear Sodium 142 (136-145) mEq/L Potassium 3.3 L (3.5-5.1) mEq/L Chloride 104 (98-107) mEq/L Carbon Dioxide 30 (21-32) mEq/L Anion Gap 11.3 (5-15) BUN 13 (7-18) mg/dL Creatinine 0.6 (0.55-1.02) mg/dL Est Cr Clr Drug Dosing 110.86 mL/min Estimated GFR (MDRD) > 60 (>60) mL/min BUN/Creatinine Ratio 21.7 H (14-18) Glucose 100 H (70-99) mg/dL Calcium 8.1 L (8.5-10.1) mg/dL Total Bilirubin 0.4 (0.2-1.0) mg/dL AST 53 H (15-37) U/L ALT 44 (14-59) U/L Alkaline Phosphatase 74 (46-116) U/L C-Reactive Protein 2.0 H* (<1.0) mg/dL Total Protein 6.8 (6.4-8.2) g/dl Albumin 2.6 L (3.4-5.0) g/dl Globulin 4.2 gm/dL Albumin/Globulin Ratio 0.6 L (1-2) Result Diagrams: 12/29/20 04:58 12/29/20 04:58 Clive Results Last 24 hrs: Microbiology 12/25/20 23:50 Urine Culture - Preliminary Urine Escherichia Coli Sepsis Event Note - Evaluation Sepsis Screening Result: No Definite Risk - Focused Exam Vital Signs: Vital Signs Temp Pulse Resp BP Pulse Ox Pulse Ox 12/29/20 09:03 93 L 12/29/20 07:51 36.6 C 71 20 97/58 L 93 L 12/29/20 05:08 36.6 C 73 20 118/82 93 L - Problem List & Annotations (1) Pneumonia due to COVID-19 virus SNOMED Code(s): 059970500247583603 Code(s): U07.1 - COVID-19; J12.82 - PNEUMONIA DUE TO CORONAVIRUS DISEASE 2019 Status: Acute Priority: High Current Visit: Yes (2) Respiratory failure with hypoxia SNOMED Code(s): 62390296671888010 Code(s): J96.91 - RESPIRATORY FAILURE, UNSPECIFIED WITH HYPOXIA Status: Acute Priority: High Current Visit: Yes Qualifiers: Chronicity: acute Qualified Code(s): J96.01 - Acute respiratory failure with hypoxia (3) Volume depletion SNOMED Code(s): 100465481 Code(s): E86.9 - VOLUME DEPLETION, UNSPECIFIED Status: Resolved Priority: High Current Visit: Yes (4) Gastroenteritis SNOMED Code(s): 29514146 Code(s): K52.9 - NONINFECTIVE GASTROENTERITIS AND COLITIS, UNSPECIFIED Status: Acute Priority: High Current Visit: Yes - Problem List Review Problem List Initiated/Reviewed/Updated: Yes - My Orders Last 24 Hours: My Active Orders 12/29/20 09:02 Chest Physiotherapy [RT Chest Physiotherapy] [RC] ASDIRECTED - Assessment Assessment:: Assessment - day of admission 12/25/2020 The patient is a 35-year-old lady who had been under treatment for COVID-19 symptoms and had continued to decline. The patient has been admitted as an inpatient. She has been started on remdesivir 100 mg IV starting December 26, 2020 and she has also been placed on dexamethasone. The dexamethasone 6 mg p.o. daily will start tomorrow. The patient also has been ordered to have p.o. Zofran if tolerated or IV Zofran if needed. The patient also has been kept on her home Phenergan and codeine cough syrup. The patient's oxygen saturations will be kept around 92% and the oxygen will be titrated. Repeat laboratory studies have been ordered for the morning. The patient will have regular diet as tolerated. The patient has been encouraged to ambulate. She will have DVT prophylaxis with the use of Lovenox 40 mg subcutaneously daily. The patient should be appropriate for discharge once discontinuation of remdesivir. 12/26/2020 35-year-old female who has known COVID-19 pneumonia presented to ED on 12/25/2020 with worsening symptoms, weakness, and essentially being bedridden. She was admitted and started on remdesivir and dexamethasone. She is also had nausea, vomiting, and diarrhea. Her nausea and vomiting have resolved since admission. She continues to have diarrhea. She is on her home Phenergan and codeine cough syrup. Incentive spirometry and Acapella have been added. Respiratory therapy is consulted. She states she is still very weak. She did show some clinical signs of dehydration and was placed on IV fluids. She has improved and these will be discontinued today. Zinc supplementation has been added. She is complaining of dysuria and UA was obtained and was essentially negative. He was noted to have 1+ protein, 2+ occult blood, 20-30 RBCs and moderate bacteria. hCG was checked and was negative. She has been encouraged to prone whenever able. She is currently off of oxygen with saturations in the very low 90s. Vital signs other flores remain good. For remain hospitalized for continued COVID-19 treatment. Will ordered urine culture and scheduled pyridium for dysuria. 12/27/2020 This is a 35-year-old female admitted to the floor for COVID-19 pneumonia symptoms. She had failed outpatient treatment. Overall she remains stable is. She states she feels about the same as she has. She is been requiring 1 L today and we really discussed importance of Acapella, incentive spirometry, proning, and remaining active in the room. Labs today show WBC of 8.50. Hemoglobin 14.4. Platelet 349,000. Neutrophils are 82.6%. D-dimer was 0.35. Sodium was 142. Potassium today is 3.2 will be supplemented. Given her prior gastroenteritis symptoms we will utilize IV supplementation. Chloride 104. Carbon dioxide 29. Anion gap 12.3. BUN is 12. Creatinine 0.7. GFR greater than 60. Glucose 132. Calcium 8.2. Bilirubin 0.3. AST is 33, ALT 20, alkaline phosphatase 66. CRP is down to 4.7. Protein 7.1. Albumin remains 2.6. Patient has been complaining of dysuria and UA reveals 1+ protein, 2+ occult blood, 20-30 RBCs, and moderate bacteria. Urine culture is ordered and pending. Patient was started on Pyridium yesterday. She continues to receive dexamethasone and remdesivir. We will continue this and work-up weaning her off of this oxygen. Length of stay likely 5 days total to complete remdesivir treatment. 12/28/2020 The patient is a 35-year-old lady who will continue on hospitalization secondary to COVID-19 pneumonia. The patient will have her oxygen titrated and her saturations will be kept around 92%. Her last dose of remdesivir should be for tomorrow. The patient likely will be appropriate for discharge after remdesivir completed. The patient also has E. coli urinary tract infection and sensitivities are currently pending. She is on ceftriaxone and this will be deescalated as necessary. DVT prophylaxis will continue with the use of Lovenox. She is to have her regular diet as tolerated. The patient has been encouraged and instructed in the use of incentive spirometer. Repeat laboratory studies have been ordered for the morning. It is expected that the patient should be appropriate for discharge tomorrow. 12/29/2020 The patient is a 35-year-old lady who will finish her remdesivir this evening. The patient will be retained in hospitalization due to her feeling very weak and fatigued as well as desaturating when up and moving. The patient will be continued on the dexamethasone for now. The patient has been instructed on the use of the Acapella as well as the incentive spirometer. Repeat laboratory studies will be ordered for the morning. The patient's diet will be continued. She is also on DVT prophylaxis with the use of Lovenox to be continued. The juan alberto barbie's urine cultures have grown out pansensitive E. coli and the patient will be transitioned to p.o. medication tomorrow. Patient should be appropriate for discharge tomorrow. - Plan Plan:: Gastroenteritis Pneumonia due to COVID-19 virus Respiratory failure with hypoxia Volume depletion, Resolved Diarrhea Nausea and vomiting, Resolved * Airborne/contact isolation * Dexamethasone day 07/10 * Remdesivir day 3/ * IS/Acapella * RT consult * O2 as needed to keep saturations 88-95% * Continue home Phenergan/codeine cough syrup * Continuous pulse oximetry * Telemetry * Monitor daily labs * PRN albuterol MDI * PRN Duonebs * Prone whenever able * No need for PT/OT at this time * Zinc supplementation * Vitamin D WNL * Antiemetics as ordered * Pain medications as ordered Hypokalemia * Supplement via IV supplementation given recent GI issues. * Monitor labs Anxiety * Situational * Offer encouragement * Consider Ativan PRN Dysuria * UA obtained and negative * Urine culture ordered * Daily azo scheduled TID for now Code status: Full Code PCP: None DVT prophylaxis: Lovenox Disposition: Patient mated to the medical floor on telemetry for management of COVID-19 symptoms. Likely discharge after 4 to 5 days of treatment.
[2020-12-29] MEDS: LORazepam 1 MG Tab PO PRN (10:22)
[2020-12-29] MEDS ORDERED: Potassium Chloride 20 MEQ Tab.ER PO ONE (10:33)
[2020-12-29] MEDS: REMDESIVIR 100 MG in Sodium Chloride 0.9% 100 ML IV SCH (18:06)
[2020-12-29] MEDS: Temazepam 15 MG Cap PO PRN (19:52)
[2020-12-30] MEDS: Acetaminophen 325 MG Tab PO PRN (03:04)
[2020-12-30] MEDS: Codeine/Promethazine 10-6.25 MG/5 ML Syrup 5 ML UD Cup PO PRN ×2 (03:06→09:02)
[2020-12-30] MEDS: Zinc Sulfate 220 MG Cap PO SCH (08:56)
[2020-12-30] MEDS: cefTRIAXone 2 GM in Sodium Chloride 0.9% 100 ML IV SCH (08:56)
[2020-12-30] MEDS: Dexamethasone 4 MG Tab PO SCH (08:56)
[2020-12-30] MEDS: Enoxaparin 40 MG/0.4 ML Syringe SUBCUT SCH (08:56)
[2020-12-30] MEDS: Phenazopyridine 95 MG Tab PO SCH (08:56)
[2020-12-30] MEDS ORDERED: Potassium Chloride 20 MEQ Tab.ER PO ONE (09:00)
[2020-12-30] MEDS: Albuterol 6.7 GM Inhaler INH PRN (09:05)
== END 2020-12-30 12:10 | disposition home or self-care (01) | DRG 177 ==
LOC: JD.ED 16:19 → JD.MS 17:43
PROVIDERS: ADMIT Internal Medicine; ATTEND Internal Medicine
PROC: XW033E5 Introduction of Remdesivir Anti-infective into Peripheral Vein, Percutaneous Approach, New Technology Group 5 (ICD-10-PCS; principal; 2020-12-25)
PROC: 3E0333Z Introduction of Anti-inflammatory into Peripheral Vein, Percutaneous Approach (ICD-10-PCS; 2020-12-25)
PROC: 8E0ZXY6 Isolation (ICD-10-PCS; 2020-12-26)
DX: U07.1 COVID-19 (principal); J12.82 Pneumonia due to coronavirus disease 2019; J96.01 Acute respiratory failure with hypoxia; N30.01 Acute cystitis with hematuria; A08.39 Other viral enteritis; E86.9 Volume depletion, unspecified; F41.9 Anxiety disorder, unspecified; E87.6 Hypokalemia; H54.7 Unspecified visual loss; R30.0 Dysuria; B96.20 Unspecified Escherichia coli [E. coli] as the cause of diseases classified elsewhere
CPT/HCPCS: 36415; 36600; 71045; 71045-26; 80048; 80053; 81001; 81025; 82306; 82728; 82803; 83615; 83735; 83880; 84484; 85025; 85379; 85610; 85730; 86140; 87086; 87088; 87186; 93005; 93010; 94640; 94667; 94668; 94761; 94762; 99222; 99233; 99239; 99285; 99285-25; A9270-GY; J0696; J1650; J2405; J3480; J7030; J7050; J7121; J7620-GY; J8540